=== PATIENT | male | born 1955 | race Caucasian/White ===

== ENCOUNTER → 2020-04-08 09:20 | Outpatient (BNVA) | payer OTHER, SELFPAY | PROVIDERS: PCP Family Medicine; Visit Provider Internal Medicine Cardiovascular Disease | DX: I48.0 Paroxysmal atrial fibrillation (principal); R06.02 Shortness of breath; I44.7 Left bundle-branch block, unspecified | CPT/HCPCS: 93005 ==

== ENCOUNTER → 2020-04-29 13:26 | Outpatient (REF) | payer OTHER, SELFPAY ==
--- NOTE | 2020-04-29 13:28 | HM_ITS ---
TEST PERFORMED: Cardiac event monitoring. REQUESTING PHYSICIAN: Dr. Fragoso. INDICATION: Paroxysmal atrial fibrillation. ENROLLMENT PERIOD: 04/29/2020 to 05/29/2020. FINDINGS: In the above monitoring period, the underlying rhythm was sinus. Overall, there is no evidence of any supraventricular or ventricular arrhythmias or ectopy. There was no evidence of any atrial fibrillation. Heart rates state ranged from 68 to 86/min. CONCLUSION: Study shows sinus rhythm only without any evidence of atrial fibrillation or other arrhythmias. Kanu Holman MD HS/FERNY / [id number] MTDD
--- NOTE | 2020-04-29 13:28 | CA_ITS ---
Transthoracic Echocardiogram Patient (Last, First, Middle): Kevin Vaughn J Gender: Male Date of : 1955 Age: 64 Procedure Date: 04/29/2020 Procedure Type: Transthoracic Echocardiogram Location: OP Height: 180.34 cm Weight: 97.52 kg BSA: 2.17 m2 Heart Rate: bpm BP: 140 / 75 mmHg Spike Maker: NARDA Referring MD: Tyson Fragoso MD Symptoms: R06.02 - Shortness of breath Study Quality: Fair ECG Rhythm: Sinus Conclusions: - The left ventricular systolic function is normal. The visually estimated ejection fraction is between 55-60%. - There is mild calcification of the aortic valve. - No obvious valvular pathology seen on this study. Findings Left Ventricle Normal left ventricular cavity size. There is mildly increased left ventricular wall thickness. The left ventricular systolic function is normal. The visually estimated ejection fraction is between 55-60%. There is no evidence of regional wall motion abnormalities. Diastolic function is normal for age. Right Ventricle Normal right ventricular cavity size and systolic function. Atria The left atrium is normal in size. The right atrium is normal in size. Aortic Valve There is a normal trileaflet aortic valve. There is mild calcification of the aortic valve. There is no aortic valve stenosis. There is no aortic valve regurgitation. Mitral Valve The mitral valve appears normal. There is no mitral valve regurgitation. There is no mitral valve stenosis. Pulmonic Valve The pulmonic valve was not well visualized. Tricuspid Valve Normal tricuspid valve structure. There is trace tricuspid valve regurgitation. The pulmonary artery systolic pressure is normal. Great Vessels Top normal ascending aortic size at 3.6 cm. Venous The inferior vena cava was not well visualized. The inferior vena cava is normal in size and collapses greater than 50% with inspiration. Pericardium/Pleural There is no evidence of pericardial effusion. Recommendations, Care & Conclusions No obvious valvular pathology seen on this study. Measurements 2D Linear Measurements IVSd: 1.50 0.6-0.9/0.6-1.0 cm LVIDd: 3.95 3.9-5.3/4.2-5.9 cm LVIDd Index: 1.82 2.4-3.2/2.2-3.1 cm/m2 LVIDs: 2.74 2.0-3.6 cm LVPWd: 1.34 0.7-1.1 cm Ao Root: 3.80 2.1-3.5 cm LA Diam: 2.90 2.7-3.8/3.0-4.0 cm LAIDs Index: 1.34 1.5-2.3 cm/m2 LV Mass: 261.47 67-162/88-224 g LV Mass Index: 120.49 43-95/49-115 g/m2 LVOT Diam: 2.40 3.0+(-)1.3 cm 2D Systolic Function EF 4C: 64.60 >55% Mitral Valve MV Pk E: 0.64 MV PK A: 0.93 MV Decel Time: 187.00 E/A: 0.70 E'Lateral: 6.00 E'Medial: 7.06 E/E' Med: 9.10 E/E' Lat: 10.70 PHT: 55.00 MVA PHT: 4.00 Decel [place]: 3.43 Aortic Valve AoV Pk Anibal: 1.10 AoV Pk Grad: 5.00 LVOT LVOT Pk Anibal: 0.89 LVOT Mn Anibal: 0.60 LVOT VTI: 0.18 LVOT Pk Grad: 3.00 LVOT Mn Grad: 2.00 LVOT Diam: 2.40 LVOT Area: 4.52 Diastolic Function MV Pk E: 0.64 MV Pk A: 0.93 E/A: 0.70 E'Medial: 7.06 E/E' Med: 9.10 E' Laterial: 6.00 E/E' Lat: 10.70 Tricuspid Valve TR Pk Anibal: 2.32 TR Pk Grad: 22.00 Great Vessels Aorta Ao Root-2D: 3.80 2.0-3.7 cm Ao Asc: 3.60 2.1-3.4 cm Updated in Other Vendor System with Status of Final Kanu Holman MD electronically signed on 04/29/2020 5:15:02 PM with status of Final
== END ==
LOC: HO.CARD 13:26
PROVIDERS: PCP Family Medicine; Visit Provider Internal Medicine Cardiovascular Disease
DX: I48.0 Paroxysmal atrial fibrillation (principal); I44.7 Left bundle-branch block, unspecified; I10 Essential (primary) hypertension; R06.02 Shortness of breath
CPT/HCPCS: 93270; 93306

== ENCOUNTER → 2020-06-05 08:28 | Outpatient (BNVA) | payer OTHER, SELFPAY | PROVIDERS: PCP Family Medicine; Visit Provider Internal Medicine Cardiovascular Disease | DX: R06.02 Shortness of breath (principal); I48.0 Paroxysmal atrial fibrillation; I44.7 Left bundle-branch block, unspecified; I10 Essential (primary) hypertension | CPT/HCPCS: 93005 ==

== ENCOUNTER 2020-06-10 15:45 | Outpatient (REF) | payer OTHER, SELFPAY ==
--- NOTE | ~2020-06-10 | XR_ITS ---
EXAMINATION: XR CHEST CLINICAL INFORMATION: Shortness of breath. COMPARISON: Chest 09/13/2019 TECHNIQUE: 2 views of the chest were obtained. FINDINGS: The lungs are well-expanded and clear of acute process. The heart size and pulmonary vascularity is normal. There is mild spondylosis dorsal spine. No lytic process seen. XR/XR chest 2V IMPRESSION: Unremarkable chest exam
== END 2020-06-10 15:46 | disposition home or self-care (01) ==
LOC: HO.XRAY 15:45
PROVIDERS: PCP Family Medicine; Visit Provider Internal Medicine
DX: R06.02 Shortness of breath (principal); J30.9 Allergic rhinitis, unspecified; J98.01 Acute bronchospasm
CPT/HCPCS: 71046

== ENCOUNTER 2020-07-04 15:45 | Outpatient (REF) | payer OTHER, SELFPAY ==
--- NOTE | 2020-07-04 17:22 | PFT_ITS ---
FLOWS: FEV1 of 82% of predicted at 2.89 L. FVC 74% of predicted at 3.53 L. FEV1 to FVC ratio of 0.82. No bronchodilator response. LUNG VOLUMES: Total lung capacity 87% of predicted at 6.30 L. Residual volume 109% of predicted at 2.67 L. Slow vital capacity 75% of predicted at 3.63 L. Expiratory reserve volume 24% of predicted at 0.34 L. Diffusion capacity is mildly decreased, diffusion capacity suggests normal after correction for alveolar ventilation. IMPRESSION: No obstructive or restrictive ventilatory defect. No bronchodilator response. Decreased expiratory reserve volume suggests extrathoracic restriction likely secondary to abdominal obesity. Daquan Limon MD AP/MODL / [id number]
== END 2020-07-04 15:46 | disposition home or self-care (01) ==
LOC: HO.RESP 15:45
PROVIDERS: PCP Family Medicine; Visit Provider Internal Medicine
DX: J98.01 Acute bronchospasm (principal); R06.02 Shortness of breath
CPT/HCPCS: 94060; 94727; 94729

== ENCOUNTER → 2020-07-10 15:16 | Outpatient (BNVA) | payer OTHER, SELFPAY | PROVIDERS: PCP Family Medicine; Visit Provider Internal Medicine ==

== ENCOUNTER 2020-11-26 13:50 | Outpatient (REF) | payer OTHER, SELFPAY | END 2020-11-26 13:51 | disposition home or self-care (01) | LOC: HO.HMGCLDS 13:50 | PROVIDERS: PCP Family Medicine; Visit Provider Internal Medicine | DX: Z20.822 Contact with and (suspected) exposure to COVID-19 (principal) | CPT/HCPCS: C9803; U0003; U0005 ==

== ENCOUNTER 2021-03-24 06:13 | Outpatient (REF) | payer OTHER, SELFPAY | END 2021-03-24 06:14 | disposition home or self-care (01) | LOC: HO.HMGCLDS 06:13 | PROVIDERS: PCP Family Medicine; Visit Provider Internal Medicine | DX: Z20.822 Contact with and (suspected) exposure to COVID-19 (principal) | CPT/HCPCS: C9803; U0003; U0005 ==

== ENCOUNTER → 2021-04-14 15:17 | Outpatient (BNVA) | payer OTHER, SELFPAY | PROVIDERS: PCP Family Medicine; Visit Provider Internal Medicine ==

== ENCOUNTER 2021-06-11 08:41 | Outpatient (REF) | payer OTHER, SELFPAY ==
--- NOTE | ~2021-06-11 | XR_ITS ---
EXAMINATION: XR ANKLE, RIGHT CLINICAL INFORMATION: Right ankle pain COMPARISON: None TECHNIQUE: AP, lateral, and mortise views of the right ankle. FINDINGS: No fracture or dislocation. The ankle mortise is congruent. Circumferential soft tissue swelling. No ankle joint effusion. Vascular calcifications. Heel spurs. XR/XR ankle RT min 3V IMPRESSION: Soft tissue swelling diffusely. No acute osseous abnormality. Heel spurs.
== END 2021-06-11 08:42 | disposition home or self-care (01) ==
LOC: HO.HMGCX 08:41
PROVIDERS: Visit Provider Nurse Practitioner Family
DX: M25.571 Pain in right ankle and joints of right foot (principal); M77.31 Calcaneal spur, right foot
CPT/HCPCS: 73610

== ENCOUNTER 2021-08-26 08:37 | Outpatient (REF) | payer OTHER, SELFPAY ==
[2021-08-26 11:04] LABS: Hematocrit 47.3 % (42.0-52.0); Hemoglobin 15.6 g/dl (14.0-18.0); Mean Corpuscular Hemoglobin 27.8 pg (27.0-33.0); Mean Corpuscular Volume 84.3 fL (80.0-98.0); Mean Platelet Volume 9.6 fL (9.4-12.4); Platelet Count 186 X10*3/uL (160-400); Red Blood Count 5.61 X10*6/uL (4.60-5.80); Red Cell Distribution Width 14.4 % (11.0-16.0); White Blood Count 6.6 X10*3/uL (4.8-10.8)
[2021-08-26 11:52] LABS: Anion Gap 11 (12-20); Blood Urea Nitrogen 19 mg/dL (9-16); Calcium 10.1 mg/dL (8.4-10.2); Carbon Dioxide 29 mmol/L (22-29); Chloride 102 mmol/L (96-108); Estimated Glomerular Filt Rate 45; Glucose Random 129 mg/dL (60-115); Sodium 137 mmol/L (135-145)
== END 2021-08-26 08:38 | disposition home or self-care (01) ==
LOC: HO.LAB 08:37
PROVIDERS: PCP Family Medicine; Referring Provider Family Medicine; Visit Provider Internal Medicine Cardiovascular Disease
DX: I48.0 Paroxysmal atrial fibrillation (principal); I44.7 Left bundle-branch block, unspecified; I10 Essential (primary) hypertension
CPT/HCPCS: 36415; 80048; 85027; 93005

== ENCOUNTER 2022-02-26 12:40 | Emergency (ER) | payer BC, SELFPAY ==
--- NOTE | ~2022-02-26 | CT_ITS ---
EXAMINATION: CT ANGIOGRAM OF THE CHEST WITH AND WITHOUT CONTRAST (CT PULMONARY ANGIOGRAM FOR PE) CLINICAL INFORMATION: Reason for Exam COVID positive, pleuritic chest pain, dyspnea, rul COMPARISON: Chest radiographs 02/26/2022, remote CTA chest 11/29/2013. TECHNIQUE: Prior to contrast administration, noncontrast localization images were obtained. Subsequently, multidetector volumetric imaging was performed from the thoracic inlet to below the diaphragms following the administration of 65 mL Omnipaque 350 intravenous contrast. No contrast reaction reported Sagittal, coronal, and MIP oblique sagittal reformatted images were obtained on the CT workstation, uploaded to PACS, and reviewed. This CT examination was performed using dose optimization techniques as appropriate, variously including the following: *Automated exposure control *Adjustment of mA and/or kV according to patient size (this includes techniques or standardized protocols for targeted exams where dose is matched to indication/reason for exam; i.e. extremities or head) *Use of iterative reconstruction technique Total exam dose-length product 318 mGy-cm FINDINGS: QUALITY OF STUDY/CONTRAST BOLUS: Satisfactory. PULMONARY ARTERIES: No central or segmental pulmonary emboli. THORACIC AORTA: No aneurysm or dissection. 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 LUNG: No focal consolidation, nodules or masses. There is no bronchiectasis. Mild thickening of the bronchiolar markings is seen bilateral lower zones. PLEURA: No pleural effusion or pneumothorax. MEDIASTINUM: Normal heart size. No pericardial effusion. No hilar or mediastinal lymphadenopathy. No evidence of septal bowing or right heart strain. CORONARY ARTERY CALCIFICATION: Present. CHEST WALL/AXILLA: No axillary or internal mammary lymphadenopathy. OSSEOUS STRUCTURES: No acute or suspicious osseous abnormality. UPPER ABDOMEN: Unremarkable. No reflux of contrast into the hepatic veins to suggest elevated right heart pressures. CT/CT angio chest PE protocol IMPRESSION: 1. No pulmonary embolism. 2. Mild thickening of bronchiolar markings bilateral lower zones. No focal consolidation, effusion, or adenopathy. 3. Congenital aberrant right subclavian artery similar to prior exam. VTE: negative
--- NOTE | ~2022-02-26 | XR_ITS ---
EXAMINATION: XR CHEST CLINICAL INFORMATION: Shortness of breath. Cough. COMPARISON: None TECHNIQUE: 2 views of the chest were obtained. FINDINGS: The lungs are hyperinflated but clear of acute process. The heart size and pulmonary vascularity is normal. There is mild spondylosis of dorsal spine without lytic or sclerotic process. XR/XR chest 2V IMPRESSION: Unremarkable chest exam.
[2022-02-26 13:45] VITALS: BP 137/82; PULSE 87; RESP 22; TEMP 36.6; O2SAT 96; BMI 30.7
--- NOTE | 2022-02-26 13:45 | ED.URI ---
HPI - URI/Sore Throat General Chief Complaint: Dyspnea <Cheryl Rosado CNP - Last Filed: 02/26/22 13:52> Stated Complaint: chest congestion, cough <Cheryl Rosado CNP - Last Filed: 02/26/22 13:52> Time Seen by Provider: 02/26/22 14:06 <Cheryl Rosado CNP - Last Filed: 02/26/22 13:52> Source: patient <Carlos Alberto Mustafa MD - Last Filed: 02/26/22 17:37> Mode of arrival: ambulatory <Carlos Alberto Mustafa MD - Last Filed: 02/26/22 17:37> Limitations: no limitations <Carlos Alberto Mustafa MD - Last Filed: 02/26/22 17:37> History of Present Illness HPI Narrative: 58-year-old male who presents emergency department for evaluation of cough, chest pain, shortness of breath and dyspnea on exertion. The patient states that he became ill on 02/19/2022 (2 weeks prior to evaluation). He states that he had fever, chills, cough, chest pain and shortness of breath. The patient then tested positive for COVID-19 on Tuesday02/17/2022 (9 days prior to evaluation). The patient states that he did received 2 Pfizer vaccinations and a booster vaccination. The patient states that he could not take Paxlovid but he was treated with remdesivir IV daily x3 does. He states that he did feel slightly better however he continues to have a persistent, nonproductive cough which is causing him to have pleuritic chest pain diffusely throughout his anterior chest. He states that the pain with coughing is 8/10. He chest pain with respiration. Patient states he has been taking Tylenol, antihistamines and cough suppressants with no relief of his cough in his chest pain. He states that he has not been able to sleep the last 24 hours secondary to the cough and pain. Patient states he does have a history of atrial fibrillation and he does take Xarelto (rivaroxaban). He has not noticed any pain or swelling in his lower extremities. <Carlos Alberto Mustafa MD - Last Filed: 02/26/22 17:37> Related Data Home Medications: Home Medications Medication Instructions Recorded Confirmed allopurinol 300 mg tablet 300 mg PO DAILY 04/08/20 08/26/21 clonazepam 0.5 mg tablet 0.5 mg PO BID PRN 04/08/20 08/26/21 fluticasone propionate 50 1 spray intranasal DAILY 07/10/20 08/26/21 mcg/actuation nasal spray,suspension (Flonase Allergy Relief) propranolol 80 mg tablet 40 mg PO BID 10/09/21 guaifenesin 600 mg tablet, 600 mg PO BID PRN 11/17/21 extended release 12 hr (Mucinex) losartan 50 mg tablet 50 mg PO DAILY 11/17/21 Previous Rx's Medication Instructions Recorded rivaroxaban 20 mg tablet (Xarelto) 20 mg PO QPM #90 tabs 10/09/21 montelukast 10 mg tablet 10 mg PO BEDTIME for asthma #90 12/25/21 tabs albuterol sulfate 90 mcg/actuation 2 puff inhalation Q4-6H PRN 02/26/22 aerosol inhaler (ProAir HFA) shortness of breath or wheezing #8.5 grams oxycodone 5 mg tablet 5 mg PO Q4H PRN pain #14 tabs 02/26/22 <Cheryl Rosado CNP - Last Filed: 02/26/22 13:52> Allergies/Adverse Reactions: Allergies Allergy/AdvReac Type Severity Reaction Status Date / Time No Known Drug Allergies Allergy Unknown NONE Verified 11/17/21 16:37 <Cheryl Rosado CNP - Last Filed: 02/26/22 13:52> Review of Systems Review of Systems: Yes all other systems are reviewed and are negative <Carlos Alberto Mustafa MD - Last Filed: 02/26/22 17:37> [facility] Past Medical History [facility] Narrative: Social history: He denies tobacco use. States that he drinks alcohol on the weekends. Denies drug use. <Carlos Alberto Mustafa MD - Last Filed: 02/26/22 17:37> Medical History: Medical History Allergic rhinitis Cough Cough due to bronchospasm HTN (hypertension) LBBB (left bundle branch block) Paroxysmal atrial fibrillation <Cheryl Rosado CNP - Last Filed: 02/26/22 13:52> Surgical History: Surgical History History of hip surgery History of knee surgery <Cheryl Rosado CNP - Last Filed: 02/26/22 13:52> Family History Family History: Family History Father Myocardial infarction Mother Diabetes <Cheryl Rosado CNP - Last Filed: 02/26/22 13:52> Social History Social History: Social History Alcohol intake: current Alcohol intake frequency: holidays/special occasions only Patient Tobacco Use Status: Never used Tobacco Smoked in Last 30 Days: No Use of substances other than those prescribed or required for medical reasons: No Advance Directives: No <Cheryl Rosado CNP - Last Filed: 02/26/22 13:52> Physical Exam Vital Signs: Vital Signs: Last Vital Signs Temp 97.9 F 02/26/22 13:45 Pulse 87 02/26/22 13:45 Resp 22 H 02/26/22 13:45 BP 137/82 02/26/22 13:45 Pulse Ox 96 02/26/22 13:45 O2 Del Method 02/26/22 13:45 BMI result Body Mass Index 30.7 <Cheryl Rosado CNP - Last Filed: 02/26/22 13:52> Vital Signs: Last Vital Signs Temp 97.9 F 02/26/22 13:45 Pulse 87 02/26/22 13:45 Resp 22 H 02/26/22 13:45 BP 137/82 02/26/22 13:45 Pulse Ox 96 02/26/22 13:45 O2 Del Method 02/26/22 13:45 BMI result Body Mass Index 30.7 <Carlos Alberto Mustafa MD - Last Filed: 02/26/22 17:37> Const: Other: Awake, alert, male patient, answers all questions appropriately, as paroxysm of coughing which caused some have significant chest pain, cough sounds nonproductive <Carlos Alberto Mustafa MD - Last Filed: 02/26/22 17:37> HEENT: Head: Yes normal to inspection, Yes normocephalic and Yes atraumatic <MD Nicky Gallagher Last Filed: 02/26/22 17:37> Ears: external ears normal <MD Nicky Gallagher Last Filed: 02/26/22 17:37> General nose exam: Normal external nose present <MD Nicky Gallagher Last Filed: 02/26/22 17:37> Face and sinus: Yes normal facial exam <MD Nicky Gallagher Last Filed: 02/26/22 17:37> Mouth: Normal oral and palatal mucosa present <MD Nicky Gallagher Last Filed: 02/26/22 17:37> Throat: Yes posterior oropharynx normal <MD Nicky Gallagher Last Filed: 02/26/22 17:37> Eyes: General: appearance normal, both eyes and all related structures <MD Nicky Gallagher Last Filed: 02/26/22 17:37> Pupils: Equal, round and reactive pupils present <MD Nicky Gallagher Last Filed: 02/26/22 17:37> Neck: Neck: Yes normal visual inspection, Yes no lymphadenopathy, Yes trachea midline and Yes supple <MD Nicky Gallagher Last Filed: 02/26/22 17:37> Chest: Chest palpation & inspection: normal inspection of the chest and normal palpation of entire chest wall <MD Nicky Gallagher Last Filed: 02/26/22 17:37> Resp: Effort & Inspection: normal respiratory effort and able to speak in complete sentences <MD Nicky Gallagher Last Filed: 02/26/22 17:37> Auscultation: rhonchi (Diffuse rhonchi), no wheezes and other (Breath sounds diminished at the bases but symmetric) <MD Nicky Gallagher Last Filed: 02/26/22 17:37> Cardio: Rate: regular rate <MD Nicky Gallagher Last Filed: 02/26/22 17:37> Rhythm: regular rhythm <Carlos Alberto Mustafa MD - Last Filed: 02/26/22 17:37> Heart sounds: S1 normal heart sound present, S2 normal heart sound present and no murmurs <Carlos Alberto Mustafa MD - Last Filed: 02/26/22 17:37> GI: Inspection: Yes normal to inspection <Carlos Alberto Mustafa MD - Last Filed: 02/26/22 17:37> Palpation (GI): Soft to palpation, nontender and no guarding <Carlos Alberto Mustafa MD - Last Filed: 02/26/22 17:37> Auscultation: normal bowel sounds <Carlos Alberto Mustafa MD - Last Filed: 02/26/22 17:37> : General: Yes no CVA tenderness <Carlos Alberto Mustafa MD - Last Filed: 02/26/22 17:37> Back/Spine/Pelvis: Back: no CVA tenderness <Carlos Alberto Mustafa MD - Last Filed: 02/26/22 17:37> Skin: General skin exam: no rashes or lesions noted <Carlos Alberto Mustafa MD - Last Filed: 02/26/22 17:37> Neuro: Cranial nerves: Yes CN's II-XII intact bilaterally and Yes Equal, round and reactive pupils present <Carlos Alberto Mustafa MD - Last Filed: 02/26/22 17:37> Cognition (Neuro): normal cognition <Carlos Alberto Mustafa MD - Last Filed: 02/26/22 17:37> Motor exam (neuro): 5/5 motor strength present throughout <Carlos Alberto Mustafa MD - Last Filed: 02/26/22 17:37> Extrem: General: Yes normal to inspection <Carlos Alberto Mustafa MD - Last Filed: 02/26/22 17:37> Psych: Appearance: grossly normal <Carlos Alberto Mustafa MD - Last Filed: 02/26/22 17:37> Speech and movement: Normal speech and movement present <Carlos Alberto Mustafa MD - Last Filed: 02/26/22 17:37> Affect: normal affect <Carlos Alberto Mustafa MD - Last Filed: 02/26/22 17:37> Attitude: cooperative <Carlos Alberto Mustafa MD - Last Filed: 02/26/22 17:37> Thought process: Normal thought process present <Carlos Alberto Mustafa MD - Last Filed: 02/26/22 17:37> Thought content: Normal thought content present <Carlos Alberto Mustafa MD - Last Filed: 02/26/22 17:37> Course Course Course Narrative: RME: Patient is a 66-year-old male with past medical history of Atrial fibrillation, HTN, mild asthma who presents emergency department for evaluation of cough, chest congestion. COVID-19 positive 9 days ago, due to anticoagulant was unable to take Paxlovid, took monoclonal antibody infusion. Initially was feeling better intil symptoms worsened 5 days ago, feeling feverish, worse cough, and facial pain/pressure. PE: Appears fatigued, no apparent respiratory distress, rhonchi upper lobes, diminished at the bilateral bases. Plan: Chest x-ray <Cheryl Rosado CNP - Last Filed: 02/26/22 13:52> RME: Patient is a 66-year-old male with past medical history of Atrial fibrillation, HTN, mild asthma who presents emergency department for evaluation of cough, chest congestion. COVID-19 positive 9 days ago, due to anticoagulant was unable to take Paxlovid, took monoclonal antibody infusion. Initially was feeling better intil symptoms worsened 5 days ago, feeling feverish, worse cough, and facial pain/pressure. PE: Appears fatigued, no apparent respiratory distress, rhonchi upper lobes, diminished at the bilateral bases. Plan: Chest x-ray Course: RME was reviewed: 58-year-old male with COVID symptoms times 14 days, tested positive 9 days prior who presents emergency department for evaluation of persistent cough, chest pain, shortness of breath, dyspnea on exertion. Patient has paroxysms of coughing which caused significant anterior chest pain. Vital signs revealed an elevated respiratory rate of 22 with an O2 saturation of 96% on room air. Lung exam revealed diffuse rhonchi with diminished breath sounds at the bases but the breath sounds are symmetric. Chest x-ray ordered by provider in triage revealed no acute disease. I ordered a laboratory evaluation includes CBC, CMP, D-dimer, PT/INR, PTT, LDH, ferritin, CRP and ESR. I will obtain a CT scan of the chest with IV contrast PE protocol to rule out pulmonary embolism as the cause of his symptoms. Patient was ordered to get Toradol 15 mg IV for his pleuritic chest pain and oxycodone 5 mg orally for his cough. 17 14: Laboratory evaluation: Elevated ESR 40, elevated CRP 4.83, elevated iron 304. Elevated BUN and creatinine 19 and 1.45-chronic. Radiology evaluation: Chest x-ray was unremarkable. CT pulmonary angiogram PE protocol interpreted as follows: IMPRESSION: 1. No pulmonary embolism. 2. Mild thickening of bronchiolar markings bilateral lower zones. No focal consolidation, effusion, or adenopathy. 3. Congenital aberrant right subclavian artery similar to prior exam. VTE: negative Dictated By:Santosh Mcdonough MD The patient's workup was reassuring suggesting that the patient's symptoms are secondary to his COVID-19 infection with no evidence of pneumonia or pulmonary embolism. The patient did get some improvement with the above treatment he was given a 2nd dose of oxycodone 5 mg orally and albuterol inhaler 2 puffs with spacer. Patient will be discharged home with a prescription for oxycodone albuterol. <Carlos Alberto Mustafa MD - Last Filed: 02/26/22 17:37> Medications Administered Discontinued Medications Generic Name Dose Route Start Last Admin Trade Name Freq PRN Reason Stop Dose Admin Sodium Chloride 1,000 mls @ 999 mls/hr 02/26/22 14:40 02/26/22 16:54 Ns IV 02/26/22 15:40 Infused .Q1H1M STA Infusion Iohexol 100 ml 02/26/22 16:26 02/26/22 16:27 Iohexol 350 Mg/Ml 100 Ml Infus..Btl IV 02/26/22 16:27 65 ml ONCE ONE Administration Ketorolac Tromethamine 15 mg 02/26/22 14:40 02/26/22 15:32 Ketorolac Tromethamine 15 Mg/Ml Vial IVPUSH 02/26/22 14:41 15 mg ONCE STA Administration Oxycodone HCl 5 mg 02/26/22 14:40 02/26/22 15:31 Oxycodone Hcl Immed Release 5 Mg Tablet PO 02/26/22 14:41 5 mg ONCE STA Administration <Cheryl Stephanie Barcome, WELFARE AIDE - Last Filed: 02/26/22 13:52> Medications Administered Discontinued Medications Generic Name Dose Route Start Last Admin Trade Name Hernesto PRN Reason Stop Dose Admin Sodium Chloride 1,000 mls @ 999 mls/hr 02/26/22 14:40 02/26/22 16:54 Ns IV 02/26/22 15:40 Infused .Q1H1M STA Infusion Iohexol 100 ml 02/26/22 16:26 02/26/22 16:27 Iohexol 350 Mg/Ml 100 Ml Infus..Btl IV 02/26/22 16:27 65 ml ONCE ONE Administration Ketorolac Tromethamine 15 mg 02/26/22 14:40 02/26/22 15:32 Ketorolac Tromethamine 15 Mg/Ml Vial IVPUSH 02/26/22 14:41 15 mg ONCE STA Administration Oxycodone HCl 5 mg 02/26/22 14:40 02/26/22 15:31 Oxycodone Hcl Immed Release 5 Mg Tablet PO 02/26/22 14:41 5 mg ONCE STA Administration <Carlos Alberto Mustafa MD - Last Filed: 02/26/22 17:37> MDM - URI/Sore Throat Medical Records Attestation: I reviewed the patient's medical records. <Carlos Alberto Mustafa MD - Last Filed: 02/26/22 17:37> Lab Data Attestation: I reviewed the patient's lab results. <Carlos Alberto Mustafa MD - Last Filed: 02/26/22 17:37> Result diagrams: : 02/26/22 15:22 02/26/22 15:22 <Cheryl Rosado CNP - Last Filed: 02/26/22 13:52> Labs: Lab Results 02/26/22 02/26/22 02/26/22 Range/Units 15:22 15:22 15:22 WBC 7.8 (4.8-10.8) X10*3/uL RBC 5.33 (4.60-5.80) X10*6/uL Hgb 15.0 (14.0-18.0) g/dl Hct 45.0 (42.0-52.0) % MCV 84.4 (80.0-98.0) fL MCH 28.1 (27.0-33.0) pg MCHC 33.3 (31.0-36.0) g/dl RDW 12.9 (11.0-16.0) % Plt Count 217 (160-400) X10*3/uL MPV 9.2 L (9.4-12.4) fL Immature Gran % (Auto) 0.6 H (0.0-0.4) % Neut % (Auto) 64.7 (45-73) % Lymph % (Auto) 17.2 L (20-40) % Bollinger % (Auto) 11.9 H (2-11) % Eos % (Auto) 5.2 H (0-4) % Baso % (Auto) 0.4 (0-2) % Lymph # (Auto) 1.4 (1.2-4.9) X10*3/uL Bollinger # (Auto) 0.9 (0.1-1.2) X10*3/uL Eos # (Auto) 0.4 (0.0-0.4) X10*3/uL Baso # (Auto) 0.0 (0.0-0.2) X10*3/uL Abs Immat Gran (auto) 0.05 H (0.00-0.03) X10*3/uL Absolute Neuts (auto) 5.1 (2.0-8.3) x10*3/uL Absolute Nucleated RBC 0.000 (0.0-0.012) X10*3/uL Nucleated RBC % (auto) 0.0 (0.0-0.2) /100WBC ESR 40 H (0-15) MM/HR PT 16.0 H (10.0-13.1) SEC INR 1.4 H (0.9-1.1) APTT 33.1 (26.0-36.4) SEC D-Dimer High Sensitivty < 150 NG/ML Sodium (135-145) mmol/L Potassium (3.3-5.1) mmol/L Chloride (96-108) mmol/L Carbon Dioxide (22-29) mmol/L Anion Gap (12-20) BUN (9-16) mg/dL Creatinine (0.5-1.4) mg/dL Estim Creat Clear Calc Estimated GFR Random Glucose (60-115) mg/dL Lactic Acid (0.5-2.0) mmol/L Calcium (8.4-10.2) mg/dL Ferritin (20-250) ng/mL Total Bilirubin (0.0-1.0) mg/dL AST (5-37) U/L ALT (0-40) U/L Alkaline Phosphatase (39-117) U/L Lactate Dehydrogenase (118-273) U/L Total Creatine Kinase (38-174) U/L Troponin I High Sens (<3.5-35.0) ng/L C-Reactive Protein (< or = 0.50) mg/dL Total Protein (6.5-8.0) g/dL Albumin (3.5-5.0) g/dL 02/26/22 02/26/22 02/26/22 Range/Units 15:22 15:22 15:22 WBC (4.8-10.8) X10*3/uL RBC (4.60-5.80) X10*6/uL Hgb (14.0-18.0) g/dl Hct (42.0-52.0) % MCV (80.0-98.0) fL MCH (27.0-33.0) pg MCHC (31.0-36.0) g/dl RDW (11.0-16.0) % Plt Count (160-400) X10*3/uL MPV (9.4-12.4) fL Immature Gran % (Auto) (0.0-0.4) % Neut % (Auto) (45-73) % Lymph % (Auto) (20-40) % Bollinger % (Auto) (2-11) % Eos % (Auto) (0-4) % Baso % (Auto) (0-2) % Lymph # (Auto) (1.2-4.9) X10*3/uL Bollinger # (Auto) (0.1-1.2) X10*3/uL Eos # (Auto) (0.0-0.4) X10*3/uL Baso # (Auto) (0.0-0.2) X10*3/uL Abs Immat Gran (auto) (0.00-0.03) X10*3/uL Absolute Neuts (auto) (2.0-8.3) x10*3/uL Absolute Nucleated RBC (0.0-0.012) X10*3/uL Nucleated RBC % (auto) (0.0-0.2) /100WBC ESR (0-15) MM/HR PT (10.0-13.1) SEC INR (0.9-1.1) APTT (26.0-36.4) SEC D-Dimer High Sensitivty NG/ML Sodium 138 (135-145) mmol/L Potassium 5.2 H (3.3-5.1) mmol/L Chloride 103 (96-108) mmol/L Carbon Dioxide 26 (22-29) mmol/L Anion Gap 14 (12-20) BUN 19 H (9-16) mg/dL Creatinine 1.45 H (0.5-1.4) mg/dL Estim Creat Clear Calc 58.6 Estimated GFR 48 Random Glucose 99 (60-115) mg/dL Lactic Acid 0.7 (0.5-2.0) mmol/L Calcium 9.6 (8.4-10.2) mg/dL Ferritin (20-250) ng/mL Total Bilirubin 0.5 (0.0-1.0) mg/dL AST 21 (5-37) U/L ALT 27 (0-40) U/L Alkaline Phosphatase 54 (39-117) U/L Lactate Dehydrogenase (118-273) U/L Total Creatine Kinase 155 (38-174) U/L Troponin I High Sens 9.2 (<3.5-35.0) ng/L C-Reactive Protein 4.83 H (< or = 0.50) mg/dL Total Protein 6.9 (6.5-8.0) g/dL Albumin 4.0 (3.5-5.0) g/dL 02/26/ Range/Units 15:22 WBC (4.8-10.8) X10*3/uL RBC (4.60-5.80) X10*6/uL Hgb (14.0-18.0) g/dl Hct (42.0-52.0) % MCV (80.0-98.0) fL MCH (27.0-33.0) pg MCHC (31.0-36.0) g/dl RDW (11.0-16.0) % Plt Count (160-400) X10*3/uL MPV (9.4-12.4) fL Immature Gran % (Auto) (0.0-0.4) % Neut % (Auto) (45-73) % Lymph % (Auto) (20-40) % Bollinger % (Auto) (2-11) % Eos % (Auto) (0-4) % Baso % (Auto) (0-2) % Lymph # (Auto) (1.2-4.9) X10*3/uL Bollinger # (Auto) (0.1-1.2) X10*3/uL Eos # (Auto) (0.0-0.4) X10*3/uL Baso # (Auto) (0.0-0.2) X10*3/uL Abs Immat Gran (auto) (0.00-0.03) X10*3/uL Absolute Neuts (auto) (2.0-8.3) x10*3/uL Absolute Nucleated RBC (0.0-0.012) X10*3/uL Nucleated RBC % (auto) (0.0-0.2) /100WBC ESR (0-15) MM/HR PT (10.0-13.1) SEC INR (0.9-1.1) APTT (26.0-36.4) SEC D-Dimer High Sensitivty NG/ML Sodium (135-145) mmol/L Potassium (3.3-5.1) mmol/L Chloride (96-108) mmol/L Carbon Dioxide (22-29) mmol/L Anion Gap (12-20) BUN (9-16) mg/dL Creatinine (0.5-1.4) mg/dL Estim Creat Clear Calc Estimated GFR Random Glucose (60-115) mg/dL Lactic Acid (0.5-2.0) mmol/L Calcium (8.4-10.2) mg/dL Ferritin 304 H (20-250) ng/mL Total Bilirubin (0.0-1.0) mg/dL AST (5-37) U/L ALT (0-40) U/L Alkaline Phosphatase (39-117) U/L Lactate Dehydrogenase 198 (118-273) U/L Total Creatine Kinase (38-174) U/L Troponin I High Sens (<3.5-35.0) ng/L C-Reactive Protein (< or = 0.50) mg/dL Total Protein (6.5-8.0) g/dL Albumin (3.5-5.0) g/dL <Cheryl Rosado, WELFARE AIDE - Last Filed: 02/26/22 13:52> Lab Results 02/26/22 02/26/22 02/26/22 Range/Units 15:22 15:22 15:22 WBC 7.8 (4.8-10.8) X10*3/uL RBC 5.33 (4.60-5.80) X10*6/uL Hgb 15.0 (14.0-18.0) g/dl Hct 45.0 (42.0-52.0) % MCV 84.4 (80.0-98.0) fL MCH 28.1 (27.0-33.0) pg MCHC 33.3 (31.0-36.0) g/dl RDW 12.9 (11.0-16.0) % Plt Count 217 (160-400) X10*3/uL MPV 9.2 L (9.4-12.4) fL Immature Gran % (Auto) 0.6 H (0.0-0.4) % Neut % (Auto) 64.7 (45-73) % Lymph % (Auto) 17.2 L (20-40) % Bollinger % (Auto) 11.9 H (2-11) % Eos % (Auto) 5.2 H (0-4) % Baso % (Auto) 0.4 (0-2) % Lymph # (Auto) 1.4 (1.2-4.9) X10*3/uL Bollinger # (Auto) 0.9 (0.1-1.2) X10*3/uL Eos # (Auto) 0.4 (0.0-0.4) X10*3/uL Baso # (Auto) 0.0 (0.0-0.2) X10*3/uL Abs Immat Gran (auto) 0.05 H (0.00-0.03) X10*3/uL Absolute Neuts (auto) 5.1 (2.0-8.3) x10*3/uL Absolute Nucleated RBC 0.000 (0.0-0.012) X10*3/uL Nucleated RBC % (auto) 0.0 (0.0-0.2) /100WBC ESR 40 H (0-15) MM/HR PT 16.0 H (10.0-13.1) SEC INR 1.4 H (0.9-1.1) APTT 33.1 (26.0-36.4) SEC D-Dimer High Sensitivty < 150 NG/ML Sodium (135-145) mmol/L Potassium (3.3-5.1) mmol/L Chloride (96-108) mmol/L Carbon Dioxide (22-29) mmol/L Anion Gap (12-20) BUN (9-16) mg/dL Creatinine (0.5-1.4) mg/dL Estim Creat Clear Calc Estimated GFR Random Glucose (60-115) mg/dL Lactic Acid (0.5-2.0) mmol/L Calcium (8.4-10.2) mg/dL Ferritin (20-250) ng/mL Total Bilirubin (0.0-1.0) mg/dL AST (5-37) U/L ALT (0-40) U/L Alkaline Phosphatase (39-117) U/L Lactate Dehydrogenase (118-273) U/L Total Creatine Kinase (38-174) U/L Troponin I High Sens (<3.5-35.0) ng/L C-Reactive Protein (< or = 0.50) mg/dL Total Protein (6.5-8.0) g/dL Albumin (3.5-5.0) g/dL 02/26/22 02/26/22 02/26/22 Range/Units 15:22 15:22 15:22 WBC (4.8-10.8) X10*3/uL RBC (4.60-5.80) X10*6/uL Hgb (14.0-18.0) g/dl Hct (42.0-52.0) % MCV (80.0-98.0) fL MCH (27.0-33.0) pg MCHC (31.0-36.0) g/dl RDW (11.0-16.0) % Plt Count (160-400) X10*3/uL MPV (9.4-12.4) fL Immature Gran % (Auto) (0.0-0.4) % Neut % (Auto) (45-73) % Lymph % (Auto) (20-40) % Bollinger % (Auto) (2-11) % Eos % (Auto) (0-4) % Baso % (Auto) (0-2) % Lymph # (Auto) (1.2-4.9) X10*3/uL Bollinger # (Auto) (0.1-1.2) X10*3/uL Eos # (Auto) (0.0-0.4) X10*3/uL Baso # (Auto) (0.0-0.2) X10*3/uL Abs Immat Gran (auto) (0.00-0.03) X10*3/uL Absolute Neuts (auto) (2.0-8.3) x10*3/uL Absolute Nucleated RBC (0.0-0.012) X10*3/uL Nucleated RBC % (auto) (0.0-0.2) /100WBC ESR (0-15) MM/HR PT (10.0-13.1) SEC INR (0.9-1.1) APTT (26.0-36.4) SEC D-Dimer High Sensitivty NG/ML Sodium 138 (135-145) mmol/L Potassium 5.2 H (3.3-5.1) mmol/L Chloride 103 (96-108) mmol/L Carbon Dioxide 26 (22-29) mmol/L Anion Gap 14 (12-20) BUN 19 H (9-16) mg/dL Creatinine 1.45 H (0.5-1.4) mg/dL Estim Creat Clear Calc 58.6 Estimated GFR 48 Random Glucose 99 (60-115) mg/dL Lactic Acid 0.7 (0.5-2.0) mmol/L Calcium 9.6 (8.4-10.2) mg/dL Ferritin (20-250) ng/mL Total Bilirubin 0.5 (0.0-1.0) mg/dL AST 21 (5-37) U/L ALT 27 (0-40) U/L Alkaline Phosphatase 54 (39-117) U/L Lactate Dehydrogenase (118-273) U/L Total Creatine Kinase 155 (38-174) U/L Troponin I High Sens 9.2 (<3.5-35.0) ng/L C-Reactive Protein 4.83 H (< or = 0.50) mg/dL Total Protein 6.9 (6.5-8.0) g/dL Albumin 4.0 (3.5-5.0) g/dL 02/26/ Range/Units 15:22 WBC (4.8-10.8) X10*3/uL RBC (4.60-5.80) X10*6/uL Hgb (14.0-18.0) g/dl Hct (42.0-52.0) % MCV (80.0-98.0) fL MCH (27.0-33.0) pg MCHC (31.0-36.0) g/dl RDW (11.0-16.0) % Plt Count (160-400) X10*3/uL MPV (9.4-12.4) fL Immature Gran % (Auto) (0.0-0.4) % Neut % (Auto) (45-73) % Lymph % (Auto) (20-40) % Bollinger % (Auto) (2-11) % Eos % (Auto) (0-4) % Baso % (Auto) (0-2) % Lymph # (Auto) (1.2-4.9) X10*3/uL Bollinger # (Auto) (0.1-1.2) X10*3/uL Eos # (Auto) (0.0-0.4) X10*3/uL Baso # (Auto) (0.0-0.2) X10*3/uL Abs Immat Gran (auto) (0.00-0.03) X10*3/uL Absolute Neuts (auto) (2.0-8.3) x10*3/uL Absolute Nucleated RBC (0.0-0.012) X10*3/uL Nucleated RBC % (auto) (0.0-0.2) /100WBC ESR (0-15) MM/HR PT (10.0-13.1) SEC INR (0.9-1.1) APTT (26.0-36.4) SEC D-Dimer High Sensitivty NG/ML Sodium (135-145) mmol/L Potassium (3.3-5.1) mmol/L Chloride (96-108) mmol/L Carbon Dioxide (22-29) mmol/L Anion Gap (12-20) BUN (9-16) mg/dL Creatinine (0.5-1.4) mg/dL Estim Creat Clear Calc Estimated GFR Random Glucose (60-115) mg/dL Lactic Acid (0.5-2.0) mmol/L Calcium (8.4-10.2) mg/dL Ferritin 304 H (20-250) ng/mL Total Bilirubin (0.0-1.0) mg/dL AST (5-37) U/L ALT (0-40) U/L Alkaline Phosphatase (39-117) U/L Lactate Dehydrogenase 198 (118-273) U/L Total Creatine Kinase (38-174) U/L Troponin I High Sens (<3.5-35.0) ng/L C-Reactive Protein (< or = 0.50) mg/dL Total Protein (6.5-8.0) g/dL Albumin (3.5-5.0) g/dL <Carlos Alberto Mustafa MD - Last Filed: 02/26/22 17:37> ECG Data Attestation: I personally reviewed and interpreted this ECG as follows: <Carlos Alberto Mustafa MD - Last Filed: 02/26/22 17:37> Interpretation: 1450: Sinus rhythm with a rate of 80, first-degree AV block with OH interval of 228 milliseconds, prolonged QRS duration of 130 milliseconds, prolonged QTC of 475 milliseconds, left bundle-branch block, no ST segment elevation or depression, no significant T-wave abnormalities. Compared to EKG dated 09/05/2014 there is no significant change. <Carlos Alberto Mustafa MD - Last Filed: 02/26/22 17:37> Discharge Plan Discharge Clinical Impression: Chest pain, pleuritic, COVID-19 virus infection <Cheryl Rosado CNP - Last Filed: 02/26/22 13:52> Patient Disposition: Home, Self-Care <Cheryl Rosado CNP - Last Filed: 02/26/22 13:52> Additional Instructions: Your blood work was unremarkable except for elevation of your inflammatory markers (ESR, CRP, ferritin) which is consistent with your COVID-19 infection Your chest x-ray did not reveal any pneumonia. The CT pulmonary angiogram did not reveal any blood clots in your lungs which is reassuring you do have some inflammation in your breathing tubes (bronchials) which is consistent with your COVID-19 infection. There was no evidence of pneumonia on the CT scan. Take Tylenol (acetaminophen) 500 mg pills, 2 pills every 4-6 hours as needed for pain. For pain not relieved Tylenol take oxycodone 5 mg pills, 1 pill every 4 hours as needed for pain. Do not drive or work while taking this medication since they can cause sleepiness. Oxycodone is a narcotic medication that can be addicting. If you are concerned about addiction you can ask the pharmacist for less pills or do not get this prescription filled. Use the albuterol inhaler with the spacer, 2 puffs every 4-6 hours as needed for shortness of breath and wheezing. Use the albuterol inhaler with spacer. Stop your other [id number] cough medications. Follow-up with your doctor in 2 days. Please return to the emergency department if your symptoms get worse or if you develop any symptoms that are concerning to you. <Cheryl Rosado CNP - Last Filed: 02/26/22 13:52> Prescriptions: New albuterol sulfate [ProAir HFA] 90 mcg/actuation HFA aerosol inhaler 2 puff inhalation Q4-6H PRN (Reason: shortness of breath or wheezing) Qty: 8.5 0RF oxycodone 5 mg tablet 5 mg PO Q4H PRN (Reason: pain) Qty: 14 0RF Rx Instructions: Patient may request partial fill; Partial Fill upon patient request. No Action propranolol 80 mg tablet 40 mg PO BID Xarelto 20 mg tablet 20 mg PO QPM Qty: 90 3RF Rx Instructions: must administer with evening meal montelukast 10 mg tablet 10 mg PO BEDTIME Qty: 90 0RF fluticasone propionate [Flonase Allergy Relief] 50 mcg/actuation spray,suspension 1 spray intranasal DAILY Rx Instructions: administer into each nostril allopurinol 300 mg tablet 300 mg PO DAILY clonazepam 0.5 mg tablet 0.5 mg PO BID PRN losartan 50 mg tablet 50 mg PO DAILY guaifenesin [Mucinex] 600 mg tablet extended release 12hr 600 mg PO BID PRN <Cheryl Rosado, WELFARE AIDE - Last Filed: 02/26/22 13:52>
--- NOTE | 2022-02-26 14:40 | ECG_ITS ---
Test Reason : CHEST PAIN Blood Pressure : / mmHG Vent. Rate : 080 BPM Atrial Rate : 080 BPM P-R Int : 228 ms QRS Dur : 138 ms QT Int : 412 ms P-R-T Axes : 006 -48 090 degrees QTc Int : 475 ms Sinus rhythm with 1st degree A-V block Left axis deviation Left bundle branch block Abnormal ECG When compared with ECG of 05-SEP-2014 20:50, Heart rate has increased Referred By: Carlos Alberto Mustafa Electronically Signed By:MARIN MONTES MD
[2022-02-26 15:30] LABS: MANUAL DIFF FLAG NO
[2022-02-26] MEDS: oxyCODONE HCl Immed Release 5 MG TABLET PO ×2 (15:31→17:34)
[2022-02-26] MEDS: Ketorolac Tromethamine 15 MG/ML VIAL IVPUSH (15:32)
[2022-02-26] MEDS: 0.9 % Sodium Chloride 1,000 ML 999 ML IV (15:32)
[2022-02-26 15:34] LABS: Basophils Percent Auto 0.4 % (0-2); Eosinophils Absolute Auto 0.4 X10*3/uL (0.0-0.4); Eosinophils Percent Auto 5.2 % (0-4); Imm Gran Abs Auto 0.05 X10*3/uL (0.00-0.03); Imm Gran Pct Auto 0.6 % (0.0-0.4); Lymphocytes Absolute Auto 1.4 X10*3/uL (1.2-4.9); Lymphocytes Percent Auto 17.2 % (20-40); Mean Corpuscular HGB Conc 33.3 g/dl (31.0-36.0); Mean Corpuscular Hemoglobin 28.1 pg (27.0-33.0); Mean Corpuscular Volume 84.4 fL (80.0-98.0); Mean Platelet Volume 9.2 fL (9.4-12.4); Monocytes Absolute Auto 0.9 X10*3/uL (0.1-1.2); Monocytes Percent Auto 11.9 % (2-11); Neutrophils Absolute Auto 5.1 x10*3/uL (2.0-8.3); Neutrophils Percent Auto 64.7 % (45-73); Platelet Count 217 X10*3/uL (160-400); Red Blood Count 5.33 X10*6/uL (4.60-5.80); Red Cell Distribution Width 12.9 % (11.0-16.0); White Blood Count 7.8 X10*3/uL (4.8-10.8)
[2022-02-26 15:43] LABS: INTERNATIONAL NORM RATIO 1.4 (0.9-1.1)
[2022-02-26 15:46] LABS: D Dimer High Sensitivity < 150 NG/ML; Partial Thromboplastin Time 33.1 SEC (26.0-36.4)
[2022-02-26 15:57] LABS: Lactic Acid 0.7 mmol/L (0.5-2.0)
[2022-02-26 16:02] LABS: Alanine Aminotransferase 27 U/L (0-40); Alkaline Phosphatase 54 U/L (39-117); Anion Gap 14 (12-20); Aspartate Amino Transferase 21 U/L (5-37); Bilirubin Total 0.5 mg/dL (0.0-1.0); Blood Urea Nitrogen 19 mg/dL (9-16); C Reactive Protein 4.83 mg/dL (< or = 0.50); Calcium 9.6 mg/dL (8.4-10.2); Carbon Dioxide 26 mmol/L (22-29); Chloride 103 mmol/L (96-108); Creatinine Clr Calc Pharmacy 58.6; Estimated Glomerular Filt Rate 48; Glucose Random 99 mg/dL (60-115); Potassium 5.2 mmol/L (3.3-5.1); Sodium 138 mmol/L (135-145); Total Protein 6.9 g/dL (6.5-8.0)
[2022-02-26 16:11] LABS: Troponin-I High Sensitivity 9.2 ng/L (<3.5-35.0)
[2022-02-26 16:26] LABS: Erythrocyte Sedimentation Rate 40 MM/HR (0-15)
[2022-02-26] MEDS: iohexoL 350 MG/ML 100 ML INFUS..BTL IV (16:27)
[2022-02-26 16:31] LABS: Ferritin 304 ng/mL (20-250); Lactate Dehydrogenase 198 U/L (118-273)
[2022-02-26] MEDS: Albuterol Sulfate 90 MCG 8 GM INHALER 4 PUFF INHALE (17:44)
[2022-02-26 17:49] VITALS: PULSE 81; RESP 18; O2SAT 98
== END 2022-02-26 17:55 | disposition home or self-care (01) ==
PROVIDERS: Emergency Provider Emergency Medicine Emergency Medical Services; PCP Family Medicine
DX: U07.1 COVID-19 (principal); R07.89 Other chest pain; I10 Essential (primary) hypertension; I48.91 Unspecified atrial fibrillation; Z79.01 Long term (current) use of anticoagulants; Z79.899 Other long term (current) drug therapy
CPT/HCPCS: 36415; 71046; 71275; 80053; 82550; 82728; 83605; 83615; 84484; 85025; 85379; 85610; 85652; 85730; 86140; 93005; 94640; 96361; 96374; 99284; 99285; J1885; Q9967

== ENCOUNTER → 2022-04-29 12:48 | Outpatient (BNVA) | payer BC, SELFPAY | PROVIDERS: PCP Family Medicine; Visit Provider Internal Medicine Cardiovascular Disease | DX: Z13.89 Encounter for screening for other disorder (principal) ==

== ENCOUNTER → 2022-09-07 09:48 | Outpatient (REF) | payer MEDICARE, SELFPAY ==
--- NOTE | 2022-09-07 09:53 | CA_ITS ---
Transthoracic Echocardiogram Patient (Last, First, Middle): Kevin Vaughn J Gender: Male Date of : 1955 Age: 66 Procedure Date: 09/07/2022 Procedure Type: Transthoracic Echocardiogram Location: OP Height: 180.34 cm Weight: 92.99 kg BSA: 2.13 m2 Heart Rate: 66 bpm BP: 128 / 70 mmHg Childcare [facility] Director: SB Referring MD: Tyson Fragoso MD Symptoms: I44.7 - Left bundle-branch block, unspecified Study Quality: Adequate w contrast ECG Rhythm: Sinus Conclusions: - The left ventricular systolic function is normal. The calculated ejection fraction is 64% by biplane method. - There is moderate septal asymmetric hypertrophy. - There is mild calcification of the aortic valve. - There is mild mitral annular calcification. Findings Procedure Information Contrast agent, definity, is being given per protocol without apparent complications. Left Ventricle Normal left ventricular cavity size. The left ventricular systolic function is normal. The calculated ejection fraction is 64% by biplane method. There is no evidence of regional wall motion abnormalities. There is paradoxical septal motion consistent with a left bundle branch block. E/E prime ratio is between 8 and 15 consistent with indeterminate filling pressures. Evidence suggests grade I (mild) diastolic dysfunction. There is moderate septal asymmetric hypertrophy. Right Ventricle Normal right ventricular cavity size and systolic function. Atria Both atria are normal in size. Aortic Valve There is a normal trileaflet aortic valve. There is mild calcification of the aortic valve. There is no aortic valve stenosis. There is no aortic valve regurgitation. Mitral Valve There is mild mitral annular calcification. There is trace mitral valve regurgitation. There is no mitral valve stenosis. Pulmonic Valve The pulmonic valve is likely normal. Tricuspid Valve There is mild tricuspid valve regurgitation. There is no evidence of pulmonary hypertension. Great Vessels The asc aorta is normal in size. Venous The inferior vena cava is normal in size and collapses less than 50% with inspiration. Pericardium/Pleural There is no evidence of pericardial effusion. Prior Study Comparison No significant change compared to prior study dated: 04/29/2020. Measurements 2D Linear Measurements IVSd: 1.30 0.6-0.9/0.6-1.0 cm LVIDd: 4.51 3.9-5.3/4.2-5.9 cm LVIDd Index: 2.12 2.4-3.2/2.2-3.1 cm/m2 LVIDs: 3.11 2.0-3.6 cm LVPWd: 0.75 0.7-1.1 cm LA Diam: 4.30 2.7-3.8/3.0-4.0 cm LAIDs Index: 2.02 1.5-2.3 cm/m2 LV Mass: 198.73 67-162/88-224 g LV Mass Index: 93.30 43-95/49-115 g/m2 LVOT Diam: 2.40 3.0+(-)1.3 cm 2D Systolic Function EF 4C: 62.60 >55% EF 2C: 62.00 >55% EF BiP: 63.70 >55% Mitral Valve MV Pk E: 0.85 MV PK A: 0.89 MV Decel Time: 212.00 E/A: 1.00 E'Lateral: 6.64 E'Medial: 5.00 E/E' Med: 16.90 E/E' Lat: 12.70 PHT: 62.00 MVA PHT: 3.55 Decel [place]: 3.99 Aortic Valve AoV Pk Anibal: 1.06 AoV Pk Grad: 4.00 CHIARA: 3.57 LVOT LVOT Pk Anibal: 0.80 LVOT Mn Anibal: 0.57 LVOT VTI: 0.17 LVOT Pk Grad: 3.00 LVOT Mn Grad: 1.00 LVOT Diam: 2.40 LVOT Area: 4.52 Diastolic Function MV Pk E: 0.85 MV Pk A: 0.89 E/A: 1.00 E'Medial: 5.00 E/E' Med: 16.90 E' Laterial: 6.64 E/E' Lat: 12.70 Right Ventricle TAPSE (mm): 20.90 TVS' Anibal: 10.80 Tricuspid Valve TR Pk Anibal: 2.13 TR Pk Grad: 18.00 RA Press: 8.00 RVSP: 26.00 Great Vessels Aorta Sinus of Valsalva: 3.90 2.0-3.5 cm Ao Asc: 3.70 2.1-3.4 cm Pulmonary Valve PV Pk Anibal: 0.99 Peak PV Grad: 4.00 Updated in Other Vendor System with Status of Final Kanu Holman MD electronically signed on 09/08/2022 12:31:29 PM with status of Final
== END ==
LOC: HO.CARD 09:48
PROVIDERS: Visit Provider Internal Medicine Cardiovascular Disease
DX: I44.7 Left bundle-branch block, unspecified (principal)
CPT/HCPCS: 93306; Q9957

== ENCOUNTER 2022-09-09 09:39 | Outpatient (REF) | payer MEDICARE, SELFPAY ==
--- NOTE | ~2022-09-09 | XR_ITS ---
EXAMINATION: XR CHEST CLINICAL INFORMATION: Cough COMPARISON: Previous chest x-ray February 2022 TECHNIQUE: 2 views of the chest were obtained. FINDINGS: The cardiac and mediastinal contours are stable. The lungs are clear. No pleural effusion or pneumothorax. Degenerative changes of the spine. XR/XR chest 2V IMPRESSION: Unremarkable examination.
== END 2022-09-09 09:40 | disposition home or self-care (01) ==
LOC: HO.XRAY 09:39
PROVIDERS: PCP Family Medicine; Visit Provider Internal Medicine
DX: J40 Bronchitis, not specified as acute or chronic (principal); R05.9 Cough, unspecified; J98.01 Acute bronchospasm; J30.9 Allergic rhinitis, unspecified
CPT/HCPCS: 71046; 99212

== ENCOUNTER 2023-01-15 23:51 | Inpatient (IN) | payer MEDICARE, SELFPAY ==
--- NOTE | ~2023-01-15 | CT_ITS ---
EXAMINATION: CT ABDOMEN AND PELVIS WITHOUT AND WITH CONTRAST [CT UROGRAM] CLINICAL INFORMATION: Gross hematuria. Evaluate for kidney stone versus malignancy. COMPARISON: None. TECHNIQUE: Multidetector volumetric imaging was performed from the superior aspect of the liver through the pubic symphysis before and after the administration of 85 mL Omnipaque 350 intravenous contrast. Postcontrast images were acquired utilizing split bolus technique during the nephrographic and urographic phases. Sagittal and coronal reformatted images were obtained on the technologist workstation. This CT examination was performed using dose optimization techniques as appropriate, variously including the following: *Automated exposure control *Adjustment of mA and/or kV according to patient size (this includes techniques or standardized protocols for targeted exams where dose is matched to indication/reason for exam; i.e. extremities or head) *Use of iterative reconstruction technique DLP: 1178 mGy-cm FINDINGS: IMAGED THORAX: The visualized lung bases are unremarkable. GENITOURINARY: The kidneys are normal in size, axis, morphology and parenchymal attenuation with symmetric uptake and excretion of contrast bilaterally. No hydronephrosis, hydroureter or perinephric abnormality. No filling defects within the renal pelves, ureters or bladder. No urinary calculi. There are a few bilateral subcentimeter renal cysts which are benign. No follow-up imaging recommended. No suspicious renal cyst or mass. Ureters are normal in course and caliber. Bladder is decompressed by Van catheter. On the unenhanced images, there is layering hyperdensity compatible with blood/blood clot. Expected small gas within the bladder in the setting of catheterization. Prostate is mildly enlarged measuring up to 5.5 cm transversely. Seminal vesicles unremarkable. LIVER, GALLBLADDER, AND BILIARY TREE: The liver is normal in size, shape, and attenuation. No focal hepatic lesion or biliary ductal dilatation is present. The gallbladder is unremarkable with no evidence of radiopaque gallstones, gallbladder wall thickening, or obvious pericholecystic inflammatory changes. PANCREAS: Unremarkable. SPLEEN: Unremarkable. ADRENAL GLANDS: Unremarkable. GASTROINTESTINAL TRACT: The small and large bowel are unremarkable. The appendix is unremarkable. ABDOMINAL WALL: Small fat-containing umbilical hernia. Small bilateral fat-containing direct inguinal hernias. LYMPH NODES: Normal. VASCULAR: Aorta is atherosclerotic but normal caliber. Patent vascular structures. OSSEOUS STRUCTURES: No acute or suspicious osseous abnormalities. Intact left total hip arthroplasty. CT/CT abdomen pelvis wo/w IV con IMPRESSION: * No etiology for the patient's hematuria is identified within the kidneys, ureters or bladder. No urinary calculi. * Hematocrit level within the bladder in keeping with the provided history of gross hematuria, the source of which is unclear from an anatomic imaging standpoint. * Mild prostatomegaly.
[2023-01-16] VITALS (10 sets, daily range): BP systolic 132–177; BP diastolic 72–105; PULSE 57–79; RESP 16–18; TEMP 36.1–36.9; O2SAT 95–98; BMI 30.3
--- NOTE | 2023-01-16 02:24 | ED.MALEGU ---
HPI - Male Genitourinary General Chief complaint: Urogenital-Male Stated complaint: Urinated blood, now not urinating Time Seen by Provider: 01/16/23 02:15 Source: patient and other (Girlfriend) Mode of arrival: ambulatory Limitations: no limitations History of Present Illness HPI Narrative: 67-year-old male who presents emergency department for evaluation of hematuria and bladder distension. Patient states that approximately 1.5 days prior to coming to the emergency department he developed hematuria. He states that it then resolved but today the hematuria returned. He states that over the last several hours he has had no urine output knee feels like his bladder is distended. Patient states that he has had hematuria in the past. Patient has also had BPH and states that he had a laser procedure for this condition. Patient was weed whacking today he states that he did fall off a rock wall but landed on his hands to, he did not hit his head or his abdomen when he fell. He states Related Data Home Medications Medication Instructions Recorded Confirmed allopurinol 300 mg tablet 300 mg PO DAILY 04/08/20 04/29/22 clonazepam 0.5 mg tablet 0.5 mg PO BID PRN 04/08/20 04/29/22 propranolol 80 mg tablet 40 mg PO ONCE 04/29/22 04/29/22 losartan 50 mg tablet 100 mg PO DAILY 09/09/22 Previous Rx's Medication Instructions Recorded montelukast 10 mg tablet 10 mg PO BEDTIME for asthma #90 03/25/22 tabs azithromycin 250 mg tablet See Rx Instructions PO .COMPLEX #6 09/10/22 tabs prednisone 20 mg tablet 40 mg (2 x 20 mg) PO DAILY 5 days 09/10/22 #10 tabs apixaban 5 mg tablet (Eliquis) 5 mg PO BID 90 days #180 tabs 09/16/22 cefuroxime axetil 250 mg tablet 250 mg PO Q12H 7 days #14 tabs 01/16/23 Allergies Allergy/AdvReac Type Severity Reaction Status Date / Time No Known Drug Allergies Allergy Unknown NONE Verified 01/16/23 02:18 Review of Systems Review of Systems: Yes all other systems are reviewed and are negative [facility] Past Medical History [facility] Narrative: Social history: He denies tobacco use. He drinks alcohol 2 times a week. He denies drug use. Medical History Bronchitis Cough Cough due to bronchospasm Allergic rhinitis Paroxysmal atrial fibrillation LBBB (left bundle branch block) HTN (hypertension) Surgical History History of knee surgery History of hip surgery Family History Family History Father Myocardial infarction Mother Diabetes Social History Social History Alcohol intake: current Alcohol intake frequency: holidays/special occasions only Alcohol type: beer Patient Tobacco Use Status: Never used Tobacco Smoked in Last 30 Days: No Use of substances other than those prescribed or required for medical reasons: No Advance Directives: No Advance Directives Information Provided: Yes Physical Exam Vital Signs: Vital Signs: Last Vital Signs Temp 98.5 F 01/16/23 02:26 Pulse 76 01/16/23 02:26 Resp 16 01/16/23 02:26 BP 154/79 H 01/16/23 02:35 Pulse Ox 97 01/16/23 02:26 O2 Del Method Room Air 01/16/23 02:26 BMI result Body Mass Index 30.3 Medications Administered Discontinued Medications Generic Name Dose Route Start Last Admin Trade Name Freq PRN Reason Stop Dose Admin Iohexol 85 ml 01/16/23 04:00 01/16/23 04:01 Iohexol 350 Mg/Ml 100 Ml Infus..Btl IV 01/16/23 04:01 85 ml ONCE ONE Administration Lidocaine HCl 10 ml 01/16/23 02:25 01/16/23 02:31 Lidocaine Hcl 2 % Urojet 10 Ml Jel.Pf.Rafal TOPICAL 01/16/23 02:26 10 ml ONCE ONE Administration Morphine Sulfate 4 mg 01/16/23 03:04 01/16/23 03:58 Morphine Sulfate 4 Mg/Ml Cartridge IVPUSH 01/16/23 03:05 4 mg ONCE STA Administration Protocol Ondansetron HCl 4 mg 01/16/23 03:04 01/16/23 03:58 Ondansetron Hcl 4 Mg/2 Ml Vial IVPUSH 01/16/23 03:05 4 mg ONCE ONE Administration Medical Decision Making Medical Decision Making MDM Narrative: 67-year-old male who presents emergency department for evaluation hematuria times her in several days and inability urinate times several hours. Patient is on Eliquis for his atrial fibrillation. The patient did have a fall today however he did not hit his head or abdomen and the hematuria proceeded to fall. The patient's vital signs revealed an elevated blood pressure of 170/96 otherwise unremarkable. Examination did reveal a distended bladder with tenderness with palpation of the bladder. Bladder scan revealed over 300 cc of urine in the bladder. I ordered a CBC, CMP, urinalysis, PT INR, PTT, Urojet, 3 way Van catheterization with bladder irrigation, CT scan abdomen pelvis with and without IV contrast to look for source of bleeding,. 17:39 Patient's laboratory evaluation revealed a normal H&H, slight elevation in BUN with normal creatinine. Patient may have a urinary tract infection but I am not certain if this is the cause of his gross hematuria. Patient will be treated with cefuroxime 250 mg q.[address] kidney ureter bladder with IV contrast did not reveal a clear cause for the patient's bleeding. Patient had continual bladder irrigation with 3 to L bags of fluid and his urine still has some blood in it however significantly less. Therefore the patient will be discharged home with the Van catheter in place. Differential Diagnosis Differential Diagnoses: The differential diagnosis associated with the presentation includes Differential diagnosis includes was not limited to kidney stone, pyelonephritis, renal malignancy, bladder malignancy, bleeding secondary to Eliquis Admission/Observation Consideration of admission/observation: Escalation of care including admission/observation considered Lab Data [facility] Lab Attestation statement: I reviewed the patient's lab results. My interpretation patient's laboratory evaluation is as follows H&H was normal at 13 and 40.7. BUN was elevated 27 with normal creatinine of 1.27. And urinalysis positive for blood, leukocyte esterase and nitrates. Microscopic revealed greater than 20 RBCs, 20 WBCs trace bacteria. PT/INR normal. PTT normal. 01/16/23 02:30 01/16/23 02:31 Labs: Lab Results 01/16/23 01/16/23 01/16/23 Range/Units 02:21 02:30 02:31 WBC 7.2 (4.8-10.8) X10*3/uL RBC 4.82 (4.60-5.80) X10*6/uL Hgb 13.7 L (14.0-18.0) g/dl Hct 40.7 L (42.0-52.0) % MCV 84.4 (80.0-98.0) fL MCH 28.4 (27.0-33.0) pg MCHC 33.7 (31.0-36.0) g/dl RDW 13.8 (11.0-16.0) % Plt Count 173 (160-400) X10*3/uL MPV 8.8 L (9.4-12.4) fL Immature Gran % (Auto) 0.4 (0.0-0.4) % Neut % (Auto) 62.9 (45-73) % Lymph % (Auto) 20.3 (20-40) % [place] % (Auto) 12.3 H (2-11) % Eos % (Auto) 3.5 (0-4) % Baso % (Auto) 0.6 (0-2) % Lymph # (Auto) 1.5 (1.2-4.9) X10*3/uL [place] # (Auto) 0.9 (0.1-1.2) X10*3/uL Eos # (Auto) 0.3 (0.0-0.4) X10*3/uL Baso # (Auto) 0.0 (0.0-0.2) X10*3/uL Abs Immat Gran (auto) 0.03 (0.00-0.03) X10*3/uL Absolute Neuts (auto) 4.6 (2.0-8.3) x10*3/uL Absolute Nucleated RBC 0.000 (0.0-0.012) X10*3/uL Nucleated RBC % (auto) 0.0 (0.0-0.2) /100WBC PT 12.7 (11.1-13.3) SEC INR 1.0 (0.9-1.1) APTT 32.5 (26.0-36.4) SEC Sodium 140 (135-145) mmol/L Potassium 4.4 (3.3-5.1) mmol/L Chloride 108 (96-108) mmol/L Carbon Dioxide 17 L (22-29) mmol/L Anion Gap 19 (12-20) BUN 27 H (9-16) mg/dL Creatinine 1.25 (0.5-1.4) mg/dL Estim Creat Clear Calc 66.7 Estimated GFR 57 Random Glucose 110 (60-115) mg/dL Calcium 10.1 (8.4-10.2) mg/dL Total Bilirubin 0.3 (0.0-1.0) mg/dL AST 28 (5-37) U/L ALT 27 (0-40) U/L Alkaline Phosphatase 50 (39-117) U/L Total Protein 7.5 (6.5-8.0) g/dL Albumin 4.3 (3.5-5.0) g/dL Urine Color RED Urine Appearance Cloudy Urine pH 7.0 (5.0-9.0) Ur Specific [place] 1.020 (1.005-1.025) Urine Protein 300 (3+) H (Neg-Trace) mg/dL Urine Glucose (UA) Negative (Negative) mg/dL Urine Ketones 15 (Negative) mg/dL Urine Blood Large (3+) H (Negative) Urine Nitrite Positive H (Negative) Ur Leukocyte Esterase Small (1+) H (Negative) Urine RBC >20 H (0-2) /HPF Urine WBC 11-20 (0-5) /HPF Ur Squamous Epith Cells 3-5 (0-2) /HPF Urine Bacteria Trace (None Seen) Hyaline Casts 0-2 (0-2) /LPF Radiology Impression Discussion of test interpretation with radiology: I have reviewed the radiologist's reading. Radiologist Impression: CT abdomen pelvis wo/w IV con IMPRESSION: * No etiology for the patient's hematuria is identified within the kidneys, ureters or bladder. No urinary calculi. * Hematocrit level within the bladder in keeping with the provided history of gross hematuria, the source of which is unclear from an anatomic imaging standpoint. * Mild prostatomegaly. Dictated By: Calos Berger MD Independent Historian Clinical information obtained from an independent historian. History obtained from or confirmed by: Other (Significant other) Chronic Conditions Patient?s care impacted by: Hypertension Discharge Plan Discharge Clinical Impression: Gross hematuria, Anticoagulation therapy continued upon discharge Urinary tract infection Qualifiers: Urinary tract infection type: acute cystitis Patient Disposition: Home, Self-Care Instructions: Urinary Tract Infection in Men (ED), Van Catheter Placement and Care (ED), Hematuria (ED) Additional Instructions: Your blood work was unremarkable. Your urine did reveal red blood cells, white blood cells and trace bacteria-I am going to treat you for urinary tract infection with cefuroxime 250 mg, 1 pill every 12 hours for [address] scan of your abdomen pelvis looking at your kidneys, ureter and bladder did not reveal a clear cause for your bleeding. I am sending you home with a 3 way Van catheter in place. If you feel like the catheter is not draining or if your bladder is getting distended then you should return to the emergency department for re-evaluation. Call our urologist office on Tuesday morning for follow-up within 2-3 days for re-evaluation. Prescriptions: New cefuroxime axetil 250 mg tablet 250 mg PO Q12H 7 Days Qty: 14 0RF No Action montelukast 10 mg tablet 10 mg PO BEDTIME Qty: 90 0RF propranolol 80 mg tablet 40 mg PO ONCE prednisone 20 mg tablet 40 mg PO DAILY 5 Days Qty: 10 0RF azithromycin 250 mg tablet See Rx Instructions PO .COMPLEX Qty: 6 0RF Rx Instructions: For 250 mg dose pack: take 500 mg today (day 1), then 250 mg for 4 days (days 2-5) PO Eliquis 5 mg tablet 5 mg PO BID 90 Days Qty: 180 3RF allopurinol 300 mg tablet 300 mg PO DAILY clonazepam 0.5 mg tablet 0.5 mg PO BID PRN losartan 50 mg tablet 100 mg PO DAILY Referrals: Catina Bradshaw MD [Physician] - 5 days (Gross hematuria, bladder irrigation in the ER, discharged with 3 way Van, possible UTI-cefuroxime, CT kidney urinary bladder IV contrast no clear cause for bleeding, patient is on Eliquis)
[2023-01-16] MEDS: Lidocaine HCl 2 % Urojet 10 ML JEL.PF.APP TOPICAL (02:31)
[2023-01-16 02:35] LABS: MANUAL DIFF FLAG NO
[2023-01-16 02:36] LABS: Appearance Urine Cloudy; Color Urine RED; Glucose Urine UA Negative (Negative); Leukocyte Esterase Urine Small (1+) (Negative); Nitrite Urine Positive (Negative); UMIC TRIGGER UACC YES; Urine Blood Large (3+) (Negative); Urine Ketones 15 mg/dL (Negative); Urine Protein 300 (3+) mg/dL (Neg-Trace)
[2023-01-16 02:37] LABS: Basophils Percent Auto 0.6 % (0-2); Eosinophils Absolute Auto 0.3 X10*3/uL (0.0-0.4); Eosinophils Percent Auto 3.5 % (0-4); Hematocrit 40.7 % (42.0-52.0); Hemoglobin 13.7 g/dl (14.0-18.0); Imm Gran Abs Auto 0.03 X10*3/uL (0.00-0.03); Imm Gran Pct Auto 0.4 % (0.0-0.4); Lymphocytes Absolute Auto 1.5 X10*3/uL (1.2-4.9); Lymphocytes Percent Auto 20.3 % (20-40); Mean Corpuscular HGB Conc 33.7 g/dl (31.0-36.0); Mean Corpuscular Hemoglobin 28.4 pg (27.0-33.0); Mean Corpuscular Volume 84.4 fL (80.0-98.0); Mean Platelet Volume 8.8 fL (9.4-12.4); Monocytes Absolute Auto 0.9 X10*3/uL (0.1-1.2); Monocytes Percent Auto 12.3 % (2-11); Neutrophils Absolute Auto 4.6 x10*3/uL (2.0-8.3); Neutrophils Percent Auto 62.9 % (45-73); Platelet Count 173 X10*3/uL (160-400); Red Blood Count 4.82 X10*6/uL (4.60-5.80); Red Cell Distribution Width 13.8 % (11.0-16.0); White Blood Count 7.2 X10*3/uL (4.8-10.8)
[2023-01-16 02:46] LABS: Prothrombin Time 12.7 SEC (11.1-13.3)
[2023-01-16 02:49] LABS: Partial Thromboplastin Time 32.5 SEC (26.0-36.4)
[2023-01-16 02:50] LABS: Bacteria Urine Trace (None Seen); Hyaline Casts Urine 0-2 /LPF (0-2); RBC Urine >20 /HPF (0-2); UACC Culture Trigger YES
[2023-01-16 02:51] LABS: Alanine Aminotransferase 27 U/L (0-40); Albumin Level 4.3 g/dL (3.5-5.0); Alkaline Phosphatase 50 U/L (39-117); Anion Gap 19 (12-20); Aspartate Amino Transferase 28 U/L (5-37); Bilirubin Total 0.3 mg/dL (0.0-1.0); Blood Urea Nitrogen 27 mg/dL (9-16); Calcium 10.1 mg/dL (8.4-10.2); Carbon Dioxide 17 mmol/L (22-29); Chloride 108 mmol/L (96-108); Creatinine Clr Calc Pharmacy 66.7; Estimated Glomerular Filt Rate 57; Glucose Random 110 mg/dL (60-115); Potassium 4.4 mmol/L (3.3-5.1); Sodium 140 mmol/L (135-145); Total Protein 7.5 g/dL (6.5-8.0)
--- NOTE | 2023-01-16 02:55 | PC.NURSE ---
Addendum entered by Carlota Jason 01/16/23 03:26: 22G mccauley, no clots noted. Original Note: Pt ambulated to room with a steady gait, Pt found getting into bed and had an incontinent episode, with bloody urine on the floor, pt is reporting 8/10 pain with blood in his urine, and difficulty urinating, with gradually having increased blood in urine x 2wks. Pt reports being on eliquis for A-fib. Bladder scan >304, IV line placed labs drawn and sent to lab, Medicated per JUN, Continuos bladder irrigation initiated, pt tolerated well, 200ml of dark bloody urine on initial drainage. Pt resting quietly, and aware of plan
--- NOTE | 2023-01-16 03:24 | PC.NURSE ---
CBI continuos to drain light red fluid. Pt brought over to CT scan.
[2023-01-16] MEDS: Morphine Sulfate 4 MG/ML CARTRIDGE IVPUSH ×4 (03:58→20:32)
[2023-01-16] MEDS: ondansetron HCL 4 MG/2 ML VIAL IVPUSH (03:58)
[2023-01-16] MEDS: iohexoL 350 MG/ML 100 ML INFUS..BTL 85 ML IV (04:01)
--- NOTE | 2023-01-16 06:08 | PC.NURSE ---
Amount instilled 9000 mL, output [id number]. Draining light pink, Pt tolerating well.
--- NOTE | 2023-01-16 06:36 | PC.NURSE ---
Pt reporting pressure and uncomfortable, catheter draining bright red urine, provider made aware. CBI restarted.
[2023-01-16] MEDS: cefTRIAXone sodium 1 GM in 0.9 % Sodium Chloride 50 ML IV (06:46)
--- NOTE | 2023-01-16 09:13 | P.HPHOSP_ITS ---
History of Present Illness Date of Service: 01/16/23 Chief Complaint: hematuria 67M PMH mild intermittent asthma, paroxysmal afib on eliquis, htn, gout, bph, presented with hematuria. patient complaining of 1-2 days hematuria, bladder distension and pain, urinary retention. history of bph s/p laser. had mccauley placed with 300cc residual. ua positive for pyuria, nitrites, trace bacteria, rbcs. started on cbi, given rocephin. Review of Systems 2 Review of Systems: Yes all other systems are reviewed and are negative [facility] Medical History Bronchitis Cough Cough due to bronchospasm Allergic rhinitis Paroxysmal atrial fibrillation LBBB (left bundle branch block) HTN (hypertension) Family History Father Myocardial infarction Mother Diabetes Surgical History History of knee surgery History of hip surgery Social History Alcohol intake: current Alcohol intake frequency: holidays/special occasions only Alcohol type: beer Patient Tobacco Use Status: Never used Tobacco Smoked in Last 30 Days: No Use of substances other than those prescribed or required for medical reasons: No Advance Directives: No Advance Directives Information Provided: Yes Meds Allergies Allergy/AdvReac Type Severity Reaction Status Date / Time No Known Drug Allergies Allergy Unknown NONE Verified 01/16/23 02:18 Active Medications: Current Medications Ceftriaxone Sodium 1 gm/ (Sodium Chloride) 50 mls @ 100 mls/hr IV Q24H [facility] Sodium Chloride (0.9 % Sodium Chloride Flush 3 Ml Syringe) 3 ml [facility] Home Medications Medication Instructions Recorded Confirmed Last Taken Type allopurinol 300 mg tablet 300 mg PO DAILY 04/08/20 04/29/22 Unknown History clonazepam 0.5 mg tablet 0.5 mg PO BID PRN 04/08/20 04/29/22 Unknown History propranolol 80 mg tablet 40 mg PO ONCE 04/29/22 04/29/22 Unknown History losartan 50 mg tablet 100 mg PO DAILY 09/09/22 Unknown History Physical Exam 2 Vital Signs and Narrative: Vital Signs: Last Vital Signs Temp 98.5 F 01/16/23 02:26 Pulse 57 01/16/23 08:05 Resp 18 01/16/23 08:05 BP 172/97 H 01/16/23 08:05 Pulse Ox 98 01/16/23 08:05 O2 Del Method Room Air 01/16/23 08:05 BMI result Body Mass Index 30.3 General: AO X 3, no acute distress Resp: CTA bilateral, no accessory muscles used CVS: S1,S2,RRR GI: soft, non tender, non distended Neuro: motor grossly intact, alert Psych: appropriate affect, appropriate insight Results Labs 01/16/23 02:30 01/16/23 02:31 Labs: Laboratory Results - last 24 hr 01/16/23 01/16/23 01/16/23 02:21 02:30 02:31 MCV 84.4 MCH 28.4 MCHC 33.7 RDW 13.8 Plt Count 173 MPV 8.8 L Immature Gran % (Auto) 0.4 Neut % (Auto) 62.9 Lymph % (Auto) 20.3 [place] % (Auto) 12.3 H Eos % (Auto) 3.5 Baso % (Auto) 0.6 Lymph # (Auto) 1.5 [place] # (Auto) 0.9 Eos # (Auto) 0.3 Baso # (Auto) 0.0 Abs Immat Gran (auto) 0.03 Absolute Neuts (auto) 4.6 Absolute Nucleated RBC 0.000 Nucleated RBC % (auto) 0.0 PT 12.7 INR 1.0 APTT 32.5 Anion Gap 19 Estim Creat Clear Calc 66.7 Estimated GFR 57 Random Glucose 110 Calcium 10.1 Total Bilirubin 0.3 AST 28 ALT 27 Alkaline Phosphatase 50 Total Protein 7.5 Albumin 4.3 Urine Color RED Urine Appearance Cloudy Urine pH 7.0 Ur Specific [place] 1.020 Urine Protein 300 (3+) H Urine Glucose (UA) Negative Urine Ketones 15 Urine Blood Large (3+) H Urine Nitrite Positive H Ur Leukocyte Esterase Small (1+) H Urine RBC >20 H Urine WBC 11-20 Ur Squamous Epith Cells 3-5 Urine Bacteria Trace Hyaline Casts 0-2 Imaging Radiologist's Impressions: Impressions Abdomen/Pelvis CT 01/16/23 03:45 IMPRESSION: * No etiology for the patient's hematuria is identified within the kidneys, ureters or bladder. No urinary calculi. * Hematocrit level within the bladder in keeping with the provided history of gross hematuria, the source of which is unclear from an anatomic imaging standpoint. * Mild prostatomegaly. Assessment and Plan (1) Acute urinary retention: Status: Acute Plan 67M PMH mild intermittent asthma, paroxysmal afib on eliquis, htn, gout, bph, presented with hematuria and urinary retention acute uti complicated by hematuria and urinary retention cbi, rocephin, gu eval, hold eliquis, follow up cultures Paroxysmal atrial fibrillation Continue propanolol, hold Eliquis Mild intermittent asthma Stable Gout Allopurinol Hypertension Losartan DVT prophylaxis-mechanical due to hematuria Full code Patient with significant hematuria requiring CBI, likely to require at least 2 midnights inpatient due to recent use of anticoagulants. Time Spent With Patient Time: Total time managing care of this patient today ____ minutes. Quality Stroke Does the patient have a stroke diagnosis?: No VTE Prior VTE?: No VTE Risk Level:: Medical - moderate - high VTE Device Contraindication: N/A - Device Ordered VTE Drug Contraindication: Treatment Not Tolerated
--- NOTE | 2023-01-16 10:47 | PC.NURSE ---
approx 9,000 cc not documented on output for CBI, bladder scanned pt to assure pt is not retaining fluid. bladder scan showed 152 cc in bladder.
--- NOTE | 2023-01-16 11:40 | PHA.MEDREC ---
Pharmacy Consult ? Medication Reconciliation Pharmacy has completed the medication reconciliation. spoke with patient to confirm medications. He reports rarely using the clonazepam and reserves it for travel, other than that he uses it every few months. He reports finishing a course of amoxicillin about 2 days ago for dental reasons. He also reports taking combination anti-inflammatory supplements but he cannot remember the ingredients.
--- NOTE | 2023-01-16 13:47 | P.CNUR_ITS ---
History of Present Illness Consult details Consult date: 01/16/23 Narrative: Kevin is a 67 male history of bph s/p laser; PMH mild intermittent asthma, paroxysmal afib on eliquis, htn, gout, bph, presented with hematuria. patient complaining of hematuria started a few days ago, yesterday he had difficulty urinating, bladder distension and pain, urinary retention. Mccauley placed in ED with 300cc residual. CBI started. UA positive for pyuria, nitrites, trace bacteria, rbcs. Received 1 dose IV rocephin. [facility] Past Medical History Medical History Bronchitis Cough Cough due to bronchospasm Allergic rhinitis Paroxysmal atrial fibrillation LBBB (left bundle branch block) HTN (hypertension) Family History Family History Father Myocardial infarction Mother Diabetes Surgical History Surgical History History of knee surgery History of hip surgery Social History Social History Alcohol intake: current Alcohol intake frequency: holidays/special occasions only Alcohol type: beer Patient Tobacco Use Status: Never used Tobacco Smoked in Last 30 Days: No Use of substances other than those prescribed or required for medical reasons: No Advance Directives: No Advance Directives Information Provided: Yes Nutrition Risks: No Nutritional Risk Meds Allergies Allergy/AdvReac Type Severity Reaction Status Date / Time No Known Drug Allergies Allergy Unknown NONE Verified 01/16/23 02:18 Active Medications: Current Medications Ceftriaxone Sodium 1 gm/ (Sodium Chloride) 50 mls @ 100 mls/hr IV Q24H ON LICENSE OF [facility] Sodium Chloride (0.9 % Sodium Chloride Flush 3 Ml Syringe) 3 ml IVFLUSH QSHIFT ON LICENSE OF [facility] Home Medications Medication Instructions Recorded Confirmed Last Taken Type allopurinol 300 mg tablet 300 mg PO DAILY 04/08/20 01/16/23 Unknown History clonazepam 0.5 mg tablet 0.5 mg PO DAILY PRN Anxiety 04/08/20 01/16/23 Unknown History propranolol 80 mg tablet 80 mg PO BID 04/29/22 01/16/23 Unknown History losartan 50 mg tablet 100 mg PO DAILY 09/09/22 01/16/23 Unknown History acetaminophen 500 mg tablet 1,000 mg PO Q6H PRN Pain 01/16/23 01/16/23 Unknown History ascorbic acid (vitamin C) 500 mg 1,000 mg PO DAILY 01/16/23 01/16/23 Unknown History chewable tablet (Vitamin C) melatonin 5 mg tablet 5 mg PO BEDTIME 01/16/23 01/16/23 Unknown History Physical Exam 2 Vital Signs: Vital Signs: Last Vital Signs Temp 98.5 F 01/16/23 02:26 Pulse 59 01/16/23 12:10 Resp 16 01/16/23 12:10 BP 177/105 H 01/16/23 12:10 Pulse Ox 97 01/16/23 12:10 O2 Del Method Room Air 01/16/23 12:10 BMI result Body Mass Index 30.3 Const: General: healthy appearing, no acute distress and well developed O rientation/consciousness: patient oriented x3 HEENT: Head: Yes normocephalic and Yes atraumatic Eyes: Conjunctivae: conjunctivae normal Neck: Neck: Yes normal visual inspection Chest: Chest palpation & inspection: normal inspection of the chest Resp: Effort & Inspection: normal respiratory effort Cardio: Rate: regular rate GI: Inspection: Yes normal to inspection Palpation (GI): Soft to palpation : Other: mccauley in place Penis: normal penis Scrotum: scrotum normal Skin: General skin exam: no rashes or lesions noted Neuro: General: patient oriented x3 Extrem: General: No pedal edema Psych: Appearance: grossly normal Affect: normal affect Results Labs 01/16/23 02:30 01/16/23 02:31 Labs: Abnormal lab results 01/16/23 01/16/23 01/16/23 Range/Units 02:21 02:30 02:31 Hgb 13.7 L (14.0-18.0) g/dl Hct 40.7 L (42.0-52.0) % MPV 8.8 L (9.4-12.4) fL [place] % (Auto) 12.3 H (2-11) % Carbon Dioxide 17 L (22-29) mmol/L BUN 27 H (9-16) mg/dL Urine Protein 300 (3+) H (Neg-Trace) mg/dL Urine Blood Large (3+) H (Negative) Urine Nitrite Positive H (Negative) Ur Leukocyte Esterase Small (1+) H (Negative) Urine RBC >20 H (0-2) /HPF Short CBC 01/16/23 Range/Units 02:30 WBC 7.2 (4.8-10.8) X10*3/uL Hgb 13.7 L (14.0-18.0) g/dl Hct 40.7 L (42.0-52.0) % Plt Count 173 (160-400) X10*3/uL BMP 01/16/23 02:31 Sodium 140 Potassium 4.4 Chloride 108 Carbon Dioxide 17 L BUN 27 H Creatinine 1.25 Calcium 10.1 Liver Function 01/16/23 Range/Units 02:31 Total Bilirubin 0.3 (0.0-1.0) mg/dL AST 28 (5-37) U/L ALT 27 (0-40) U/L Alkaline Phosphatase 50 (39-117) U/L Albumin 4.3 (3.5-5.0) g/dL Urine 01/16/23 Range/Units 02:21 Urine Color RED Urine Appearance Cloudy Urine pH 7.0 (5.0-9.0) Ur Specific [place] 1.020 (1.005-1.025) Urine Protein 300 (3+) H (Neg-Trace) mg/dL Urine Glucose (UA) Negative (Negative) mg/dL Imaging Abdomen CT scan report/results: report reviewed and image reviewed CT scan - pelvis: report reviewed and image reviewed Additional studies: Date of Service: 01/16/23 EXAMINATION: CT ABDOMEN AND PELVIS WITHOUT AND WITH CONTRAST [CT UROGRAM] CLINICAL INFORMATION: Gross hematuria. Evaluate for kidney stone versus malignancy. COMPARISON: None. TECHNIQUE: Multidetector volumetric imaging was performed from the superior aspect of the liver through the pubic symphysis before and after the administration of 85 mL Omnipaque 350 intravenous contrast. Postcontrast images were acquired utilizing split bolus technique during the nephrographic and urographic phases. Sagittal and coronal reformatted images were obtained on the technologist workstation. This CT examination was performed using dose optimization techniques as appropriate, variously including the following: *Automated exposure control *Adjustment of mA and/or kV according to patient size (this includes techniques or standardized protocols for targeted exams where dose is matched to indication/reason for exam; i.e. extremities or head) *Use of iterative reconstruction technique DLP: 1178 mGy-cm FINDINGS: IMAGED THORAX: The visualized lung bases are unremarkable. GENITOURINARY: The kidneys are normal in size, axis, morphology and parenchymal attenuation with symmetric uptake and excretion of contrast bilaterally. No hydronephrosis, hydroureter or perinephric abnormality. No filling defects within the renal pelves, ureters or bladder. No urinary calculi. There are a few bilateral subcentimeter renal cysts which are benign. No follow-up imaging recommended. No suspicious renal cyst or mass. Ureters are normal in course and caliber. Bladder is decompressed by Mccauley catheter. On the unenhanced images, there is layering hyperdensity compatible with blood/blood clot. Expected small gas within the bladder in the setting of catheterization. Prostate is mildly enlarged measuring up to 5.5 cm transversely. Seminal vesicles unremarkable. LIVER, GALLBLADDER, AND BILIARY TREE: The liver is normal in size, shape, and attenuation. No focal hepatic lesion or biliary ductal dilatation is present. The gallbladder is unremarkable with no evidence of radiopaque gallstones, gallbladder wall thickening, or obvious pericholecystic inflammatory changes. PANCREAS: Unremarkable. SPLEEN: Unremarkable. ADRENAL GLANDS: Unremarkable. GASTROINTESTINAL TRACT: The small and large bowel are unremarkable. The appendix is unremarkable. ABDOMINAL WALL: Small fat-containing umbilical hernia. Small bilateral fat-containing direct inguinal hernias. LYMPH NODES: Normal. VASCULAR: Aorta is atherosclerotic but normal caliber. Patent vascular structures. OSSEOUS STRUCTURES: No acute or suspicious osseous abnormalities. Intact left total hip arthroplasty. IMPRESSION: * No etiology for the patient's hematuria is identified within the kidneys, ureters or bladder. No urinary calculi. * Hematocrit level within the bladder in keeping with the provided history of gross hematuria, the source of which is unclear from an anatomic imaging standpoint. * Mild prostatomegaly. Assessment and Plan (1) BPH loc w urin obs/LUTS: Status: Acute (2) Acute urinary retention: Status: Acute (3) Gross hematuria: Status: Acute (4) Acute UTI: Status: Acute (5) Anticoagulant long-term use: Status: Acute Plan Cont CBI Antibiotics Eliquis on hold start tamsulosin 0.4 mg daily out patient follow up with me Time Spent With Patient Time: Total time managing care of this patient today ____ minutes. Procedures Date of Service Date of Service: 01/16/23
[2023-01-16] MEDS: 0.9 % Sodium Chloride Flush 3 ML SYRINGE IVFLUSH ×2 (15:16→20:34)
--- NOTE | 2023-01-16 17:21 | PC.NURSE ---
Patient is alert and oriented, answering questions appropriately and joking around with this nurse. Patient states that the IV morphine helped with the bladder spasm pain that he was having and he is report no pain at this time. [place] urine noted in catheter bag.
[2023-01-16] MEDS: Montelukast Sodium 10 MG TABLET PO (20:32)
[2023-01-16] MEDS: Propranolol HCL 40 MG TABLET 80 MG PO (20:32)
[2023-01-16] MEDS: Melatonin 3 MG TABLET 6 MG PO (20:33)
[2023-01-17] VITALS (7 sets, daily range): BP systolic 126–152; BP diastolic 74–80; PULSE 61–80; RESP 18–20; TEMP 36.1–36.5; O2SAT 94–99
[2023-01-17] MEDS: Morphine Sulfate 4 MG/ML CARTRIDGE IVPUSH ×5 (04:24→21:37)
--- NOTE | 2023-01-17 05:03 | PC.NURSE ---
Pt seen on CBI at shift changed with cranberry red urine output, CBI is titrated accordingly. Pt c/o spastic pressure pain on the genital area until the tip of meatus, manual irrigation of catheter done and obtained larged clots, pt stands up for a few mins, pt felt relief after, CBI cont.
[2023-01-17 06:59] LABS: Hematocrit 43.3 % (42.0-52.0); Hemoglobin 14.5 g/dl (14.0-18.0); Mean Corpuscular HGB Conc 33.5 g/dl (31.0-36.0); Mean Corpuscular Hemoglobin 28.8 pg (27.0-33.0); Mean Corpuscular Volume 86.1 fL (80.0-98.0); Mean Platelet Volume 9.3 fL (9.4-12.4); Platelet Count 187 X10*3/uL (160-400); Red Blood Count 5.03 X10*6/uL (4.60-5.80); White Blood Count 7.4 X10*3/uL (4.8-10.8)
[2023-01-17 07:17] LABS: Anion Gap 15 (12-20); Blood Urea Nitrogen 22 mg/dL (9-16); Calcium 9.8 mg/dL (8.4-10.2); Carbon Dioxide 22 mmol/L (22-29); Chloride 104 mmol/L (96-108); Creatinine Clr Calc Pharmacy 66.7; Estimated Glomerular Filt Rate 57; Glucose Fasting 129 mg/dL (60-99); Potassium 4.1 mmol/L (3.3-5.1); Sodium 137 mmol/L (135-145)
[2023-01-17] MEDS: cefTRIAXone sodium 1 GM in 0.9 % Sodium Chloride 50 ML IV (08:49)
[2023-01-17] MEDS: Tamsulosin HCL 0.4 MG CAPSULE PO (08:58)
[2023-01-17] MEDS: allopurinoL 300 MG TABLET PO (08:59)
[2023-01-17] MEDS: Losartan Potassium 50 MG TABLET 100 MG PO (08:59)
[2023-01-17] MEDS: Ascorbic Acid 500 MG TABLET 1000 MG PO (09:00)
[2023-01-17] MEDS: 0.9 % Sodium Chloride Flush 3 ML SYRINGE IVFLUSH ×2 (09:00→20:21)
[2023-01-17] MEDS: Propranolol HCL 40 MG TABLET 80 MG PO ×2 (09:00→20:21)
[2023-01-17] MEDS: clonazePAM 0.5 MG TABLET PO (09:08)
--- NOTE | 2023-01-17 09:17 | HO.PM.IMPN ---
Subjective Subjective Date of Service: 01/17/23 Interval History: hematuria resolved Physical Exam Vital Signs: Vital Signs: Last Vital Signs Temp 97.4 F 01/17/23 07:15 Pulse 70 01/17/23 07:15 Resp 19 01/17/23 09:08 BP 126/74 01/17/23 07:15 Pulse Ox 96 01/17/23 07:15 O2 Del Method Room Air 01/17/23 07:15 BMI result Body Mass Index 30.3 Const: General: healthy appearing, no acute distress and well developed Orientation/consciousness: patient oriented x3 HEENT: Head: Yes normocephalic and Yes atraumatic Eyes: Conjunctivae: conjunctivae normal Neck: Neck: Yes normal visual inspection Chest: Chest palpation & inspection: normal inspection of the chest Resp: Effort & Inspection: normal respiratory effort Cardio: Rate: regular rate GI: Inspection: Yes normal to inspection Palpation (GI): Soft to palpation : Other: mccauley in place Penis: normal penis Scrotum: scrotum normal Skin: General skin exam: no rashes or lesions noted Neuro: General: patient oriented x3 Extrem: General: No pedal edema Psych: Appearance: grossly normal Affect: normal affect Objective Data Active Medications Allopurinol (Allopurinol 300 Mg Tablet) 300 mg PO DAILY [facility] Last Admin: 01/17/23 08:59 Dose: 300 mg Documented By: COTEMA Ascorbic Acid (Ascorbic Acid 500 Mg Tablet) 1,000 mg PO DAILY [facility] Last Admin: 01/17/23 09:00 Dose: 1,000 mg Documented By: RENE Clonazepam (Clonazepam 0.5 Mg Tablet) 0.5 mg PO DAILY PRN PRN Reason: Anxiety Last Admin: 01/17/23 09:08 Dose: 0.5 mg Documented By: COTEMA Ceftriaxone Sodium 1 gm/ (Sodium Chloride) 50 mls @ 100 mls/hr IV Q24H [facility] Last Admin: 01/17/23 08:49 Dose: 100 mls/hr Documented By: CHARLOTTEEMA Losartan Potassium (Losartan Potassium 50 Mg Tablet) 100 mg PO DAILY [facility]; Protocol Last Admin: 01/17/23 08:59 Dose: 100 mg Documented By: CHARLOTTEEMA Melatonin (Melatonin 3 Mg Tablet) 6 mg PO BEDTIME [facility] Last Admin: 01/16/23 20:33 Dose: 6 mg Documented By: MARSHAMarc Montelukast Sodium (Montelukast Sodium 10 Mg Tablet) 10 mg PO BEDTIME [facility] Last Admin: 01/16/23 20:32 Dose: 10 mg Documented By: CASTILMarc Morphine Sulfate (Morphine Sulfate 4 Mg/Ml Cartridge) 4 mg IVPUSH Q3H PRN; Protocol PRN Reason: moderate pain Last Admin: 01/17/23 09:08 Dose: 4 mg Documented By: CHARLOTTEEMA Propranolol HCl (Propranolol Hcl 40 Mg Tablet) 80 mg PO BID [facility]; Protocol Last Admin: 01/17/23 09:00 Dose: 80 mg Documented By: CHARLOTTEEMA Sodium Chloride (0.9 % Sodium Chloride Flush 3 Ml Syringe) 3 ml IVFLUSH QSHIFT [facility] Last Admin: 01/17/23 09:00 Dose: 3 ml Documented By: RENE Tamsulosin HCl (Tamsulosin Hcl 0.4 Mg Capsule) 0.4 mg PO DAILY [facility] Last Admin: 01/17/23 08:58 Dose: 0.4 mg Documented By: RENE Labs 01/17/23 05:31 01/17/23 05:31 Labs: Laboratory Results - last 24 hr 01/17/23 05:31 MCV 86.1 MCH 28.8 MCHC 33.5 RDW 14.0 Plt Count 187 MPV 9.3 L Absolute Nucleated RBC 0.000 Nucleated RBC % (auto) 0.0 Anion Gap 15 Estim Creat Clear Calc 66.7 Estimated GFR 57 Fasting Glucose 129 H Calcium 9.8 Assessment and Plan (1) BPH loc w urin obs/LUTS: Status: Acute Plan 67M PMH mild intermittent asthma, paroxysmal afib on eliquis, htn, gout, bph, presented with hematuria and urinary retention acute uti complicated by hematuria and urinary retention improving, continue rocephin, gu appreciated, holding eliquis, follow up cultures started flomax Paroxysmal atrial fibrillation Continue propanolol, hold Eliquis Mild intermittent asthma Stable Gout Allopurinol Hypertension Losartan DVT prophylaxis-mechanical due to hematuria Full code reason for continued hospitalization:awaiting culture Time Spent With Patient Time: Total time managing care of this patient today ____ minutes. Quality Stroke Does the patient have a stroke diagnosis?: No VTE Prior VTE?: No VTE Risk Level:: Medical - moderate - high VTE Device Contraindication: N/A - Device Ordered VTE Drug Contraindication: Treatment Not Tolerated
[2023-01-17] MEDS: polyethylene glycoL 3350 17 GM POWD.PACK PO (12:30)
[2023-01-17] MEDS: oxyBUTYnin chloride ER 5 MG TAB.ER.24 PO (13:06)
--- NOTE | 2023-01-17 14:07 | MHC.CM.PN ---
IMM 01/17/23, Pt lives in [facility], independent, no prior home health services. Transportation home will be via family. He does not have a preference for VNA services if needed. He has a HCP, it is not on file. His PCP retired and he is not assigned to a new one yet, he sees the interim provider at [facility]. CM to follow and assist with DC plan.
[2023-01-17] MEDS: LORazepam 2 MG/ML VIAL 1 MG IVPUSH (16:11)
--- NOTE | 2023-01-17 16:30 | P.PNUR_ITS ---
Subjective Subjective Date of Service: 01/17/23 Interval history: Hematuria improving, still intermittent clots Significant bladder spasms Physical Exam 2 Vital Signs: Vital Signs: Last Vital Signs Temp 97.3 F 01/17/23 15:14 Pulse 68 01/17/23 15:14 Resp 20 01/17/23 15:14 BP 152/80 H 01/17/23 15:14 Pulse Ox 99 01/17/23 15:14 O2 Del Method Room Air 01/17/23 15:14 BMI result Body Mass Index 30.3 Urology Results Labs 01/17/23 05:31 01/17/23 05:31 Labs: Laboratory Results - last 24 hr 01/17/23 05:31 WBC 7.4 RBC 5.03 Hgb 14.5 Hct 43.3 MCV 86.1 MCH 28.8 MCHC 33.5 RDW 14.0 Plt Count 187 MPV 9.3 L Absolute Nucleated RBC 0.000 Nucleated RBC % (auto) 0.0 Sodium 137 Potassium 4.1 Chloride 104 Carbon Dioxide 22 Anion Gap 15 BUN 22 H Creatinine 1.25 Estim Creat Clear Calc 66.7 Estimated GFR 57 Fasting Glucose 129 H Calcium 9.8 Progress Note: A&P Assessment and plan (1) Anticoagulant long-term use: Status: Acute (2) Acute UTI: Status: Acute (3) Acute urinary retention: Status: Acute (4) Gross hematuria: Status: Acute (5) Painful bladder spasm: Status: Acute Plan Levsin SL 0.125 mg tid pyridium 200 mg tid Cysto tomorrow, NPO past MN Time Spent With Patient Time: Total time managing care of this patient today ____ minutes. Progress Note: Quality Stroke Does the patient have a stroke diagnosis?: No
[2023-01-17] MEDS: Phenazopyridine HCL 200 MG TABLET PO (18:08)
[2023-01-17] MEDS: Mirabegron 50 MG TAB.ER.24H PO (18:08)
[2023-01-17] MEDS: Montelukast Sodium 10 MG TABLET PO (20:21)
[2023-01-17] MEDS: Melatonin 3 MG TABLET 6 MG PO (20:21)
[2023-01-17] MEDS: LORazepam 1 MG TABLET PO (23:34)
[2023-01-18] VITALS (14 sets, daily range): BP systolic 110–144; BP diastolic 60–88; PULSE 64–90; RESP 16–18; TEMP 35.9–36.7; O2SAT 94–98
[2023-01-18] MEDS: Morphine Sulfate 4 MG/ML CARTRIDGE IVPUSH ×3 (02:54→19:53)
[2023-01-18 05:31] LABS: Hematocrit 41.6 % (42.0-52.0); Hemoglobin 13.6 g/dl (14.0-18.0); Mean Corpuscular HGB Conc 32.7 g/dl (31.0-36.0); Mean Corpuscular Hemoglobin 28.3 pg (27.0-33.0); Mean Corpuscular Volume 86.5 fL (80.0-98.0); Mean Platelet Volume 9.1 fL (9.4-12.4); Platelet Count 177 X10*3/uL (160-400); Red Blood Count 4.81 X10*6/uL (4.60-5.80); Red Cell Distribution Width 13.7 % (11.0-16.0); White Blood Count 8.9 X10*3/uL (4.8-10.8)
[2023-01-18 05:45] LABS: Anion Gap 14 (12-20); Blood Urea Nitrogen 28 mg/dL (9-16); Calcium 9.6 mg/dL (8.4-10.2); Carbon Dioxide 21 mmol/L (22-29); Chloride 103 mmol/L (96-108); Creatinine Clr Calc Pharmacy 51.4; Estimated Glomerular Filt Rate 42; Glucose Fasting 126 mg/dL (60-99); Potassium 4.4 mmol/L (3.3-5.1); Sodium 134 mmol/L (135-145)
[2023-01-18] MEDS: cefTRIAXone sodium 1 GM in 0.9 % Sodium Chloride 50 ML IV (08:08)
[2023-01-18] MEDS: Propranolol HCL 40 MG TABLET 80 MG PO ×2 (08:09→21:17)
[2023-01-18] MEDS: Ascorbic Acid 500 MG TABLET 1000 MG PO (08:09)
[2023-01-18] MEDS: Losartan Potassium 50 MG TABLET 100 MG PO (08:09)
[2023-01-18] MEDS: Phenazopyridine HCL 200 MG TABLET PO ×3 (08:09→17:09)
[2023-01-18] MEDS: Mirabegron 50 MG TAB.ER.24H PO (08:09)
[2023-01-18] MEDS: allopurinoL 300 MG TABLET PO (08:09)
[2023-01-18] MEDS: clonazePAM 0.5 MG TABLET PO (08:10)
[2023-01-18] MEDS: 0.9 % Sodium Chloride Flush 3 ML SYRINGE IVFLUSH ×2 (08:10→23:38)
[2023-01-18] MEDS: Tamsulosin HCL 0.4 MG CAPSULE PO (08:53)
--- NOTE | 2023-01-18 09:58 | HO.PM.IMPN ---
Subjective Subjective Date of Service: 01/18/23 Interval History: still with spasms Physical Exam Vital Signs: Vital Signs: Last Vital Signs Temp 96.9 F 01/18/23 07:36 Pulse 78 01/18/23 07:36 Resp 18 01/18/23 07:36 BP 122/71 01/18/23 07:36 Pulse Ox 95 01/18/23 07:36 O2 Del Method Room Air 01/18/23 07:36 BMI result Body Mass Index 30.3 Const: General: healthy appearing, no acute distress and well developed Orientation/consciousness: patient oriented x3 HEENT: Head: Yes normocephalic and Yes atraumatic Eyes: Conjunctivae: conjunctivae normal Neck: Neck: Yes normal visual inspection Chest: Chest palpation & inspection: normal inspection of the chest Resp: Effort & Inspection: normal respiratory effort Cardio: Rate: regular rate GI: Inspection: Yes normal to inspection Palpation (GI): Soft to palpation : Other: mccauley in place Penis: normal penis Scrotum: scrotum normal Skin: General skin exam: no rashes or lesions noted Neuro: General: patient oriented x3 Extrem: General: No pedal edema Psych: Appearance: grossly normal Affect: normal affect Objective Data Active Medications Allopurinol (Allopurinol 300 Mg Tablet) 300 mg PO DAILY [facility] Last Admin: 01/18/23 08:09 Dose: 300 mg Documented By: VANESSA Ascorbic Acid (Ascorbic Acid 500 Mg Tablet) 1,000 mg PO DAILY [facility] Last Admin: 01/18/23 08:09 Dose: 1,000 mg Documented By: VANESSA Clonazepam (Clonazepam 0.5 Mg Tablet) 0.5 mg PO DAILY PRN PRN Reason: Anxiety Last Admin: 01/18/23 08:10 Dose: 0.5 mg Documented By: VANESSA Ceftriaxone Sodium 1 gm/ (Sodium Chloride) 50 mls @ 100 mls/hr IV Q24H [facility] Last Infusion: 01/18/23 08:54 Dose: Infused Documented By: VANESSA Cefazolin Sodium/Dextrose (Ancef) 2 gm in 50 mls @ 100 mls/hr IV PREOP ONE Stop: 01/18/23 10:10 Lorazepam (Lorazepam 1 Mg Tablet) 1 mg PO BEDTIME PRN PRN Reason: anxiety/restlessness Last Admin: 01/17/23 23:34 Dose: 1 mg Documented By: LEONEL Losartan Potassium (Losartan Potassium 50 Mg Tablet) 100 mg PO DAILY [facility]; Protocol Last Admin: 01/18/23 08:09 Dose: 100 mg Documented By: VANESSA Melatonin (Melatonin 3 Mg Tablet) 6 mg PO BEDTIME [facility] Last Admin: 01/17/23 20:21 Dose: 6 mg Documented By: LEONEL Mirabegron (Mirabegron 50 Mg Tab.Er.24h) 50 mg PO DAILY [facility] Last Admin: 01/18/23 08:09 Dose: 50 mg Documented By: VANESSA Montelukast Sodium (Montelukast Sodium 10 Mg Tablet) 10 mg PO BEDTIME [facility] Last Admin: 01/17/23 20:21 Dose: 10 mg Documented By: LEONEL Morphine Sulfate (Morphine Sulfate 4 Mg/Ml Cartridge) 4 mg IVPUSH Q3H PRN; Protocol PRN Reason: moderate pain Last Admin: 01/18/23 08:10 Dose: 4 mg Documented By: VANESSA Phenazopyridine HCl (Phenazopyridine Hcl 200 Mg Tablet) 200 mg PO TIDWM [facility] Stop: 01/19/23 12:01 Last Admin: 01/18/23 08:09 Dose: 200 mg Documented By: VANESSA Propranolol HCl (Propranolol Hcl 40 Mg Tablet) 80 mg PO BID [facility]; Protocol Last Admin: 01/18/23 08:09 Dose: 80 mg Documented By: VANESSA Sodium Chloride (0.9 % Sodium Chloride Flush 3 Ml Syringe) 3 ml IVFLUSH QSHIFT [facility] Last Admin: 01/18/23 08:10 Dose: 3 ml Documented By: VANESSA Tamsulosin HCl (Tamsulosin Hcl 0.4 Mg Capsule) 0.4 mg PO DAILY [facility] Last Admin: 01/18/23 08:53 Dose: 0.4 mg Documented By: VANESSA Labs 01/18/23 05:08 01/18/23 05:08 Labs: Laboratory Results - last 24 hr 01/18/23 05:08 MCV 86.5 MCH 28.3 MCHC 32.7 RDW 13.7 Plt Count 177 MPV 9.1 L Absolute Nucleated RBC 0.000 Nucleated RBC % (auto) 0.0 Anion Gap 14 Estim Creat Clear Calc 51.4 Estimated GFR 42 Fasting Glucose 126 H Calcium 9.6 Microbiology Microbiology Results: Microbiology 01/16/23 Unknown Urine Culture - Final Urine clean catch - Urine palomino top No growth. Assessment and Plan (1) BPH loc w urin obs/LUTS: Status: Acute Plan 67M PMH mild intermittent asthma, paroxysmal afib on eliquis, htn, gout, bph, presented with hematuria and urinary retention acute uti complicated by hematuria and urinary retention continue rocpehin, intermittent irrigation, currently clear, but having some clots yesterday urine culture negative pain control for spasma started flomax plan for cysto today Paroxysmal atrial fibrillation Continue propanolol, hold Eliquis Mild intermittent asthma Stable Gout Allopurinol Hypertension Losartan DVT prophylaxis-mechanical due to hematuria Full code reason for continued hospitalization:awaiting culture Time Spent With Patient Time: Total time managing care of this patient today ____ minutes. Quality Stroke Does the patient have a stroke diagnosis?: No VTE Prior VTE?: No VTE Risk Level:: Medical - moderate - high VTE Device Contraindication: N/A - Device Ordered VTE Drug Contraindication: Treatment Not Tolerated
--- NOTE | 2023-01-18 11:42 | P.CONAN_ITS ---
[facility] Active Problems Active Problems: All Active Problems (Updated 01/17/23 @ 16:31 by Catina Bradshaw MD) Painful bladder spasm (Acute) Bladder spasms (Acute) Anticoagulant long-term use (Acute) Acute UTI (Acute) BPH loc w urin obs/LUTS (Acute) Acute urinary retention (Acute) Anticoagulation therapy continued upon discharge (Acute) Urinary tract infection (Acute) Gross hematuria (Acute) Bronchitis (Acute) COVID-19 virus infection (Acute) Cough (Acute) Cough due to bronchospasm (Acute) Allergic rhinitis (Acute) SOB (shortness of breath) on exertion (Acute) Paroxysmal atrial fibrillation (Acute) LBBB (left bundle branch block) (Acute) HTN (hypertension) (Acute) Past Medical History Medical History Bronchitis Cough Cough due to bronchospasm Allergic rhinitis Paroxysmal atrial fibrillation LBBB (left bundle branch block) HTN (hypertension) Functional capacity: independent ambulation Family History Family History Father Myocardial infarction Mother Diabetes Family history of problems with anesthesia: No Surgical History Surgical History History of knee surgery History of hip surgery History of Problems with Anesthesia: No Social History Social History Household Members: None [facility] Do you presently have visiting nurse or other home services: No Alcohol intake: current Alcohol intake frequency: a few times a week Alcohol type: beer Patient Tobacco Use Status: Never used Tobacco Second Hand Smoke Exposure: No service: No Meds Allergies Allergy/AdvReac Type Severity Reaction Status Date / Time No Known Drug Allergies Allergy Unknown NONE Verified 01/16/23 02:18 Active Medications: Current Medications Allopurinol (Allopurinol 300 Mg Tablet) 300 mg PO DAILY [facility] Last Admin: 01/18/23 08:09 Dose: 300 mg Ascorbic Acid (Ascorbic Acid 500 Mg Tablet) 1,000 mg PO DAILY [facility] Last Admin: 01/18/23 08:09 Dose: 1,000 mg Clonazepam (Clonazepam 0.5 Mg Tablet) 0.5 mg PO DAILY PRN PRN Reason: Anxiety Last Admin: 01/18/23 08:10 Dose: 0.5 mg Ceftriaxone Sodium 1 gm/ (Sodium Chloride) 50 mls @ 100 mls/hr IV Q24H [facility] Last Infusion: 01/18/23 08:54 Dose: Infused Lorazepam (Lorazepam 1 Mg Tablet) 1 mg PO BEDTIME PRN PRN Reason: anxiety/restlessness Last Admin: 01/17/23 23:34 Dose: 1 mg Losartan Potassium (Losartan Potassium 50 Mg Tablet) 100 mg PO DAILY [facility]; Protocol Last Admin: 01/18/23 08:09 Dose: 100 mg Melatonin (Melatonin 3 Mg Tablet) 6 mg PO BEDTIME [facility] Last Admin: 01/17/23 20:21 Dose: 6 mg Mirabegron (Mirabegron 50 Mg Tab.Er.24h) 50 mg PO DAILY [facility] Last Admin: 01/18/23 08:09 Dose: 50 mg Montelukast Sodium (Montelukast Sodium 10 Mg Tablet) 10 mg PO BEDTIME [facility] Last Admin: 01/17/23 20:21 Dose: 10 mg Morphine Sulfate (Morphine Sulfate 4 Mg/Ml Cartridge) 4 mg IVPUSH Q3H PRN; Protocol PRN Reason: moderate pain Last Admin: 01/18/23 08:10 Dose: 4 mg Phenazopyridine HCl (Phenazopyridine Hcl 200 Mg Tablet) 200 mg PO TIDWM [facility] Stop: 01/19/23 12:01 Last Admin: 01/18/23 08:09 Dose: 200 mg Propranolol HCl (Propranolol Hcl 40 Mg Tablet) 80 mg PO BID [facility]; Protocol Last Admin: 01/18/23 08:09 Dose: 80 mg Sodium Chloride (0.9 % Sodium Chloride Flush 3 Ml Syringe) [facility] Last Admin: 01/18/23 08:10 Dose: 3 ml Tamsulosin HCl (Tamsulosin Hcl 0.4 Mg Capsule) 0.4 mg PO DAILY [facility] Last Admin: 01/18/23 08:53 Dose: 0.4 mg Home Medications Medication Instructions Recorded Confirmed Last Taken Type allopurinol 300 mg tablet 300 mg PO DAILY 04/08/20 01/16/23 Unknown History clonazepam 0.5 mg tablet 0.5 mg PO DAILY PRN Anxiety 04/08/20 01/16/23 Unknown History propranolol 80 mg tablet 80 mg PO BID 04/29/22 01/16/23 Unknown History losartan 50 mg tablet 100 mg PO DAILY 09/09/22 01/16/23 Unknown History acetaminophen 500 mg tablet 1,000 mg PO Q6H PRN Pain 01/16/23 01/16/23 Unknown History ascorbic acid (vitamin C) 500 mg 1,000 mg PO DAILY 01/16/23 01/16/23 Unknown History chewable tablet (Vitamin C) melatonin 5 mg tablet 5 mg PO BEDTIME 01/16/23 01/16/23 Unknown History Exam Exam Date and Time: January 18, 2023 1142 Height,Weight and Vital Signs: Height 5 ft 11 in Weight 98.5 kg Last Vital Signs Temp 97.0 F 01/18/23 10:45 Pulse 74 01/18/23 10:45 Resp 18 01/18/23 10:45 BP 110/60 01/18/23 10:45 Pulse Ox 96 01/18/23 10:45 O2 Del Method Room Air 01/18/23 10:45 Pertinent Lab Results Pertinent Lab Results: Laboratory Tests 01/16/23 01/16/23 01/16/23 02:21 02:30 02:31 WBC 7.2 RBC 4.82 Hgb 13.7 L Hct 40.7 L MCV 84.4 MCH 28.4 MCHC 33.7 RDW 13.8 Plt Count 173 MPV 8.8 L Immature Gran % (Auto) 0.4 Neut % (Auto) 62.9 Lymph % (Auto) 20.3 [place] % (Auto) 12.3 H Eos % (Auto) 3.5 Baso % (Auto) 0.6 Lymph # (Auto) 1.5 [place] # (Auto) 0.9 Eos # (Auto) 0.3 Baso # (Auto) 0.0 Abs Immat Gran (auto) 0.03 Absolute Neuts (auto) 4.6 Absolute Nucleated RBC 0.000 Nucleated RBC % (auto) 0.0 PT 12.7 INR 1.0 APTT 32.5 Sodium 140 Potassium 4.4 Chloride 108 Carbon Dioxide 17 L Anion Gap 19 BUN 27 H Creatinine 1.25 Estim Creat Clear Calc 66.7 Estimated GFR 57 Random Glucose 110 Fasting Glucose Calcium 10.1 Total Bilirubin 0.3 AST 28 ALT 27 Alkaline Phosphatase 50 Total Protein 7.5 Albumin 4.3 Urine Color RED Urine Appearance Cloudy Urine pH 7.0 Ur Specific [place] 1.020 Urine Protein 300 (3+) H Urine Glucose (UA) Negative Urine Ketones 15 Urine Blood Large (3+) H Urine Nitrite Positive H Ur Leukocyte Esterase Small (1+) H Urine RBC >20 H Urine WBC 11-20 Ur Squamous Epith Cells 3-5 Urine Bacteria Trace Hyaline Casts 0-2 01/17/23 01/18/23 05:31 05:08 WBC 7.4 8.9 RBC 5.03 4.81 Hgb 14.5 13.6 L Hct 43.3 41.6 L MCV 86.1 86.5 MCH 28.8 28.3 MCHC 33.5 32.7 RDW 14.0 13.7 Plt Count 187 177 MPV 9.3 L 9.1 L Immature Gran % (Auto) Neut % (Auto) Lymph % (Auto) [place] % (Auto) Eos % (Auto) Baso % (Auto) Lymph # (Auto) [place] # (Auto) Eos # (Auto) Baso # (Auto) Abs Immat Gran (auto) Absolute Neuts (auto) Absolute Nucleated RBC 0.000 0.000 Nucleated RBC % (auto) 0.0 0.0 PT INR APTT Sodium 137 134 L Potassium 4.1 4.4 Chloride 104 103 Carbon Dioxide 22 21 L Anion Gap 15 14 BUN 22 H 28 H Creatinine 1.25 1.62 H Estim Creat Clear Calc 66.7 51.4 Estimated GFR 57 42 Random Glucose Fasting Glucose 129 H 126 H Calcium 9.8 9.6 Total Bilirubin AST ALT Alkaline Phosphatase Total Protein Albumin Urine Color Urine Appearance Urine pH Ur Specific [place] Urine Protein Urine Glucose (UA) Urine Ketones Urine Blood Urine Nitrite Ur Leukocyte Esterase Urine RBC Urine WBC Ur Squamous Epith Cells Urine Bacteria Hyaline Casts Assessment and Plan Assessment Anesthesia Assessment: Anesthesia Plan Discussed Final Anesthetic Review Family History of Problems with Anesthesia: No History of Problems with Anesthesia: No NPO: Yes ASA Class: III and Emergency Final Preanesthetic Review: Meds/Allgs Chart Reviewed, Consent Obtained/Reviewed and Anes Risks/Benef Reviewed Patient Risk: Intermediate Procedure Risk: Low Anesthetic Plan Anesthetic Plan: GA Disposition: Standard PACU
--- NOTE | 2023-01-18 11:54 | MHC.SHP ---
Pre-Procedural Eval Section A Date of Service: 01/18/23 The patient is an INPATIENT: Yes The History & Physical has been completed within 30 days and I have reviewed it.: Yes Section B Chief Complaint: UTI Hematuria Allergies: Allergies Allergy/AdvReac Type Severity Reaction Status Date / Time No Known Drug Allergies Allergy Unknown NONE Verified 01/16/23 02:18 Plan Diagnosis/Plan: Unchanged I have reviewed the history and physical and performed a pertinent physical examination on my patient. No changes have occurred unless specified. Cysto clot evacuation, possible bladder biopsy Time Spent With Patient Time: Total time managing care of this patient today ____ minutes.
--- NOTE | 2023-01-18 12:52 | W.PM.OPN ---
Operative Note Operative Note Date of Service: 01/18/23 Narrative: PREOP DIAGNOSIS: GROSS HEMATURIA POSTOP DIAGNOSIS: GROSS HEMATURIA, ENLARGED PROSTATE PROCEDURE: CYSTOSCOPY EVACUATION BLADDER CLOTS, FULGURATION, BLADDER BIOPSY, IRREGULAR LESION </=1 CM SURGEON: Catina Bradshaw MD ANESTHESIA: General Details of procedure: The patient was brought into the operating room placed on the OR table in supine position. Antibiotics - Ancef 2 gm IV. General anesthesia was administered. The patient was repositioned into lithotomy position, prepped and draped in the usual sterile fashion. Time-out was done per protocol. The 24 fr resectoscope was passed under direct visualization. The bulbous urethra was within normal limits. The prostatic urethra was obstructive. There was minimal clots noted, that was irrigated out through the scope, there was bleeding at the bladder neck and prostatic urethra which was fulgurated. Visualization of the bladder mild to moderate trabeculations, irregular erythematous changes posterior wall, which may have been due to catheter, biopsy from this area with resectoscope loop. Once good hemostasis was acheived, the resectoscope was removed. A mccauley was not replaced. The patient was brought out of anesthesia and taken to recovery in stable condition. Complications: None Drains: none
[2023-01-18] MEDS: Lactated Ringers 1,000 ML 80 ML IVCONT (14:18)
[2023-01-18] MEDS: Montelukast Sodium 10 MG TABLET PO (21:17)
[2023-01-18] MEDS: Melatonin 3 MG TABLET 6 MG PO (21:18)
[2023-01-18] MEDS: LORazepam 1 MG TABLET PO (23:37)
[2023-01-19] MEDS: Lactated Ringers 1,000 ML 80 ML IVCONT (02:06)
[2023-01-19 04:00] VITALS: BP 128/69; PULSE 83; RESP 16; TEMP 36.5; O2SAT 95
[2023-01-19 06:02] LABS: Hematocrit 37.8 % (42.0-52.0); Hemoglobin 12.7 g/dl (14.0-18.0); Mean Corpuscular HGB Conc 33.6 g/dl (31.0-36.0); Mean Corpuscular Hemoglobin 28.9 pg (27.0-33.0); Mean Corpuscular Volume 86.1 fL (80.0-98.0); Mean Platelet Volume 9.7 fL (9.4-12.4); Platelet Count 158 X10*3/uL (160-400); Red Blood Count 4.39 X10*6/uL (4.60-5.80); Red Cell Distribution Width 13.6 % (11.0-16.0); White Blood Count 11.4 X10*3/uL (4.8-10.8)
[2023-01-19 06:24] LABS: Anion Gap 15 (12-20); Blood Urea Nitrogen 31 mg/dL (9-16); Calcium 9.4 mg/dL (8.4-10.2); Carbon Dioxide 21 mmol/L (22-29); Chloride 104 mmol/L (96-108); Creatinine Clr Calc Pharmacy 59.1; Estimated Glomerular Filt Rate 50; Glucose Fasting 170 mg/dL (60-99); Potassium 4.4 mmol/L (3.3-5.1); Sodium 136 mmol/L (135-145)
[2023-01-19 08:00] VITALS: BP 136/71; PULSE 75; RESP 18; TEMP 36.5; O2SAT 95
[2023-01-19] MEDS: Phenazopyridine HCL 200 MG TABLET PO (08:03)
[2023-01-19] MEDS: Tamsulosin HCL 0.4 MG CAPSULE PO (08:03)
[2023-01-19] MEDS: allopurinoL 300 MG TABLET PO (08:03)
[2023-01-19] MEDS: Ascorbic Acid 500 MG TABLET 1000 MG PO (08:03)
[2023-01-19] MEDS: Propranolol HCL 40 MG TABLET 80 MG PO (08:03)
[2023-01-19] MEDS: Losartan Potassium 50 MG TABLET 100 MG PO (08:03)
[2023-01-19] MEDS: cefTRIAXone sodium 1 GM in 0.9 % Sodium Chloride 50 ML IV (08:04)
--- NOTE | 2023-01-19 09:23 | HO.POSTANES ---
Post Anesthesia Evaluation Post Anesthesia Evaluation Date of Service: 01/19/23 Vital Signs: Vital Signs Temp Pulse Resp BP Pulse Ox O2 Del Method 01/19/23 08:00 97.7 F 75 18 136/71 95 Room Air 01/19/23 04:00 97.7 F 83 16 128/69 95 Room Air Anesthesia: General Mental Status: Awake Pain Control: Satisfactory Nausea/Vomiting: None Hydration: Adequate Anesthesia-Related Issues: No Anes. Related Issues
--- NOTE | 2023-01-19 10:18 | PM.DS ---
DS: Providers Provider Date of Service: 01/19/23 Date of admission: 01/16/23 09:11 Primary care physician: Trav Whaley MD Consults: 01/16/23 09:11 Consult to Urology Routine Consulting Provider: Catina Bradshaw Reason for consultation: hematuria DS: Diagnosis Discharge Diagnosis (1) BPH loc w urin obs/LUTS: Status: Acute DS: Summary Hospital Course Hospital Course: from initial hpi: 67M PMH mild intermittent asthma, paroxysmal afib on eliquis, htn, gout, bph, presented with hematuria. patient complaining of 1-2 days hematuria, bladder distension and pain, urinary retention. history of bph s/p laser. had mccauley placed with 300cc residual. ua positive for pyuria, nitrites, trace bacteria, rbcs. started on cbi, given rocephin. hospital course: Patient was admitted for acute UTI complicated by hematuria and urinary retention. He was treated with ceftriaxone, intermittent irrigation. Urine culture was negative. Course was complicated by severe spasms. He was seen by Urology and started on Flomax, underwent cystoscopy which revealed obstructive prostatic urethra with minimal clots, bleeding at the bladder neck and prostatic urethra, [id number] trabeculations of the bladder, irregular erythematous changes to the posterior wall, biopsies were taken. Mccauley was removed and patient had successful urination, hematuria resolved. He will be discharged on 5 more days of cefuroxime. Will continue to hold his Eliquis for about 1 week. He will follow up with Urology. For paroxysmal atrial fibrillation he was continued on propanolol, Eliquis was held as mentioned. For mild intermittent asthma remained stable. For gout is continue allopurinol. For hypertension was continue losartan. Course was complicated by mild acute kidney injury with a creatinine of 1.62. This improved to 1.41 at discharge with IV fluids. Should continue to monitor as outpatient. Patient is feeling better and will be discharged home. Time Spent with Patient Time attestation: Total time managing care of this patient today ____ minutes. Discharge coordination time: Greater than 30 minutes Quality: Safe Use of Opioids Does Pt have an Active Cancer Diagnosis on the Problem List?: No Quality: Stroke Does the patient have a stroke diagnosis?: No Physical Exam Vital Signs: Vital Signs: Last Vital Signs Temp 97.7 F 01/19/23 08:00 Pulse 75 10/18/23 08:00 Resp 18 01/19/23 08:00 BP 136/71 01/19/23 08:00 Pulse Ox 95 01/19/23 08:00 O2 Del Method Room Air 01/19/23 08:00 O2 Flow Rate 2 01/18/23 20:00 BMI result Body Mass Index 30.3 General: AO X 3, no acute distress Resp: CTA bilateral, no accessory muscles used CVS: S1,S2,RRR GI: soft, non tender, non distended Neuro: motor grossly intact, alert Psych: appropriate affect, appropriate insight DS: Data Data Completed and Pending Pending studies at discharge: Pending at discharge 01/18/23 12:43 Surgical [PTH] Routine Labs on day of discharge: Laboratory Results - last 24 hr 01/19/23 05:30 WBC 11.4 H RBC 4.39 L Hgb 12.7 L Hct 37.8 L MCV 86.1 MCH 28.9 MCHC 33.6 RDW 13.6 Plt Count 158 L MPV 9.7 Absolute Nucleated RBC 0.000 Nucleated RBC % (auto) 0.0 Sodium 136 Potassium 4.4 Chloride 104 Carbon Dioxide 21 L Anion Gap 15 BUN 31 H Creatinine 1.41 H Estim Creat Clear Calc 59.1 Estimated GFR 50 Fasting Glucose 170 H Calcium 9.4 Discharge Plan Discharge Anticipated Discharge Date/Time: 01/19/23 10:14 Patient Disposition: Home, Self-Care Discharge Diagnosis: uti, hematuria Referrals: Catina Bradshaw MD [Physician] - 5 days (Gross hematuria, bladder irrigation in the ER, discharged with 3 way Mccauley, possible UTI-cefuroxime, CT kidney urinary bladder IV contrast no clear cause for bleeding, patient is on Eliquis) Trav Whaley MD [Primary Care Provider] - 1 Week Discharge Medications: New phenazopyridine 200 mg Tablet 200 mg PO TIDWM Qty: 18 0RF tamsulosin 0.4 mg Capsule 0.4 mg PO DAILY Qty: 30 0RF cefuroxime axetil 500 mg tablet 500 mg PO BID Qty: 10 0RF Continued montelukast 10 mg tablet 10 mg PO BEDTIME Qty: 90 0RF propranolol 80 mg tablet 80 mg PO BID acetaminophen 500 mg Tablet 1,000 mg PO Q6H PRN (Reason: Pain) ascorbic acid (vitamin C) [Vitamin C] 500 mg Tablet,Chewable 1,000 mg PO DAILY melatonin 5 mg Tablet 5 mg PO BEDTIME allopurinol 300 mg tablet 300 mg PO DAILY clonazepam 0.5 mg tablet 0.5 mg PO DAILY PRN (Reason: Anxiety) losartan 50 mg tablet 100 mg PO DAILY Held Eliquis 5 mg tablet 5 mg PO BID 90 Days Qty: 180 3RF Hold Instructions: Resume on 01/24/23. Discharge Orders: Discharge Order (Routine); Ordered 01/19/23 Ordered By: Salomón Cline Diet: Advance to usual diet Activity on Discharge: As tolerated Stand Alone Forms: Patient Portal Discharge page Care Plan Goals: recovery, avoid hematuria Health Concerns: hematuria, uti Plan of Treatment: 5 more days ceftin, hold eliquis about a week, follow up with urology Assessment: see above Patient Instructions: Urinary Tract Infection in Men (ED), Mccauley Catheter Placement and Care (ED), Hematuria (ED)
--- NOTE | 2023-01-19 10:36 | MHC.CM.PN ---
Pt has been medically cleared for DC, he is going home via family and is independent, no services needed.
== END 2023-01-19 10:44 | disposition home or self-care (01) | DRG 713 ==
LOC: HO.ED 01-16 08:24 → HO.EDOVER 01-16 09:54 → HO.S3 01-16 16:17
PROVIDERS: Urology; Admitting Provider Internal Medicine; Emergency Provider Emergency Medicine Emergency Medical Services; PCP Family Medicine; Visit Provider Internal Medicine
PROC: 0V508ZZ Destruction of Prostate, Via Natural or Artificial Opening Endoscopic (ICD-10-PCS; CPT 52214; principal; 2023-01-18 11:10)
DX: N40.1 Benign prostatic hyperplasia with lower urinary tract symptoms (principal); N13.8 Other obstructive and reflux uropathy; N39.0 Urinary tract infection, site not specified; R31.0 Gross hematuria; N32.89 Other specified disorders of bladder; R33.8 Other retention of urine; M10.9 Gout, unspecified; I10 Essential (primary) hypertension; I48.0 Paroxysmal atrial fibrillation; J45.20 Mild intermittent asthma, uncomplicated; Z79.01 Long term (current) use of anticoagulants; Z79.899 Other long term (current) drug therapy
CPT/HCPCS: 52214; 52204; 36415; 74178; 80048; 80053; 81001; 85025; 85027; 85610; 85730; 87086; 88305; 99221; 99285; C1758; J0690; J0696; J1100; J2060; J2250; J2270; J2405; J3010; Q9967

== ENCOUNTER → 2023-01-16 02:18 | Outpatient (BNV) | payer MEDICARE, SELFPAY | PROVIDERS: Emergency Provider Emergency Medicine Emergency Medical Services; PCP Family Medicine; Visit Provider Internal Medicine | DX: N40.1 Benign prostatic hyperplasia with lower urinary tract symptoms (principal) | CPT/HCPCS: 99223; 99232; 99233; 99239 ==

== ENCOUNTER → 2023-01-16 09:11 | Outpatient (BNV) | payer MEDICARE, SELFPAY | PROVIDERS: Admitting Provider Internal Medicine; Emergency Provider Emergency Medicine Emergency Medical Services; PCP Family Medicine; Visit Provider Urology | DX: N32.89 Other specified disorders of bladder (principal) | CPT/HCPCS: 52204; 99222; 99232 ==

== ENCOUNTER 2023-02-16 12:57 | Outpatient (REF) | payer MEDICARE, SELFPAY | END 2023-02-16 12:58 | disposition home or self-care (01) | LOC: HO.LAB 12:57 | PROVIDERS: PCP Family Medicine; Visit Provider Urology | DX: N39.0 Urinary tract infection, site not specified (principal); N40.0 Benign prostatic hyperplasia without lower urinary tract symptoms; R31.0 Gross hematuria; Z79.01 Long term (current) use of anticoagulants; Z79.899 Other long term (current) drug therapy | CPT/HCPCS: 81003; 87086; 99212 ==

== ENCOUNTER 2023-02-16 12:57 | Outpatient (AMB) | payer MEDICARE, SELFPAY ==
--- NOTE | 2023-02-16 13:01 | A.OFFVIS_ITS ---
Intake Intake Visit Reasons: 6 week/ cysto follow up Intake Note: Patient presents today for a follow-up on Post Op: Meds- Tamsulosin Allergies to Antibiotic- No Known Allergies Blood Thinner- Eliquis Bookkeeping Machine Operator Required: No Accompanied by: Self / Same As Patient Allergies No Known Drug Allergies Allergy (Unknown, Verified 01/16/23 02:18) NONE Medication List - Last Reconciled 02/16/23 by Catina Bradshaw MD acetaminophen 1,000 mg PO Q6H PRN allopurinol 300 mg PO DAILY apixaban (Eliquis) 5 mg PO BID 90 days ascorbic acid (vitamin C) (Vitamin C) 1,000 mg PO DAILY cefuroxime axetil 500 mg PO BID clonazepam 0.5 mg PO DAILY PRN losartan 100 mg PO DAILY melatonin 5 mg PO BEDTIME montelukast 10 mg PO BEDTIME phenazopyridine 200 mg PO TIDWM propranolol 80 mg PO BID tamsulosin 0.4 mg PO DAILY vibegron (Gemtesa) 75 mg PO DAILY HPI HPI Comments History of Present Illness Details Kevin is a 67-year-old male who presents today for a follow-up. 02/16/2023-- Kevin is a 67-year-old male who was evaluated in the hospital for gross hematuria and urinary retention. He is a status post Cystoscopy evacuation of bladder clots and bladder biopsy done on 01/18/2023. He was started on Flomax in the hospital He has been taking Flomax at this time. He has had episodes of pink tinged urine, denies dysuria. He is on eliquis I also discussed the pathology report of bladder biopsy noted congestion and inflammation--01/18/2023. In addition the patient states that he had seen an urology in the past for urinary symptoms of urgency and frequency. He had a procedure done on his prostate. He states that he had been treated with multiple medications for the bladder s ymptoms which did not work. He states that the last thing discussed was botox bladder injection; however, the patient is concerned about the side effects of urinary retention. He has raised some concerns regarding erectile dysfunction. I want him to check with his cardio there are no contraindications in using Viagra. Today I have discussed the trial of gemtesa as well as consideration of sacral neuro modulation intertsim therapy. Evaluation today--UA--Blood: 2 +; leukocytes: negative. Plan: I will send urine for culture. Ordered Gemtesa 75 mg daily Continue Flomax and follow-up in 2 months. [facility] Medical History Bronchitis Cough Cough due to bronchospasm Allergic rhinitis Paroxysmal atrial fibrillation LBBB (left bundle branch block) HTN (hypertension) Surgical History History of knee surgery History of hip surgery Family History Father Myocardial infarction Mother Diabetes Social History Household Members: None Housing: Condominium Do you presently have visiting nurse or other home services: No Alcohol intake: current Alcohol intake frequency: a few times a week Alcohol type: beer Patient Tobacco Use Status: Never used Tobacco Second Hand Smoke Exposure: No service: No Review of Systems Const All systems reviewed & are unremarkable except as noted in HPI and below Reports no additional complaints Eyes Reports no additional complaints ENT Reports no additional complaints Card Denies dyspnea Resp Denies cough and Denies dyspnea GI Reports no additional complaints Musc Reports no additional complaints Skin/Breast Denies rash and Denies unusual bruising Neuro Reports no additional complaints Psych Reports no additional complaints Endo Reports no additional complaints Hammad/Lymph Reports no additional complaints Aller/Immun Reports no additional complaints Results AMB Urinalysis, Automated UA Leukoctes 0 Armando/uL Last Edit by JOHAN Alas on 02/16/23 13:18 UA Nitrite Negative Last Edit by JOHAN Alas on 02/16/23 13:18 UA Urobilinogen 0.2 mg/dL Last Edit by JOHAN Alas on 02/16/23 13:1 8 UA Protein 0 mg/dL Last Edit by Devonte Arroyo, A on 02/16/23 13:18 UA pH 6.0 Last Edit by Devonte Arroyo, A on 02/16/23 13:18 UA Blood 80 Gabe/uL Last Edit by Americabam Cruz, A on 02/16/23 13:18 2+ Devonte Arroyo 02/16/23 13:18 UA Specific Drake 1.025 Last Edit by Devonte Arroyo, A on 02/16/23 13: 18 UA Ketone Negative Last Edit by Devonte Arroyo, A on 02/16/23 13:18 UA Bilirubin 0 mg/dL Last Edit by Devonte Arroyo, A on 02/16/23 13:18 UA Glucose 0 mg/dL Last Edit by Devonte Arroyo A on 02/16/23 13:18 Results Reviewed Results Reviewed: Laboratory Last Values Urine pH (Auto) 6.0 02/16/23 13:14 Specific Drake (Auto) 1.025 02/16/23 13:14 Urine Protein (Auto) 0 mg/dL 02/16/23 13:14 Glucose (UA)(Auto) 0 mg/dL 02/16/23 13:14 Urine Ketones (Auto) Negative 02/16/23 13:14 Urine Blood (Auto) 80 Gabe/uL 02/16/23 13:14 Urine Nitrite (Auto) Negative 02/16/23 13:14 Urine Bilirubin (Auto) 0 mg/dL 02/16/23 13:14 Urine Urobilinogen (Auto) 0.2 mg/dL 02/16/23 13:14 Leukocyte Esterase (Auto) 0 Armando/uL 02/16/23 13:14 Diagnosis Bladder, irregular change, biopsy: Completely denuded urothelial stroma with inflammation, hemorrhage, and edema. Comment: There is no epithelium present for evaluation. Consider re-biopsy if clinical suspicion warrants. Clinical History UTI hematuria Microscopic Description Multiple microscopic sections reviewed. Material Received Bladder bx's irregular change Gross Description Received in formalin labeled ?bladder bx's, irregular change? are 2 congested and hemorrhagic versus pigmented oakley-brown irregular tissue fragments each measuring 0.5 cm in greatest dimension which are submitted in toto in a single cassette labeled A. Date of Service: 01/16/23 EXAMINATION: CT ABDOMEN AND PELVIS WITHOUT AND WITH CONTRAST [CT UROGRAM] CLINICAL INFORMATION: Gross hematuria. Evaluate for kidney stone versus malignancy. COMPARISON: None. FINDINGS: IMAGED THORAX: The visualized lung bases are unremarkable. GENITOURINARY: The kidneys are normal in size, axis, morphology and parenchymal attenuation with symmetric uptake and excretion of contrast bilaterally. No hydronephrosis, hydroureter or perinephric abnormality. No filling defects within the renal pelves, ureters or bladder. No urinary calculi. There are a few bilateral subcentimeter renal cysts which are benign. No follow-up imaging recommended. No suspicious renal cyst or mass. Ureters are normal in course and caliber. Bladder is decompressed by Van catheter. On the unenhanced images, there is layering hyperdensity compatible with blood/blood clot. Expected small gas within the bladder in the setting of catheterization. Prostate is mildly enlarged measuring up to 5.5 cm transversely. Seminal vesicles unremarkable. LIVER, GALLBLADDER, AND BILIARY TREE: The liver is normal in size, shape, and attenuation. No focal hepatic lesion or biliary ductal dilatation is present. The gallbladder is unremarkable with no evidence of radiopaque gallstones, gallbladder wall thickening, or obvious pericholecystic inflammatory changes. PANCREAS: Unremarkable. SPLEEN: Unremarkable. ADRENAL GLANDS: Unremarkable. GASTROINTESTINAL TRACT: The small and large bowel are unremarkable. The appendix is unremarkable. ABDOMINAL WALL: Small fat-containing umbilical hernia. Small bilateral fat-containing direct inguinal hernias. LYMPH NODES: Normal. VASCULAR: Aorta is atherosclerotic but normal caliber. Patent vascular structures. OSSEOUS STRUCTURES: No acute or suspicious osseous abnormalities. Intact left total hip arthroplasty. IMPRESSION: * No etiology for the patient's hematuria is identified within the kidneys, ureters or bladder. No urinary calculi. * Hematocrit level within the bladder in keeping with the provided history of gross hematuria, the source of which is unclear from an anatomic imaging standpoint. * Mild prostatomegaly. 11/17/22 as well as KIB 02/09/23. Assessment & Plan Assessment & Plan (1) Gross hematuria: Code(s): R31.0 - Gross hematuria (2) BPH (benign prostatic hyperplasia): Code(s): N40.0 - Benign prostatic hyperplasia without lower urinary tract symptoms (3) Urinary frequency: Code(s): R35.0 - Frequency of micturition (4) Urinary urgency: Code(s): R39.15 - Urgency of urination Plan I will send urine for culture. Ordered Gemtesa 75 mg daily. Continue Flomax and follow-up in 2 months. Orders: Orders AMB Urinalysis Automated 02/16/23 Z13.9 - Encounter for screening, unspecified Urine Culture 02/16/23 N39.0 - Urinary tract infection, site not specified Medications: New vibegron (Gemtesa) 75 mg PO DAILY 90 tabs 3RF Refilled tamsulosin 0.4 mg PO DAILY 90 caps 2RF Patient Instructions: The patient had an opportunity to ask questions regarding treatment plan. All questions were answered. Imaging, Laboratory studies and physical exam results were discussed and reviewed in detail. No major barriers to understanding were identified. The patient expressed understanding and agreement with the above mynor atment plan. The patient is aware they should contact our office by phone for worsening of their current condition or the appearance of new symptoms. Compliance is encouraged with any medications and followup testing that is ordered. It is a privilege to be allowed the opportunity to participate in the urologic care of your patient. If you have any questions or concerns regarding treatment for the above conditions please do not hesitate to contact me. The office telephone contact is [phone]. This note is constructed in part using voice recognition software. While every effort has been made to ensure accuracy microsoft dynamics developer errors may have been included. Yours sincerely, Catina Bradshaw MD Coding Level of Care Code Est Pt Level 4 (60492) Diagnoses Gross hematuria R31.0 BPH (benign prostatic hyperplasia) N40.0 Urinary frequency R35.0 Urinary urgency R39.15
== END 2023-02-16 13:51 | disposition home or self-care (01) ==
PROVIDERS: PCP Family Medicine; Visit Provider Urology
DX: R31.0 Gross hematuria (principal); N40.0 Benign prostatic hyperplasia without lower urinary tract symptoms; R35.0 Frequency of micturition; R39.15 Urgency of urination
CPT/HCPCS: 99214

== ENCOUNTER 2023-04-07 08:30 | Outpatient (AMB) | payer MEDICARE, SELFPAY ==
--- NOTE | 2023-04-07 08:30 | MHC.OFFVIS ---
Intake Intake Visit Reasons: 2m follow up Intake Note: Patient presents today via phone for a 2mo follow-up: Meds- Gemtesa, tamsulosin Allergies to Antibiotic- No Known Allergies Blood Thinner- Eliquis Academic Vice President Required: No Accompanied by: Self / Same As Patient Allergies No Known Drug Allergies Allergy (Unknown, Verified 01/16/23 02:18) NONE Medication List - Last Reconciled 04/07/23 by Catina Bradshaw MD acetaminophen 1,000 mg PO Q6H PRN allopurinol 300 mg PO DAILY apixaban (Eliquis) 5 mg PO BID 90 days ascorbic acid (vitamin C) (Vitamin C) 1,000 mg PO DAILY cefuroxime axetil 500 mg PO BID clonazepam 0.5 mg PO DAILY PRN losartan 100 mg PO DAILY melatonin 5 mg PO BEDTIME montelukast 10 mg PO BEDTIME phenazopyridine 200 mg PO TIDWM propranolol 80 mg PO BID sildenafil 50 mg PO DAILY PRN tamsulosin 0.4 mg PO DAILY vibegron (Gemtesa) 75 mg PO DAILY HPI HPI Comments History of Present Illness Details Kevin is a 67-year-old male who presents today for a telehealth follow-up. 04/07/23--Kevin is a 67-year-old male who was evaluated in the hospital for gross hematuria and urinary retention. He is a status post Cystoscopy evacuation of bladder clots and bladder biopsy done on 01/18/2023. He was started on Flomax in the hospital. He was last seen in the office on 02/16/2023 and started on Gemtesa. The patient states he feels the flomax is helping but is not sure the gemtesa is helping although he reports decrease in daytime bathroom visits and in nocturia from 3-4 times to 2-3 times. I discussed to watch caffeine intake, the patient states he has to have surgery on his left knee and his shoulder is also bothering him He wants to continue tamsulosin but stop the gemtesa to see if the med was actually helping. Review of chart: 01/18/2023---pathology report of bladder biopsy noted congestion and inflammation-- OV--02/16/23-- He states that he had been treated with multiple medications for the bladder symptoms which did not work. He states that the last thing discussed was botox bladder injection; however, the patient is concerned about the side effects of urinary retention. He has raised some concerns regarding erectile dysfunction. I want him to check with his cardio there are no contraindications in using Viagra. 04/07/23-- Plan: Hold Gemtesa 75 mg daily. He will call if he wants to restart med. Continue Flomax and follow-up in 6 Discussion today also included alternative treatment with sacral neuromodulation. [facility] Medical History Bronchitis Cough Cough due to bronchospasm Allergic rhinitis Paroxysmal atrial fibrillation LBBB (left bundle branch block) HTN (hypertension) Surgical History History of knee surgery History of hip surgery Family History Father Myocardial infarction Mother Diabetes Social History Household Members: None Housing: Condominium Do you presently have visiting nurse or other home services: No Alcohol intake: current Alcohol intake frequency: a few times a week Alcohol type: beer Patient Tobacco Use Status: Never used Tobacco Second Hand Smoke Exposure: No service: No Review of Systems Const All systems reviewed & are unremarkable except as noted in HPI and below Reports no additional complaints Eyes Reports no additional complaints ENT Reports no additional complaints Card Denies dyspnea Resp Denies cough and Denies dyspnea GI Reports no additional complaints Musc Reports no additional complaints Skin/Breast Denies rash and Denies unusual bruising Neuro Reports no additional complaints Psych Reports no additional complaints Endo Reports no additional complaints Hammad/Lymph Reports no additional complaints Aller/Immun Reports no additional complaints Assessment & Plan Assessment & Plan (1) BPH (benign prostatic hyperplasia): Code(s): N40.0 - Benign prostatic hyperplasia without lower urinary tract symptoms (2) Urinary frequency: Code(s): R35.0 - Frequency of micturition (3) Urinary urgency: Code(s): R39.15 - Urgency of urination Plan Plan: Hold Gemtesa 75 mg daily. He will call if he wants to restart med. Continue Flomax and follow-up in 6 Discussion today also included alternative treatment with sacral neuromodulation. Medications: Refilled tamsulosin 0.4 mg PO DAILY 90 caps 2RF Patient Instructions: The patient had an opportunity to ask questions regarding treatment plan. All questions were answered. No major barriers to understanding were identified. The patient expressed understanding and agreement with the above treatment plan. The patient is aware they should contact our office by phone for worsening of their current condition or the appearance of new symptoms. Compliance is encouraged with any medications and followup testing that is ordered. It is a privilege to be allowed the opportunity to participate in the urologic care of your patient. If you have any questions or concerns regarding treatment for the above conditions please do not hesitate to contact me. The office telephone contact is [phone]. This note is constructed in part using voice recognition software. While every effort has been made to ensure accuracy slot floor supervisor errors may have been included. Yours sincerely, Catina Bradshaw MD Telehealth Telehealth Location of provider rendering services: practice address Location of patient: address on file Patient Identification confirmed using: Name, : Yes Telehealth method: voice only Patient verbally consented to treatment: Yes Patient verbally consented to billing insurance company: Yes Patient informed of any privacy concerns related to visit: Yes Minutes spent on Phone/Video with Pt.: 16 Coding Level of Care Code Tele Est Pt Level 3 (65702) Diagnoses BPH (benign prostatic hyperplasia) N40.0 Urinary frequency R35.0 Urinary urgency R39.15
== END 2023-04-07 09:16 | disposition home or self-care (01) ==
LOC: HO.HUSH 08:30
PROVIDERS: PCP Family Medicine; Visit Provider Urology
DX: N40.0 Benign prostatic hyperplasia without lower urinary tract symptoms (principal); R35.0 Frequency of micturition; R39.15 Urgency of urination
CPT/HCPCS: 99442

== ENCOUNTER → 2023-04-07 08:30 | Outpatient (BNVA) | payer MEDICARE, SELFPAY | PROVIDERS: PCP Family Medicine; Visit Provider Urology ==

== ENCOUNTER 2023-06-28 14:52 | Outpatient (AMB) | payer MEDICARE, SELFPAY ==
[2023-06-28 14:57] VITALS: BP 120/80; PULSE 66; BMI 29.5
--- NOTE | 2023-06-28 14:57 | MHC.OFFVIS ---
Intake Vital Signs 06/28/23 14:57 Height 5 ft 11 in Weight 211 lb 10.3 oz BMI 29.5 BP 120/80 Blood Pressure Location Lt brachial Position Sitting Pulse 66 Intake Visit Reasons: overdue fu Intake Note: Follow-up with ekg feeling good Power Generating Plant Operator Required: No Allergies No Known Drug Allergies Allergy (Unknown, Verified 01/16/23 02:18) NONE Medication List - Last Reconciled 06/28/23 by Tyson Fragoso MD acetaminophen 1,000 mg PO Q6H PRN allopurinol 300 mg PO DAILY apixaban (Eliquis) 5 mg PO BID 90 days ascorbic acid (vitamin C) (Vitamin C) 1,000 mg PO DAILY cefuroxime axetil 500 mg PO BID clonazepam 0.5 mg PO DAILY PRN losartan 100 mg PO DAILY melatonin 5 mg PO BEDTIME montelukast 10 mg PO BEDTIME propranolol 80 mg PO BID sildenafil 50 mg PO DAILY PRN tamsulosin 0.4 mg PO DAILY vibegron (Gemtesa) 75 mg PO DAILY HPI HPI Comments History of Present Illness Details Mariano comes for follow-up after a long gap. He said since I last saw him he has had increased issues with arthritis and is scheduled to undergo knee replacement electively in November. He said with activity does get short of breath but he thinks this is related to lack of exercise and some weight gain. He denied any episodes of atrial fibrillation. Denies any prolonged palpitations. No orthopnea, PND, leg edema. No lightheadedness, syncope. Patient comes for regular follow-up of his atrial fibrillation as well as left bundle-branch block and high blood pressure. He has been taking all his medications regularly. No bleeding issues or neurologic events. [facility] Medical History Bronchitis Cough Cough due to bronchospasm Allergic rhinitis Paroxysmal atrial fibrillation LBBB (left bundle branch block) HTN (hypertension) Surgical History History of knee surgery History of hip surgery Family History Father Myocardial infarction Mother Diabetes Social History Household Members: None Housing: Condominium Do you presently have visiting nurse or other home services: No Alcohol intake: current Alcohol intake frequency: a few times a week Alcohol type: beer Patient Tobacco Use Status: Never used Tobacco Second Hand Smoke Exposure: No service: No Review of Systems Const Denies chills, Denies fatigue, Denies fever(s), Denies frequent falls, Denies weakness, Denies weight gain and Denies weight loss ENT Denies dizziness Card Denies chest pain, Denies leg edema, Denies lightheadedness, Denies palpitations, Denies dyspnea, Denies dyspnea on exertion, Denies orthopnea and Denies other (loss of consciousness) Resp Denies cough, Denies dyspnea and Denies dyspnea on exertion GI Denies hematochezia and Denies change in stool character Musc Denies abnormal gait, Denies muscle weakness, Denies numbness, Denies radiating pain into limb and Denies tingling Neuro Denies abnormal gait, Denies dizziness, Denies frequent falls, Denies numbness, Denies tingling and Denies weakness Endo Denies fatigue and Denies palpitations Physical Exam Vital Signs: Last Vital Signs Pulse 66 06/28/23 14:57 BP 120/80 06/28/23 14:57 BMI result Body Mass Index 29.5 Const General: cooperative, comfortable, alert and awake Nutritional Appearance: obese Orientation/consciousness: patient oriented x3 Limitations: no limitations Neck Neck: Yes trachea midline, Yes supple and Yes no JVD Chest Chest palpation & inspection: normal inspection of the chest Resp Effort & Inspection: normal respiratory effort Auscultation: clear to auscultation bilaterally Cardio Jugular venous distension: no JVD Palpation: normal PMI Rate: regular rate Rhythm: regular rhythm Heart sounds: S1 normal heart sound present and S2 normal heart sound present Skin General skin exam: no rashes or lesions noted Neuro General: patient oriented x3 and no focal motor deficits Extrem General: Yes no clubbing, cyanosis or edema Psych Appearance: grossly normal Affect: Anxious affect present Office Procedures EKG Details: EKG shows normal sinus rhythm with first-degree AV block with left bundle-branch block which is chronic 05166-[id number], Complete Assessment & Plan Assessment & Plan (1) Preoperative cardiovascular examination: Code(s): Z01.810 - Encounter for preprocedural cardiovascular examination Plan: Preoperative cardiovascular risk stratification this elderly gentleman to undergo intermediate risk surgery with limited exercise capacity. He has underlying risk factors of hypertension, atrial fibrillation which is controlled and left bundle-branch block. He will require further evaluation from vasodilating myocardial perfusion imaging to assess for myocardial ischemia of to further risk stratify for perioperative cardiovascular morbidity mortality. This was discussed with him. This will be scheduled at sometime in September. Will also obtain echocardiogram to evaluate LV systolic and diastolic function given his increased symptoms of shortness of breath. If these tests are within normal limits he is at low risk for perioperative cardiovascular morbidity mortality. This was discussed with him. He understands and agrees. Eliquis can be withheld for 2-3 days prior to surgery and resumed as soon as possible after surgery with associated risk. (2) Paroxysmal atrial fibrillation: Code(s): I48.0 - Paroxysmal atrial fibrillation Plan: Highly symptomatic paroxysmal atrial fibrillation although has remained suppressed on current therapy with propranolol. Continue the same. No need for antiarrhythmic drug therapy. Continue full oral anticoagulation, currently on Eliquis 5 mg b.i.d.. Avoidance of stimulants was discussed. Advised to monitor for symptoms and call me if he has worsening symptoms. Semi annual renal function test should be pursued. (3) LBBB (left bundle branch block): Code(s): I44.7 - Left bundle-branch block, unspecified Plan: Chronic left bundle-branch block without any obvious symptoms or signs of heart failure. Does have increased shortness of breath. Will obtain echocardiogram in September. If this is within normal limits echocardiogram should be probably done every 2-3 years as 1 in 6 patients who could develop LV systolic dysfunction. (4) HTN (hypertension): Code(s): I10 - Essential (primary) hypertension Plan: Hypertension which is currently well optimized advised to monitor blood pressure at home maintain a log. Goal blood pressure less than 130/84. Low-salt diet was discussed. Continue current therapy with losartan, propranolol. Importance of good blood pressure control was discussed. He understands agrees. Follow up in the clinic in 1 year's time, sooner p.r.n.. Thank you for allowing me to partake in his care Orders: Orders CA lexiscan stress w chente 3 Months I44.7 - Left bundle-branch block, unspecified, Z01.810 - Encounter for preprocedural cardiovascular examination CA echo transthoracic complete Today Medications: Changed From vibegron (Gemtesa) 75 mg PO DAILY 90 tabs 3RF To vibegron (Gemtesa) 75 mg PO DAILY Coding Level of Care Code Est Pt Level 4 (79686) Diagnoses Preoperative cardiovascular examination Z01.810 Paroxysmal atrial fibrillation I48.0 LBBB (left bundle branch block) I44.7 HTN (hypertension) I10 CPT Codes EKG - CPT: 10629-[id number], Complete ([id number])
== END 2023-06-28 15:31 | disposition home or self-care (01) ==
PROVIDERS: PCP Family Medicine; Visit Provider Internal Medicine Cardiovascular Disease
DX: Z01.810 Encounter for preprocedural cardiovascular examination (principal); I48.0 Paroxysmal atrial fibrillation; I44.7 Left bundle-branch block, unspecified; I10 Essential (primary) hypertension
CPT/HCPCS: 93010; 99214

== ENCOUNTER → 2023-06-28 14:52 | Outpatient (BNVA) | payer MEDICARE, SELFPAY | PROVIDERS: PCP Family Medicine; Visit Provider Internal Medicine Cardiovascular Disease | DX: Z01.810 Encounter for preprocedural cardiovascular examination (principal); I44.7 Left bundle-branch block, unspecified; I48.0 Paroxysmal atrial fibrillation; I10 Essential (primary) hypertension | CPT/HCPCS: 93005; 99212 ==

== ENCOUNTER 2023-10-03 08:35 | Outpatient (AMB) | payer MEDICARE, SELFPAY ==
--- NOTE | 2023-10-03 08:45 | MHC.OFFVIS ---
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: No Allergies No Known Drug Allergies Allergy (Unknown, Verified 10/03/23 08:48) NONE Medication List - Last Reconciled 10/03/23 by Catina Bradshaw MD acetaminophen 1,000 mg PO Q6H PRN allopurinol 300 mg PO DAILY apixaban (Eliquis) 5 mg PO BID 90 days ascorbic acid (vitamin C) (Vitamin C) 1,000 mg PO DAILY clonazepam 0.5 mg PO DAILY PRN losartan 100 mg PO DAILY melatonin 5 mg PO BEDTIME mirabegron ER (Myrbetriq) 50 mg PO DAILY montelukast 10 mg PO BEDTIME oxybutynin chloride ER 5 mg PO BEDTIME propranolol 80 mg PO BID sildenafil 50 mg PO DAILY PRN tamsulosin 0.4 mg PO DAILY HPI Comments Details: 10/03/23---Here for fu, complains of urinary frequency, LV 04/07/23, on tamsulosin, trial of gemtesa for LUTS of urinary freq with no improvement. Pt not interested in alternative therapies including sacral neuromodulation. Will try combination Myrbetriq and oxybutynin. Cont tamsulosin. PSA screening. Review of chart: 04/07/23--presents today for a telehealth follow-up. Kevin is a 67-year-old male who was evaluated in the hospital for gross hematuria and urinary retention. He is a status post Cystoscopy evacuation of bladder clots and bladder biopsy done on 01/18/2023. He was started on Flomax in the hospital. He was last seen in the office on 02/16/2023 and started on Gemtesa. The patient states he feels the flomax is helping but is not sure the gemtesa is helping although he reports decrease in daytime bathroom visits and in nocturia from 3-4 times to 2-3 times. I discussed to watch caffeine intake, the patient states he has to have surgery on his left knee and his shoulder is also bothering him He wants to continue tamsulosin but stop the gemtesa to see if the med was actually helping. 01/18/2023---pathology report of bladder biopsy noted congestion and inflammation-- 02/16/23--He states that he had been treated with multiple medications for the bladder symptoms which did not work. He states that the last thing discussed was botox bladder injection; however, the patient is concerned about the side effects of urinary retention. He has raised some concerns regarding erectile dysfunction. I want him to check with his cardio there are no contraindications in using Viagra. [facility] Medical History Bronchitis Cough Cough due to bronchospasm Allergic rhinitis Paroxysmal atrial fibrillation LBBB (left bundle branch block) HTN (hypertension) Surgical History History of knee surgery History of hip surgery Family History Father Myocardial infarction Mother Diabetes Social History Household Members: None [facility] Do you presently have visiting nurse or other home services: No Alcohol intake: current Alcohol intake frequency: a few times a week Alcohol type: beer Patient Tobacco Use Status: Never used Tobacco Second Hand Smoke Exposure: No service: No Review of Systems Const All systems reviewed & are unremarkable except as noted in HPI and below Reports no additional complaints Eyes Reports no additional complaints ENT Reports no additional complaints Card Reports no additional complaints Resp Reports no additional complaints GI Reports no additional complaints Reports as per HPI Musc Reports no additional complaints Skin/Breast Reports system reviewed and no additional complaints, except as documented Neuro Reports no additional complaints Psych Reports no additional complaints Endo Reports no additional complaints Hammad/Lymph Reports no additional complaints Aller/Immun Reports no additional complaints Results AMB Urinalysis, Automated UA Leukoctes 0 Armando/uL Last Edit by GE Mathews on 10/03/23 09:00 UA Nitrite Negative Last Edit by GE Mathews on 10/03/23 09:00 UA Urobilinogen 0.2 mg/dL Last Edit by GE Mathews on 10/03/23 09:00 UA Protein 15 mg/dL Last Edit by GE Mathews on 10/03/23 09:00 UA pH 6.0 Last Edit by GE Mathews on 10/03/23 09:00 UA Blood 0 Gabe/uL Last Edit by GE Mathews on 10/03/23 09:00 UA Specific [place] Level 10.15 Last Edit by GE Mathews on 10/03/23 09:00 UA Ketone Negative Last Edit by GE Mathews on 10/03/23 09:00 UA Bilirubin 0 mg/dL Last Edit by GE Mathews on 10/03/23 09:00 UA Glucose 0 mg/dL Last Edit by GE Mathews on 10/03/23 09:00 Results Reviewed Results Reviewed: Laboratory Last Values Urine pH (Auto) 6.0 10/03/23 08:59 Specific [place] Level (Auto) 10.15 10/03/23 08:59 Urine Protein (Auto) 15 mg/dL 10/03/23 08:59 Glucose (UA)(Auto) 0 mg/dL 10/03/23 08:59 Urine Ketones (Auto) Negative 10/03/23 08:59 Urine Blood (Auto) 0 Gabe/uL 10/03/23 08:59 Urine Nitrite (Auto) Negative 10/03/23 08:59 Urine Bilirubin (Auto) 0 mg/dL 10/03/23 08:59 Urine Urobilinogen (Auto) 0.2 mg/dL 10/03/23 08:59 Leukocyte Esterase (Auto) 0 Armando/uL 10/03/23 08:59 Assessment & Plan Assessment & Plan (1) Screening PSA (prostate specific antigen): Code(s): Z12.5 - Encounter for screening for malignant neoplasm of prostate Category: Medical (2) BPH loc w urin obs/LUTS: Code(s): N40.1 - Benign prostatic hyperplasia with lower urinary tract symptoms Category: Medical (3) Urinary frequency: Code(s): R35.0 - Frequency of micturition Category: Medical Plan Cont Flomax, PSA, oxybutynin, myrbetriq Orders: Orders AMB Urinalysis Automated Today Z13.9 - Encounter for screening, unspecified PSA,Total (Free>4and<10) Today Z12.5 - Encounter for screening for malignant neoplasm of prostate Medications: New mirabegron ER (Myrbetriq) 50 mg PO DAILY 30 tabs 5RF oxybutynin chloride ER 5 mg PO BEDTIME 30 tabs 5RF Patient Instructions: The patient had an opportunity to ask questions regarding treatment plan. The patient expressed understanding and agreement with the above treatment plan. The patient is aware they should contact our office by phone for worsening of their current condition or the appearance of new symptoms. Compliance is encouraged with any medications and followup testing that is ordered. It is a privilege to be allowed the opportunity to participate in the urologic care of your patient. If you have any questions or concerns regarding treatment for the above conditions please do not hesitate to contact me. The office telephone contact is [phone]. This note is constructed in part using voice recognition software. While every effort has been made to ensure accuracy ship yard electrical person errors may have been included. Yours sincerely, Catina Bradshaw MD Coding Level of Care Code Est Pt Level 4 (00629) Diagnoses Screening PSA (prostate specific antigen) Z12.5 BPH loc w urin obs/LUTS N40.1 Urinary frequency R35.0
== END 2023-10-03 09:42 | disposition home or self-care (01) ==
LOC: HO.HUSH 08:36
PROVIDERS: PCP Family Medicine; Visit Provider Urology
DX: Z12.5 Encounter for screening for malignant neoplasm of prostate (principal); N40.1 Benign prostatic hyperplasia with lower urinary tract symptoms; R35.0 Frequency of micturition; Z13.9 Encounter for screening, unspecified
CPT/HCPCS: 99214

== ENCOUNTER → 2023-10-03 08:35 | Outpatient (BNVA) | payer MEDICARE, SELFPAY | PROVIDERS: PCP Family Medicine; Visit Provider Urology | DX: N40.1 Benign prostatic hyperplasia with lower urinary tract symptoms (principal); R35.0 Frequency of micturition; N52.9 Male erectile dysfunction, unspecified; Z79.01 Long term (current) use of anticoagulants; Z12.5 Encounter for screening for malignant neoplasm of prostate | CPT/HCPCS: 81003; 99212 ==

== ENCOUNTER → 2023-10-10 07:39 | Outpatient (REF) | payer MEDICARE, SELFPAY ==
--- NOTE | ~2023-10-10 | NM_ITS ---
Lexiscan Myocardial perfusion study Indication: Shortness of breath, left bundle branch block Technique: The patient was brought in for a Lexiscan perfusion study on 10/10/2023 and was injected 0.4 mg of Lexiscan intravenously. Within a minute of this injection 35 mCi of sestamibi was given intravenously. Images were obtained using the SPECT gamma camera interlaced with the gating device. Images were obtained in supine position. Resting perfusion study was performed on 10/13/2023. Patient was administered 35 mCi of sestamibi intravenously at rest. Images were then obtained in supine position. Images were processed with the software and compared side to side in short axis, horizontal long axis and vertical long axis views. Total DLP 129mGy-cm. Findings: Raw acquisition reviewed. Arms by the patient's side. The stress perfusion study showed no significant perfusion abnormality. Both uncorrected as well as CT attenuation corrected images were reviewed. The gated study shows normal LV systolic function with calculated LVEF of 62%. LV cavity is normal in size. The gated study shows normal wall thickening and contraction of segments. Resting study shows no significant perfusion abnormality. Gating at rest reveals normal wall motion with ejection fraction at 65%. The findings are consistent with no clear reversible or fixed perfusion abnormality. NM/NM chente perf SPECT rest & str Impression: 1. Myocardial perfusion imaging study shows normal myocardial perfusion. 2. Gated LVEF is 62% during stress and 65% during rest. 3. Transient ischemic dilatation not present. EKG component of the test reported separately.
--- NOTE | 2023-10-10 07:52 | CA_ITS ---
Transthoracic Echocardiogram Patient (Last, First, Middle): Kevin Vaughn J Gender: Male Date of : 1955 Age: 67 Procedure Date: 10/10/2023 Procedure Type: Transthoracic Echocardiogram Location: OP Height: 180.34 cm Weight: 92.53 kg BSA: 2.13 m2 Heart Rate: bpm BP: 122 / 80 mmHg Crossband Layer: Referring MD: Tyson Fragoso MD Symptoms: I44.7 Z01.810 I48.0 I10 HTN PAF L BBB PRE OP Study Quality: Adequate ECG Rhythm: Sinus, LBBB Conclusions: - The left ventricular systolic function is low normal. The visually estimated ejection fraction is between 50-55%. - No obvious valvular pathology seen on this study. Findings Procedure Information Contrast agent, definity, is being given per protocol without apparent complications. Left Ventricle Normal left ventricular cavity size. There is mildly increased left ventricular wall thickness. The left ventricular systolic function is low normal. The visually estimated ejection fraction is between 50-55%. There is no evidence of regional wall motion abnormalities. There is paradoxical septal motion consistent with a left bundle branch block. Evidence suggests grade I (mild) diastolic dysfunction. There is moderate septal asymmetric hypertrophy. Right Ventricle Normal right ventricular cavity size and systolic function. Atria Both atria are normal in size. Aortic Valve There is a normal trileaflet aortic valve. There is no aortic valve stenosis. There is no aortic valve regurgitation. Mitral Valve The mitral valve appears normal. There is no mitral valve regurgitation. There is no mitral valve stenosis. Pulmonic Valve The pulmonic valve is likely normal. Tricuspid Valve There is trace tricuspid valve regurgitation. There is no evidence of pulmonary hypertension. Great Vessels The asc aorta is normal in size. Venous The inferior vena cava is normal in size and collapses greater than 50% with inspiration. Pericardium/Pleural There is no evidence of pericardial effusion. Prior Study Comparison No significant change compared to prior study dated: 09/07/2022. Slightly variable LVEF due to LBBB and difficulty in EF calculation, but overall doubt any significant change. Recommendations, Care & Conclusions No obvious valvular pathology seen on this study. Measurements 2D Linear Measurements IVSd: 1.56 0.6-0.9/0.6-1.0 cm LVIDd: 4.37 3.9-5.3/4.2-5.9 cm LVIDd Index: 2.05 2.4-3.2/2.2-3.1 cm/m2 LVIDs: 2.78 2.0-3.6 cm LVPWd: 1.28 0.7-1.1 cm Ao Root: 3.70 2.1-3.5 cm LA Diam: 3.50 2.7-3.8/3.0-4.0 cm LAIDs Index: 1.64 1.5-2.3 cm/m2 LV Mass: 303.01 67-162/88-224 g LV Mass Index: 142.26 43-95/49-115 g/m2 LVOT Diam: 2.20 3.0+(-)1.3 cm 2D Systolic Function EF 4C: 58.00 >55% EF 2C: 58.00 >55% EF BiP: 57.10 >55% Mitral Valve MV Pk E: 0.64 MV PK A: 1.00 MV Decel Time: 195.00 E/A: 0.60 E'Lateral: 7.07 E'Medial: 4.57 E/E' Med: 14.00 E/E' Lat: 9.00 PHT: 57.00 MVA PHT: 3.86 Decel Colbert: 3.27 Aortic Valve AoV Pk Anibal: 1.13 AoV Mn Anibal: 0.77 AoV VTI: 0.26 AoV Pk Grad: 5.00 Aov Mn Grad: 3.00 CHIARA Cont.VTI: 2.86 LVOT LVOT Pk Anibal: 0.82 LVOT Mn Anibal: 0.54 LVOT VTI: 0.20 LVOT Pk Grad: 3.00 LVOT Mn Grad: 1.00 LVOT Diam: 2.20 LVOT Area: 3.80 Diastolic Function MV Pk E: 0.64 MV Pk A: 1.00 E/A: 0.60 E'Medial: 4.57 E/E' Med: 14.00 E' Laterial: 7.07 E/E' Lat: 9.00 Right Ventricle TAPSE (mm): 21.00 TVS' Anibal: 9.00 Tricuspid Valve TR Pk Anibal: 2.26 TR Pk Grad: 20.00 RA Press: 3.00 RVSP: 23.00 Great Vessels Aorta Ao Root-2D: 3.70 2.0-3.7 cm Ao Asc: 3.50 2.1-3.4 cm Pulmonary Valve PV Pk Anibal: 0.86 Peak PV Grad: 3.00 Updated in Other Vendor System with Status of Final Kanu Holman MD electronically signed on 10/11/2023 11:57:53 AM with status of Final
--- NOTE | 2023-10-10 07:52 | CA_ITS ---
Acquisition Time: 2023-10-10 09:25:06 Total Exercise Time: 00:02:00 Test Indications: Dyspnea Medications: Protocol: LEXISCAN Max HR: 090 BPM 59% of Pred: 151 BPM Max BP: 150/080 mmHG Max Work Load: 1.0 METS Pharmacological stress test with Lexiscan injection while sittting still, without anginal symptoms, without arrhythmias, with normotensive response to injection, with nondiagnoisitic EKGs. Aminophylline 75mg IVP given to reverse Lexiscan. Post Aminophylline patient reported nauseous and dizzy and got bradycardic 30s. Put into laying position and moving legs. Resolved and heart rate returned to the 80s. Gait steady and sympoms completely resovled. Nuclear images pending. Test reviewed with Dr. Good. Referred By: Tyson Fragoso Overread By: Keke Castillo
== END ==
LOC: HO.CARD 07:39
PROVIDERS: PCP Family Medicine; Visit Provider Internal Medicine Cardiovascular Disease
DX: Z01.810 Encounter for preprocedural cardiovascular examination (principal); I44.7 Left bundle-branch block, unspecified; I48.0 Paroxysmal atrial fibrillation
CPT/HCPCS: 78452; 93017; 93306; A9500; J0280; J2785; Q9957

== ENCOUNTER → 2023-10-10 07:52 | Outpatient (BNV) | payer MEDICARE, SELFPAY | PROVIDERS: PCP Family Medicine; Visit Provider Nurse Practitioner | DX: R06.02 Shortness of breath (principal) | CPT/HCPCS: 78452; 93016; 93018; 93350; 93352 ==

== ENCOUNTER 2023-10-26 09:22 | Outpatient (AMB) | payer MEDICARE, SELFPAY ==
[2023-10-26 09:37] VITALS: BP 128/72; PULSE 63
--- NOTE | 2023-10-26 09:37 | A.OFFVIS_ITS ---
Vital Signs 10/26/23 09:37 Height 5 ft 11 in BP 128/72 Blood Pressure Location Lt brachial Position Sitting Pulse 63 Pulse Source Monitor Intake Visit Reasons: NE ortho/ Lt knee replacement/8-6 Allergies No Known Drug Allergies Allergy (Unknown, Verified 10/03/23 08:48) NONE lexiscan Adverse Reaction (Uncoded 10/10/23 09:58) bradycardia, dizziness Medication List - Last Reconciled 10/26/23 by Tyson Fragoso MD acetaminophen 1,000 mg PO Q6H PRN allopurinol 300 mg PO DAILY apixaban (Eliquis) 5 mg PO BID 90 days ascorbic acid (vitamin C) (Vitamin C) 1,000 mg PO DAILY clonazepam 0.5 mg PO DAILY PRN losartan 100 mg PO DAILY mirabegron ER (Myrbetriq) 50 mg PO DAILY montelukast 10 mg PO BEDTIME oxybutynin chloride ER 5 mg PO BEDTIME propranolol 80 mg PO BID sildenafil 50 mg PO DAILY PRN tamsulosin 0.4 mg PO DAILY HPI Comments Details: Mariano comes for follow-up. Doing well overall. However during stress testing he developed vagal response which was treated promptly. He did well. He has never had similar response in the past. He was concerned about it. His myocardial perfusion imaging was within normal limits. His echocardiogram shows low normal LVEF of 50-55%. He denies any heart failure symptoms. Denies any anginal symptoms. Scheduled to undergo knee surgery and he has postpone it to knee. Limiting his activity level. No episodes of atrial fibrillation. No heart failure symptoms. [facility] Medical History Bronchitis Cough Cough due to bronchospasm Allergic rhinitis Paroxysmal atrial fibrillation LBBB (left bundle branch block) HTN (hypertension) Surgical History History of knee surgery History of hip surgery Family History Father Myocardial infarction Mother Diabetes Social History Household Members: None Housing: Condominium Do you presently have visiting nurse or other home services: No Alcohol intake: current Alcohol intake frequency: a few times a week Alcohol type: beer Patient Tobacco Use Status: Never used Tobacco Second Hand Smoke Exposure: No service: No Review of Systems Const Denies weakness ENT Denies dizziness Card Denies chest pain, Denies chest pain with activity, Denies syncope, Denies rapid heart rate, Denies pedal edema, Denies edema, Denies leg edema, Denies lightheadedness, Denies palpitations, Denies dyspnea, Denies dyspnea on exertion and Denies orthopnea Resp Denies cough, Denies dyspnea and Denies dyspnea on exertion GI Denies hematochezia and Denies change in stool character Musc Denies abnormal gait, Denies muscle cramps, Denies muscle weakness, Denies numbness, Denies radiating pain into limb and Denies tingling Neuro Denies abnormal gait, Denies dizziness, Denies syncope, Denies numbness, Denies tingling and Denies weakness Endo Denies palpitations Physical Exam Vital Signs: Last Vital Signs Pulse 63 10/26/23 09:37 BP 128/72 10/26/23 09:37 Const General: cooperative, comfortable, alert and awake Nutritional Appearance: obese Orientation/consciousness: patient oriented x3 Limitations: no limitations Neck Neck: Yes trachea midline, Yes supple and Yes no JVD Chest Chest palpation & inspection: normal inspection of the chest Resp Effort & Inspection: normal respiratory effort Auscultation: clear to auscultation bilaterally Cardio Jugular venous distension: no JVD Palpation: normal PMI Rate: regular rate Rhythm: regular rhythm Heart sounds: S1 normal heart sound present and S2 normal heart sound present Skin General skin exam: no rashes or lesions noted Neuro General: patient oriented x3 and no focal motor deficits Extrem General: Yes no clubbing, cyanosis or edema Psych Appearance: grossly normal Affect: Anxious affect present Office Procedures EKG Details: EKG shows normal sinus rhythm with left bundle-branch block [id number], Complete Assessment & Plan Assessment & Plan (1) Preoperative cardiovascular examination: Code(s): Z01.810 - Encounter for preprocedural cardiovascular examination Plan: Preoperative cardiovascular risk stratification in this elderly gentleman with multiple risk factors for coronary disease undergoing intermediate risk surgery with right knee replacement. Recent myocardial perfusion imaging within normal limits. Echocardiogram showing low normal LV ejection fraction. No symptoms of angina with no signs or symptoms of heart failure. He is currently optimized to undergo the procedure with low risk for perioperative cardiovascular morbidity mortality. His Eliquis can be withheld for 2-3 days prior to the procedure as required by the surgeon and resume as soon as possible after surgery. Continue his propranolol and losartan in the perioperative time. (2) Paroxysmal atrial fibrillation: Code(s): I48.0 - Paroxysmal atrial fibrillation Category: Medical Plan: Paroxysmal atrial fibrillation which has remained suppressed on propranolol therapy. Has done well with rhythm control approach will continue pursue rhythm control approach. No indication for antiarrhythmic drug therapy at this point time. Avoidance of stimulants was discussed. Continue full oral anticoagulation, currently on Eliquis 5 mg b.i.d.. Semi annual renal function test should be pursued. (3) LBBB (left bundle branch block): Code(s): I44.7 - Left bundle-branch block, unspecified Category: Medical Plan: Chronic left bundle-branch block. No interventions required. Echo shows low normal LVEF of 50-55%. Echo every 2 years to evaluate for development of cardiomyopathy process which may require alternative treatment. Signs and symptoms of heart failure were discussed. Will follow up in the clinic in 1 year's time, sooner p.r.n.. Thank you for allowing me to partake in his care Orders: Orders US carotid duplex BI Today I65.29 - Occlusion and stenosis of unspecified carotid artery Coding Level of Care Code Est Pt Level 4 (84463) Diagnoses Preoperative cardiovascular examination Z01.810 Paroxysmal atrial fibrillation I48.0 LBBB (left bundle branch block) I44.7 CPT Codes EKG - CPT: [id number], Complete ([id number])
== END 2023-10-26 10:02 | disposition home or self-care (01) ==
PROVIDERS: PCP Family Medicine; Visit Provider Internal Medicine Cardiovascular Disease
DX: I48.0 Paroxysmal atrial fibrillation (principal); I44.7 Left bundle-branch block, unspecified; Z01.810 Encounter for preprocedural cardiovascular examination
CPT/HCPCS: 93010; 99214

== ENCOUNTER → 2023-10-26 09:22 | Outpatient (BNVA) | payer MEDICARE, SELFPAY | PROVIDERS: PCP Family Medicine; Visit Provider Internal Medicine Cardiovascular Disease | DX: Z01.810 Encounter for preprocedural cardiovascular examination (principal); I48.0 Paroxysmal atrial fibrillation; I44.7 Left bundle-branch block, unspecified | CPT/HCPCS: 93005; 99212 ==

== ENCOUNTER 2023-11-04 15:19 | Outpatient (REF) | payer MEDICARE, SELFPAY ==
--- NOTE | ~2023-11-04 | US_ITS ---
EXAMINATION: US EXTRACRANIAL CAROTID DUPLEX, BILATERAL CLINICAL INFORMATION: Occlusion and stenosis of carotid artery COMPARISON: None available. TECHNIQUE: Real-time ultrasound and Doppler techniques (integrating B-mode 2-D vascular images, Doppler spectral analysis and color-flow Doppler imaging) were utilized to interrogate the extracranial carotid arteries, the vertebral arteries and proximal subclavian arteries bilaterally. The degree of stenosis is determined by criteria similar to NASCET. FINDINGS: Right Side: 1. There is mild atherosclerotic plaque seen in the bifurcation/proximal ICA region. 2. The common carotid artery PSV proximally is 117 cm/s and distally 98.1 cm/s. 3. The proximal internal carotid artery velocities are 76.8 cm/s systolic and 24.3 cm/s diastolic. 4. The proximal external carotid artery PSV is 177 cm/s. 5. The vertebral artery shows antegrade flow. 6. The subclavian artery waveforms are normal. Left Side: 1. There is mild atherosclerotic plaque seen in the bifurcation/proximal ICA region. 2. The common carotid artery PSV proximally is 126 cm/s and distally 114 cm/s. 3. The proximal internal carotid artery velocities are 105 cm/s systolic and 34.7 cm/s diastolic. 4. The proximal external carotid artery PSV is 190 cm/s. 5. The vertebral artery shows antegrade flow. 6. The subclavian artery waveforms are normal. US/US carotid duplex BI IMPRESSION: 1. RIGHT: Minimal, non-hemodynamically significant stenosis of the proximal right internal carotid artery corresponding to a 0-49% stenosis by velocity criteria. 2. LEFT: Minimal, non-hemodynamically significant stenosis of the proximal left internal carotid artery corresponding to a 0-49% stenosis by velocity criteria.
== END 2023-11-04 15:20 | disposition home or self-care (01) ==
LOC: HO.US 15:19
PROVIDERS: PCP Family Medicine Sports Medicine; Visit Provider Internal Medicine Cardiovascular Disease
DX: I65.23 Occlusion and stenosis of bilateral carotid arteries (principal)
CPT/HCPCS: 93880

== ENCOUNTER 2024-04-02 14:10 | Outpatient (AMB) | payer MEDICARE, SELFPAY ==
--- NOTE | 2024-04-02 14:23 | A.OFFVIS_ITS ---
Intake Visit Reasons: 6m follow up Intake Note: Patient is Present for Follow Up PVR/Med Review Urology Medication: Sildenafil, Tamsulosin, Oxybutynin, Myrbetriq Antibiotic Allergies: None Blood Thinners:Eliquis Last PVR:0ML Todays PVR: 20ml Symptoms: Patient states that he sees very little improvement with Oxybutynin and Myrbetriq, Reports that he is still having severe frequency, reports that he gets up 4 times during the night. Patient states that the only improvement he does see is with urgency he has more time to make it to the bathroom. 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 He has lower urinary tract symptoms of urgency and nocturia. He is currently on combination medication of tamsulosin Myrbetriq and oxybutynin. He did not complete blood work for PSA screening as yet. He states that he is still getting up frequently but he is able to make it to the bathroom without leaking on himself. Urinalysis is negative bladder scan PVR 20 mL Review of chart: 10/03/23---Here for fu, complains of urinary frequency, LV 04/07/23, on tamsulosin, trial of gemtesa for LUTS of urinary freq with no improvement. Pt not interested in alternative therapies including sacral neuromodulation. Will try combination Myrbetriq and oxybutynin. Cont tamsulosin. PSA screening. 04/07/23--presents today for a telehealth follow-up. Kevin is a 67-year-old male who was evaluated in the hospital for gross hematuria and urinary retention. He is a status post Cystoscopy evacuation of bladder clots and bladd er biopsy done on 01/18/2023. He was started on Flomax in the hospital. He was last seen in the office on 02/16/2023 and started on Gemtesa. The patient states he feels the flomax is helping but is not sure the gemtesa is helping although he reports decrease in daytime bathroom visits and in nocturia from 3-4 times to 2-3 times. I discussed to watch caffeine intake, the patient states he has to have surgery on his left knee and his shoulder is also bothering him He wants to continue tamsulosin but stop the gemtesa to see if the med was actually helping. 01/18/2023---pathology report of bladder biopsy noted congestion and inflammation-- 02/16/23--He states that he had been treated with multiple medications for the bladder symptoms which did not work. He states that the last thing discussed was botox bladder injection; however, the patient is concerned about the side effects of urinary retention. He has raised some concerns regarding erectile dysfunction. I want him to check with his cardio there are no contraindications in using Viagra. [facility] Medical History Bronchitis Cough Cough due to bronchospasm Allergic rhinitis Paroxysmal atrial fibrillation LBBB (left bundle branch block) HTN (hypertension) Surgical History History of knee surgery History of hip surgery Family History Father Myocardial infarction Mother Diabetes Social History Household Members: None Housing: Condominium Do you presently have visiting nurse or other home services: No Alcohol intake: current Alcohol intake frequency: a few times a week Alcohol type: beer Patient Tobacco Use Status: Never used Tobacco Second Hand Smoke Exposure: No service: No Office Procedures Post Void Residual Post Residual Void Post Void Residual (PVR): 20 [id number] Void Residual by ultrasound Results AMB Urinalysis, Automated UA Leukoctes 0 Armando/uL Last Edit by JOHAN Candelaria on 04/02/24 14:50 UA Nitrite Negative Last Edit by JOHAN Candelaria on 04/02/24 14:50 UA Urobilinogen 0.2 mg/dL Last Edit by JOHAN Candelaria on 04/02/24 14:5 0 UA Protein 15 mg/dL Last Edit by JOHAN Candelaria on 04/02/24 14:50 UA pH 6.0 Last Edit by JOHAN Candelaria on 04/02/24 14:50 UA Blood 0 Gabe/uL Last Edit by Fani Rodriguez, RMA on 04/02/24 14:50 UA Specific [place] 1.020 Last Edit by Fani Rodriguez, RMA on 04/02/24 14: 50 UA Ketone Negative Last Edit by Fani Rodriguez, RMA on 04/02/24 14:50 UA Bilirubin 0 mg/dL Last Edit by Fani Rodriguez, RMA on 04/02/24 14:50 UA Glucose 0 mg/dL Last Edit by Fani Rodriguez, RMA on 04/02/24 14:50 Results Reviewed Results Reviewed: Laboratory Last Values Urine pH (Auto) 6.0 04/02/24 14:28 Specific [place] (Auto) 1.020 04/02/24 14:28 Urine Protein (Auto) 15 mg/dL 04/02/24 14:28 Glucose (UA)(Auto) 0 mg/dL 04/02/24 14:28 Urine Ketones (Auto) Negative 04/02/24 14:28 Urine Blood (Auto) 0 Gabe/uL 04/02/24 14:28 Urine Nitrite (Auto) Negative 04/02/24 14:28 Urine Bilirubin (Auto) 0 mg/dL 04/02/24 14:28 Urine Urobilinogen (Auto) 0.2 mg/dL 04/02/24 14:28 Leukocyte Esterase (Auto) 0 Armando/uL 04/02/24 14:28 Assessment & Plan Assessment & Plan Orders: Orders AMB Urinalysis Automated Today Z13.9 - Encounter for screening, unspecified AMB Post Void Residual by ultrasound Today R39.15 - Urgency of urination Coding CPT Codes Post Residual Void - PVR CPT Code: 39812-Wlcg Void Residual by ultrasound ([id number])
== END 2024-04-02 15:17 | disposition home or self-care (01) ==
PROVIDERS: PCP Family Medicine; Visit Provider Urology
DX: Z13.9 Encounter for screening, unspecified (principal)

== ENCOUNTER → 2024-04-02 14:10 | Outpatient (BNVA) | payer MEDICARE, SELFPAY | PROVIDERS: PCP Family Medicine; Visit Provider Urology | DX: N40.1 Benign prostatic hyperplasia with lower urinary tract symptoms (principal); R35.1 Nocturia; N32.81 Overactive bladder; Z12.5 Encounter for screening for malignant neoplasm of prostate; Z79.899 Other long term (current) drug therapy | CPT/HCPCS: 51798; 81003; 99212 ==

== ENCOUNTER 2024-04-30 09:18 | Emergency (ER) | payer MEDICARE, SELFPAY ==
--- NOTE | ~2024-04-30 | XR_ITS ---
EXAMINATION: XR SHOULDER 2 OR MORE VIEWS LEFT HISTORY: left shoulder pain COMPARISON: There are no prior studies available for comparison. FINDINGS: Three views of the left shoulder are submitted. Osseous mineralization is normal. There is no fracture or dislocation. There is moderate to severe osteoarthritis of the AC joint with joint space narrowing and osteophyte formation. There is mild osteoarthritis of the glenohumeral joint. Amorphous calcifications adjacent to the greater tuberosity of the humerus is likely related to the rotator cuff. XR/XR shoulder LT min 2V IMPRESSION: Osteoarthritis of the left shoulder as described. Probable rotator cuff calcification. Electronically signed by: Floyd Collins MD 04/30/2024 10:51 AM CORDELIA
[2024-04-30 09:45] VITALS: BP 99/57; PULSE 63; RESP 18; TEMP 36.1; O2SAT 98; BMI 28.6
--- NOTE | 2024-04-30 09:50 | ECG_ITS ---
Test Reason : dizzy Blood Pressure : */* mmHG Vent. Rate : 56 BPM Atrial Rate : 56 BPM P-R Int : 208 ms QRS Dur : 140 ms QT Int : 466 ms P-R-T Axes : 3 -44 44 degrees QTcB Int : 449 ms Sinus bradycardia Left axis deviation Left bundle branch block Abnormal ECG When compared with ECG of 26-Feb-2022 14:50, No significant change was found Referred By: Generic ED Physician Electronically Signed By: HARVINDER WASHINGTON
[2024-04-30 10:30] LABS: MANUAL DIFF FLAG NO
[2024-04-30 10:32] LABS: Basophils Absolute Auto 0.1 X10*3/uL (0.0-0.2); Basophils Percent Auto 0.7 % (0-2); Eosinophils Absolute Auto 0.4 X10*3/uL (0.0-0.4); Eosinophils Percent Auto 5.5 % (0-4); Hematocrit 39.3 % (42.0-52.0); Hemoglobin 12.9 g/dl (14.0-18.0); Imm Gran Abs Auto 0.06 X10*3/uL (0.00-0.03); Imm Gran Pct Auto 0.8 % (0.0-0.4); Lymphocytes Absolute Auto 1.4 X10*3/uL (1.2-4.9); Lymphocytes Percent Auto 18.9 % (20-40); Mean Corpuscular HGB Conc 32.8 g/dl (31.0-36.0); Mean Corpuscular Hemoglobin 27.7 pg (27.0-33.0); Mean Corpuscular Volume 84.5 fL (80.0-98.0); Mean Platelet Volume 8.7 fL (9.4-12.4); Neutrophils Absolute Auto 4.6 x10*3/uL (2.0-8.3); Neutrophils Percent Auto 61.1 % (45-73); Platelet Count 204 X10*3/uL (160-400); Red Blood Count 4.65 X10*6/uL (4.60-5.80); Red Cell Distribution Width 14.6 % (11.0-16.0); White Blood Count 7.6 X10*3/uL (4.8-10.8)
[2024-04-30 10:50] LABS: Alanine Aminotransferase 24 U/L (0-40); Albumin Level 4.1 g/dL (3.5-5.0); Alkaline Phosphatase 64 U/L (39-117); Anion Gap 10 (12-20); Aspartate Amino Transferase 23 U/L (5-37); Bilirubin Total 0.5 mg/dL (0.0-1.0); Blood Urea Nitrogen 34 mg/dL (9-16); Calcium 9.7 mg/dL (8.4-10.2); Carbon Dioxide 24 mmol/L (22-29); Chloride 107 mmol/L (96-108); Creatinine Clr Calc Pharmacy 50.6; Estimated Glomerular Filt Rate 44; Glucose Random 90 mg/dL (60-115); Potassium 4.7 mmol/L (3.3-5.1); Sodium 136 mmol/L (135-145); Total Protein 7.7 g/dL (6.5-8.0)
[2024-04-30 10:59] LABS: Troponin-I High Sensitivity 12.5 ng/L (<3.5-35.0)
--- NOTE | 2024-04-30 13:03 | ED_ITS ---
HPI - General Adult General Chief complaint: General Medical Stated complaint: took medication feels funny Time Seen by Provider: 04/30/24 13:03 Source: patient Mode of arrival: ambulatory Limitations: no limitations History of Present Illness ED Provider: Linda Ornelas PA-C HPI narrative: Patient is a 68 year old assigned male at with a history of paroxsysmal atrial fib on anti-coags, LBBB, HTN, and chronic left shoulder pain presenting to the emergency department today with dizziness after taking a muscle relaxer and chronic left shoulder pain. Patient states that he normally takes his muscle relaxer at night and today he took it in the morning, feeling dizzy after doing so. Patient states that his left shoulder chronically hurts and he follows with [facility] for it. Patient denies any lightheadedness, abdominal pain, nausea, vomiting, fever, chills, blurry vision, double vision, loss of vision, chest pain, difficulty breathing, shortness of breath, back pain, night sweats, pain with urination, increased urinary frequency, increased urinary urgency, blood in his urine or stool, syncope or a near syncopal episode, recent trauma or falls, bowel incontinence, bladder incontinence, or any other complaints at this time. Exacerbating factors: none Associated symptoms: denies other symptoms Treatments prior to arrival: none Related Data Home Medications ?Medication ?Instructions ?Recorded ?Confirmed allopurinol 300 mg tablet 300 mg PO DAILY 04/08/20 10/26/23 clonazepam 0.5 mg tablet 0.5 mg PO DAILY PRN Anxiety 04/08/20 10/26/23 propranolol 80 mg tablet 80 mg PO BID 04/29/22 10/26/23 losartan 50 mg tablet 100 mg PO DAILY 09/09/22 10/26/23 acetaminophen 500 mg tablet 1,000 mg PO Q6H PRN Pain 01/16/23 10/26/23 ascorbic acid (vitamin C) 500 mg 1,000 mg PO DAILY 01/16/23 10/26/23 chewable tablet (Vitamin C) Previous Rx's ?Medication ?Instructions ?Recorded montelukast 10 mg tablet 10 mg PO BEDTIME for asthma #90 03/25/22 tabs apixaban 5 mg tablet (Eliquis) 5 mg PO BID 90 days #180 tabs 03/22/23 sildenafil 50 mg tablet 50 mg PO DAILY PRN sexual activity 12/28/23 #30 tabs mirabegron 50 mg tablet,extended 50 mg PO DAILY #90 tabs 04/02/24 release 24 hr (Myrbetriq) oxybutynin chloride 5 mg 5 mg PO BEDTIME #90 tabs 04/02/24 tablet,extended release 24 hr tamsulosin 0.4 mg capsule 0.4 mg PO DAILY #90 caps 04/02/24 Allergies Allergy/AdvReac Type Severity Reaction Status Date / Time No Known Drug Allergies Allergy Unknown NONE Verified 04/30/24 09:48 lexiscan AdvReac bradycardia, Uncoded 04/02/24 14:28 dizziness Review of Systems 2 Constitutional: Constitutional: Reports no additional constitutional complaints, Denies chills, Denies fever(s) and Denies night sweats Eyes: Eyes: Reports no additional eye complaints, Denies blurry vision, Denies change in vision, Denies diplopia, Denies eye discharge, Denies loss of vision and Denies eye pain ENT: Reports dizziness Cardiovascular: Cardiovascular: Reports no additional cardiovascular complaints, Denies chest pain, Denies lightheadedness, Denies Loss of Consciousness and Denies dyspnea Respiratory: Respiratory: Reports no additional respiratory complaints and Denies dyspnea Gastrointestinal: Gastrointestinal: Reports no additional gastrointestinal complaints, Denies abdominal pain, Denies melena, Denies hematochezia, Denies change in bowel habits and Denies change in stool character Genitourinary: Genitourinary: Reports no additional male genitourinary complaints, Denies hematuria, Denies oliguria, Denies difficulty urinating, Denies dysuria, Denies urinary frequency, Denies urinary hesitancy, Denies urinary incontinence and Denies urinary urgency Musculoskeletal: Musculoskeletal: Reports no additional musculoskeletal complaints, Denies numbness and Denies tingling Comments: chronic left shoulder pain Neurologic: Reports dizziness, Denies loss of vision, Denies numbness and Denies tingling Psychiatric: Psychiatric: Reports no additional psychiatric complaints Endocrine: Endocrine: Reports no additional endocrine complaints Hematologic/Lymphatic: Hematologic/Lymphatic: Reports no additional hematologic/lymphatic complaints Allergic/Immunologic: Allergic/Immunologic: Reports no additional allergic/immunologic complaints PMFSH Past Medical History Attestation statement: The following information was validated with the patient. Source: old records reviewed and nursing notes reviewed Medical History Bronchitis Cough Cough due to bronchospasm Allergic rhinitis Paroxysmal atrial fibrillation LBBB (left bundle branch block) HTN (hypertension) Surgical History History of knee surgery History of hip surgery Family History Family History Father Myocardial infarction Mother Diabetes Social History Social History Household Members: None [facility] Do you presently have visiting nurse or other home services: No Alcohol intake: current Alcohol intake frequency: a few times a week Alcohol type: beer Patient Tobacco Use Status: Never used Tobacco Second Hand Smoke Exposure: No Advance Directives: No Advance Directives Information Provided: Yes Do you have a plan to hurt others: No Plan service: No Physical Exam ED Vital Signs: Vital Signs - 24 hr 04/30/24 09:45 04/30/24 13:08 Temperature 96.9 F 96.9 F Pulse Rate 63 63 Respiratory Rate 18 18 Blood Pressure 99/57 L 99/57 L Pulse Oximetry 98 98 Oxygen Delivery Method Room Air Room Air BMI result Body Mass Index 28.6 Const General: cooperative, no acute distress, alert and awake Nutritional Appearance: well nourished Orientation/consciousness: patient oriented x3 Limitations: no limitations HENMT Head: Yes normal to inspection and Yes atraumatic Ears: hearing grossly normal bilaterally and external ears normal General nose exam: Normal external nose present, no nasal discharge noted and no epistaxis Face and sinus: Yes normal facial exam, No abrasion and No laceration Mouth: Normal oral and palatal mucosa present, no drooling and no muffled voice Eyes General: appearance normal, both eyes and all related structures Periorbital: periorbital findings normal Eyelids: Yes eyelids normal Conjunctivae: conjunctivae normal Pupils: Equal, round and reactive pupils present EOM: EOMs intact bilaterally Neck Neck: Yes normal visual inspection, Yes full ROM and Yes no lymphadenopathy Chest Chest palpation & inspection: normal inspection of the chest Resp Effort & Inspection: normal respiratory effort and able to speak in complete sentences GI Inspection: Yes normal to inspection Neuro General: patient oriented x3 and moves all extremities Cranial nerves: Yes Equal, round and reactive pupils present Cognition (Neuro): normal cognition Extrem General: Yes normal to inspection, Yes full ROM and Yes capillary refill normal Psych Appearance: grossly normal Mental Status: mental status grossly normal Affect: normal affect Attitude: cooperative Thought process: Normal thought process present Thought content: Normal thought content present Insight: Good insight present (Psych) Medical Decision Making Medical Decision Making MDM Narrative: Patient is a 68 year old assigned male at with a history of paroxsysmal atrial fib on anti-coags, LBBB, HTN, and chronic left shoulder pain presenting to the emergency department today with dizziness after taking a muscle relaxer and chronic left shoulder pain. Patient's physical exam was unremarkable. Patient's blood work showed a mildly elevated CR of 1.58 with a BUN of 34 and an initial trop of 12.5. Patient's EKG was unremarkable. Patient's left shoulder x- ray showed probable rotator cuff calcification. I explained my physical exam findings as well as all test results to the patient. I answered all questions asked by the patient. Patient requested to be discharged as his ride was leaving. I explained to the patient that I'd prefer to give him some gentle re- hydration to address his elevated CR + BUN as well as repeat his troponin however, the patient declined - stating that he would like to leave now. His elevated CR + BUN seems to be baseline from previous CMPs and I have low clinical suspicion of ACS in this patient's current clinical presentation and work up. Patient's current clinical presentation is most consistent with an adverse medication reaction and acute on chronic left rotator cuff pain. I stressed the importance of the patient taking his medication as directed (either prescribed or as the over the counter packaging recommends). I stressed the importance of the patient following up with his primary care provider. I stressed the importance of the patient returning to the emergency department immediately if his symptoms were to worsen or if he were to develop any dizziness, shortness of breath, difficulty breathing, chest pain, blurry vision, loss of vision, nausea, vomiting, abdominal pain, fever, chills, back pain, or any other complaints. Patient verbalized agreement and understanding with this treatment plan and discharge. Differential Diagnosis Differential Diagnoses: The differential diagnosis associated with the presentation includes Acute on chronic left shoulder pain Dizziness Adverse reaction to medication Admission/Observation Consideration of admission/observation: Escalation of care including admission/observation considered Patient would have been admitted to the hospital had his work up had any findings where hospital admission was appropriate and his clinical presentation warranted hospital admission. Lab Data [facility] Lab Attestation statement: I reviewed the patient's lab results. My interpretation of these results are in the MDM Rationale portion of this note. 04/30/24 10:22 04/30/24 10:22 Labs: Lab Results 04/30/24 Range/Units 10:22 WBC 7.6 (4.8-10.8) X10*3/uL RBC 4.65 (4.60-5.80) X10*6/uL Hgb 12.9 L (14.0-18.0) g/dl Hct 39.3 L (42.0-52.0) % MCV 84.5 (80.0-98.0) fL MCH 27.7 (27.0-33.0) pg MCHC 32.8 (31.0-36.0) g/dl RDW 14.6 (11.0-16.0) % Plt Count 204 D (160-400) X10*3/uL MPV 8.7 L (9.4-12.4) fL Immature Gran % (Auto) 0.8 H (0.0-0.4) % Neut % (Auto) 61.1 (45-73) % Lymph % (Auto) 18.9 L (20-40) % Valencia % (Auto) 13.0 H (2-11) % Eos % (Auto) 5.5 H (0-4) % Baso % (Auto) 0.7 (0-2) % Lymph # (Auto) 1.4 (1.2-4.9) X10*3/uL Valencia # (Auto) 1.0 (0.1-1.2) X10*3/uL Eos # (Auto) 0.4 (0.0-0.4) X10*3/uL Baso # (Auto) 0.1 (0.0-0.2) X10*3/uL Abs Immat Gran (auto) 0.06 H (0.00-0.03) X10*3/uL Absolute Neuts (auto) 4.6 (2.0-8.3) x10*3/uL Absolute Nucleated RBC 0.000 (0.0-0.012) X10*3/uL Nucleated RBC % (auto) 0.0 (0.0-0.2) /100WBC Sodium 136 (135-145) mmol/L Potassium 4.7 (3.3-5.1) mmol/L Chloride 107 (96-108) mmol/L Carbon Dioxide 24 (22-29) mmol/L Anion Gap 10 L (12-20) BUN 34 H (9-16) mg/dL Creatinine 1.58 H (0.5-1.4) mg/dL Estim Creat Clear Calc 50.6 Estimated GFR 44 Random Glucose 90 (60-115) mg/dL Calcium 9.7 (8.4-10.2) mg/dL Total Bilirubin 0.5 (0.0-1.0) mg/dL AST 23 (5-37) U/L ALT 24 (0-40) U/L Alkaline Phosphatase 64 (39-117) U/L Troponin I High Sens 12.5 (<3.5-35.0) ng/L Total Protein 7.7 (6.5-8.0) g/dL Albumin 4.1 (3.5-5.0) g/dL Independent Interpretation I performed an independent interpretation of an: EKG and Plain X-Ray Interpretation: My interpretation is in agreement with the radiologist's impression of this imaging study. L EXAMINATION: XR SHOULDER 2 OR MORE VIEWS LEFT HISTORY: left shoulder pain COMPARISON: There are no prior studies available for comparison. FINDINGS: Three views of the left shoulder are submitted. Osseous mineralization is normal. There is no fracture or dislocation. There is moderate to severe osteoarthritis of the AC joint with joint space narrowing and osteophyte formation. There is mild osteoarthritis of the glenohumeral joint. Amorphous calcifications adjacent to the greater tuberosity of the humerus is likely related to the rotator cuff. XR/XR shoulder LT min 2V IMPRESSION: Osteoarthritis of the left shoulder as described. Probable rotator cuff calcification. Electronically signed by: Floyd Collins MD 04/30/2024 10:51 AM EST Dictated By: Floyd Collins MD Signed By: Electronically signed by Floyd Collins MD 04/30/24 1051 Vent. Rate: 56 BPM Atrial Rate: 56 BPM P-R Int: 208 ms QRS Dur: 140 ms QT Int: 466 ms P-R-T Axes: 3 -44 44 degrees QTcB Int: 449 ms Sinus bradycardia Left axis deviation Left bundle branch block When compared with ECG of 26-Feb-2022 14:50, No significant change was found Electronically Signed By: KANU WASHINGTON Dictated By: Kanu Washington MD Signed By: Electronically signed by Kanu Washington MD 04/30/24 8844 Radiology Impression Discussion of test interpretation with radiology: I have reviewed the radiologist's reading. Discharge Plan Discharge Clinical Impression: Injury of left rotator cuff, Dizziness Patient Disposition: Home, Self-Care Instructions: Rotator Cuff Injury (ED), Dizziness (ED) Additional Instructions: Follow up with your primary care provider and an orthopedic provider. Return to the emergency department immediately if your symptoms worsen or if you develop any dizziness, shortness of breath, difficulty breathing, chest pain, blurry vision, loss of vision, nausea, vomiting, abdominal pain, fever, chills, back pain, or any other complaints. Prescriptions: No Action montelukast 10 mg tablet 10 mg PO BEDTIME Qty: 90 0RF propranolol 80 mg tablet 80 mg PO BID Eliquis 5 mg tablet 5 mg PO BID 90 Days Qty: 180 3RF sildenafil 50 mg tablet 50 mg PO DAILY PRN (Reason: sexual activity) Qty: 30 1RF Rx Instructions: administer 30 minutes to 1 hour before activity do not take within 4 hours of taking Tamsulosin acetaminophen 500 mg Tablet 1,000 mg PO Q6H PRN (Reason: Pain) ascorbic acid (vitamin C) [Vitamin C] 500 mg Tablet,Chewable 1,000 mg PO DAILY allopurinol 300 mg tablet 300 mg PO DAILY clonazepam 0.5 mg tablet 0.5 mg PO DAILY PRN (Reason: Anxiety) losartan 50 mg tablet 100 mg PO DAILY mirabegron [Myrbetriq] 50 mg tablet extended release 24 hr 50 mg PO DAILY Qty: 90 3RF oxybutynin chloride 5 mg tablet extended release 24hr 5 mg PO BEDTIME Qty: 90 3RF tamsulosin 0.4 mg capsule 0.4 mg PO DAILY Qty: 90 3RF Referrals: Kar Ordonez MD [Primary Care Provider] - Interventions: ED Discharge Assessment Last Done: 04/30/24 13:08 Discharge Date/Time: 04/30/24 13:08 Print Language: Amharic
[2024-04-30 13:08] VITALS: BP 99/57; PULSE 63; RESP 18; TEMP 36.1; O2SAT 98
--- OUTSIDE RECORDS SUMMARY | 2024-04-30 17:45 | XMS_ITS | Encounter Summary ---
Author Organization [facility] Address [address] [place] [phone] Phone Care Team Providers Care Nutritionist Name Role Phone Amanda Aguilar Primary Care Provider + Encounter Details Date Type Department Care Team (Late st Contact Info) Description 04/24/2024 Documentation Only [facility] [address] [place] [phone] Ginette Heart MA [address] [place] [phone] Social History Tobacco Use Types Packs/Day Years Used Date Smoking Tobacco: Never Smokeless Tobacco: Never Sex and Gender Information Value Date Recorded Sex Assigned at Not on file Legal Sex Male 5:24 PM EST Gender Identity Not on file Sexual Orientation Not on file documented as of this encounter Plan of Treatment Upcoming Encounters Date Type Department Care Team (Late st Contact Info) Description 06/05/2024 7:30 AM EST Office Visit [facility] [address] [phone] Fani Friedman ARNP [address] [place] [phone] Pending Results Name Type Priority Associated Diagnoses Date /Time EXT RESULT ENTRY Ext Result Console Routine 01/27/2024 documented as of this encounter Visit Diagnoses Not on filedocumented in this encounter Care Teams Nutritionist Relationship Specialty Start Date End Date Amanda Aguilar [address] [place] [address], [address] JESSICA Dutta [id number] PCP - General Internal Medicine 06/07/23 documented as of this encounter
--- OUTSIDE RECORDS SUMMARY | 2024-04-30 17:45 | XMS_ITS | Clinical Summary ---
Author Organization [facility] Address [address] [place] [phone] Phone Care Team Providers Care Electronic Sensing Equipment Assembler Name Role Phone Amanda Aguilar Primary Care Provider + Allergies No known active allergies Medications acetaminophen (TYLENOL) 500 MG tablet Take by mouth every 6 (six) hours if needed for mild pain Active propranolol (INDERAL) 80 MG tablet Take 80 mg by mouth in the morning and 80 mg in the evening and 80 mg before bedtime. Active montelukast (SINGULAIR) 10 MG tablet Take 10 mg by mouth every night Active clonazePAM (KlonoPIN) 0.5 MG tablet Take 0.5 mg by mouth in the morning and 0.5 mg in the evening. Active allopurinol (ZYLOPRIM) 300 MG tablet Take 300 mg by mouth 1 (one) time each day Active diphenhydrAMINE (BENADRYL) 25 MG capsule Take 25 mg by mouth every 6 (six) hours if needed for itching Active apixaban (Eliquis) 2.5 MG tablet Take 2.5 mg by mouth in the morning and 2.5 mg in the evening. Active tamsulosin (Flomax) 0.4 MG 24 hr capsule Take 0.4 mg by mouth 1 (one) time each day Active losartan (COZAAR) 100 MG tabletIndicatio ns:Stage 3a chronic kidney disease (HCC),Hypertens ion,Proteinuria , not otherwise specified Take 1 tablet (100 mg total) by mouth 1 (one) time each day 90 tablet 3 06/07/2023 Active phenazopyridine (PYRIDIUM) 200 MG tablet Take 200 mg by mouth 3 (three) times a day if needed for bladder spasms Active Vibegron (Gemtesa) 75 MG tablet Take by mouth Active Active Problems Problem Noted Date Diagnosed Date Proteinuria, not otherwise specified 12/07/2023 Hypercalcemia 12/07/2023 Stage 3a chronic kidney disease 07/08/2023 Overview (07/08/2023): Secondary to Hypertension Avoid NSAIDs/OTC Decongestants Exercise, weight loss for healthy BMI Monitor Renal panel and urine alb/creat ratio Q6-12 mos Assessment & Plan (07/08/2023 12:26 AM EDT): Stable Creat 1.4, eGFR 57 as of 06/02/23 Lytes WNL No anemia MBD levels WNL Mild proteinuria Continue ARB Continue plan as outlined in last month's visit note Acute nontraumatic kidney injury 10/08/2021 Idiopathic chronic gout of multiple sites howard nova 07/04/2018 Anxiety disorder 10/28/2017 Hyperlipidemia 10/28/2017 Hypertension 10/28/2017 Atrial fibrillation 10/20/2017 Benign essential hypertension 10/20/2017 Benign prostatic hyperplasia 10/20/2017 Gout 10/20/2017 History of repair of hip joint 10/20/2017 Insomnia 10/20/2017 Left bundle-branch block 10/20/2017 Osteoarthritis 10/20/2017 Rosacea 10/20/2017 Stage 1 chronic kidney disease 08/17/2013 Encounters Date Type Department Care Team Description 04/24/2024 Documentation Only [facility] [address] [place] [id number] Ginette Heart MA from Last 3 Months Immunizations Name Administration Dates Next Due Influenza Split Preservative Free ID 02/29/2012 Influenza, MDCK, PF, Quadrivalent 04/11/2018,09/2016 Influenza, Unspecified 01/20/2010 Pfizer SARS-COV-2 08/08/2020 TD Preservative Free 04/07/1996 Tdap 05/18/2013 Family History Medical History Relation Comments Diabetes Mother Relation Status Comments Father Mother Social History Tobacco Use Types Packs/Day Years Used Date Smoking Tobacco: Never Smokeless Tobacco: Never Tobacco Cessation:Counseling Given: Not Answered Sex and Gender Information Value Date Recorded Sex Assigned at Not on file Legal Sex Male 5:24 PM EST Gender Identity Not on file Sexual Orientation Not on file Last Filed Vital Signs Vital Sign Reading Time Taken Comments Blood Pressure 128/60 12/07/2023 8:00 AM EDT Pulse 54 12/07/2023 8:00 AM EDT Temperature - - Respiratory Rate - - Oxygen Saturation 97% 12/07/2023 8:00 AM EDT Inhaled Oxygen Concentration - - Weight 97.5 kg (215 lb) 12/07/2023 8:00 AM EDT Height 180.3 cm (5' 11 ) 09/10/2021 1:04 PM EDT Body Mass Index 29.99 09/10/2021 1:04 PM EDT Plan of Treatment Upcoming Encounters Date Type Department Care Team (Late st Contact Info) Description 06/05/2024 7:30 AM EST Office Visit [facility] [address] [phone] Fani Friedman ARNP [address] [phone] Health Maintenance Due Date Last Done Comments Pneumococcal Vaccine: 65+ Years (1 of 2 - PCV) 11/26/1961 Colorectal Cancer Screening: Annual FOBT 2002 Colorectal Cancer Screening: Colonoscopy 2002 Colorectal Cancer Screening: Sigmoidoscopy 2002 Influenza Vaccine (#1) 2023 3, 04/25/2020, 04/11/2018, Additional history exists Hepatitis B Vaccine Aged Out No longe r eligible based on patient's age to complete this topic Insurance [facility] Care Teams Electronic Sensing Equipment Assembler Relationship Specialty Start Date End Date Amanda Aguilar [address] [place] [address], [address] [place], [place] [id number] PCP - General Internal Medicine 06/07/23
== END 2024-04-30 13:08 | disposition home or self-care (01) ==
PROVIDERS: Emergency Provider Emergency Medicine; PCP Family Medicine Sports Medicine
DX: R42 Dizziness and giddiness (principal); S46.002A Unspecified injury of muscle(s) and tendon(s) of the rotator cuff of left shoulder, initial encounter; X58.XXXA Exposure to other specified factors, initial encounter; G89.29 Other chronic pain; M25.512 Pain in left shoulder; I10 Essential (primary) hypertension; I48.0 Paroxysmal atrial fibrillation; R05.9 Cough, unspecified; I44.7 Left bundle-branch block, unspecified; Z79.899 Other long term (current) drug therapy; Y93.9 Activity, unspecified; Y92.9 Unspecified place or not applicable; Y99.9 Unspecified external cause status
CPT/HCPCS: 36415; 73030; 80053; 84484; 85025; 93005; 99283

== ENCOUNTER → 2024-04-30 09:50 | Outpatient (BNV) | payer MEDICARE, SELFPAY | PROVIDERS: Emergency Provider Emergency Medicine; PCP Family Medicine Sports Medicine; Visit Provider Internal Medicine | DX: R42 Dizziness and giddiness (principal); R00.1 Bradycardia, unspecified; R94.31 Abnormal electrocardiogram [ECG] [EKG] | CPT/HCPCS: 93010 ==

== ENCOUNTER → 2024-04-30 10:00 | Outpatient (BNV) | payer MEDICARE, SELFPAY | PROVIDERS: PCP Family Medicine Sports Medicine; Visit Provider Radiology Diagnostic Radiology | DX: M19.012 Primary osteoarthritis, left shoulder (principal) | CPT/HCPCS: 73030 ==

== ENCOUNTER 2024-06-26 14:51 | Outpatient (AMB) | payer MEDICARE, SELFPAY ==
[2024-06-26 14:58] VITALS: BP 120/70; PULSE 68; BMI 28.0
--- NOTE | 2024-06-26 14:58 | A.OFFVIS_ITS ---
Vital Signs 06/26/24 14:58 Height 5 ft 11 in Weight 200 lb 9.93 oz BMI 28.0 BP 120/70 Blood Pressure Location Lt brachial Position Sitting Pulse 68 Intake Visit Reasons: 1 yr f/up Intake Note: Early follow-up feeling ok pcp worried about elevated cholesterol Ict Teacher Required: No Allergies No Known Drug Allergies Allergy (Unknown, Verified 04/30/24 09:48) NONE lexiscan Adverse Reaction (Uncoded 04/02/24 14:28) bradycardia, dizziness Medication List - Last Reconciled 06/26/24 by Tyson Fragoso MD acetaminophen 1,000 mg PO Q6H PRN allopurinol 300 mg PO DAILY apixaban (Eliquis) 5 mg PO BID ascorbic acid (vitamin C) (Vitamin C) 1,000 mg PO DAILY clonazepam 0.5 mg PO DAILY PRN losartan 100 mg PO DAILY mirabegron ER (Myrbetriq) 50 mg PO DAILY montelukast 10 mg PO BEDTIME propranolol 80 mg PO BID sildenafil 50 mg PO DAILY PRN tamsulosin 0.4 mg PO DAILY HPI Comments Details: Mariano comes for follow-up. He has no active cardiac issues. Denies any significant exertional chest pain or shortness of breath. Denies any orthopnea, PND, leg edema. No prolonged palpitation irregular heartbeat. Taking all his medications. No bleeding issues or neurologic events. He is worried about carotid disease. He was also mentioned whether he needs coronary calcium score. His carotid duplex did show mild coronary disease in his suggestive of systemic atherosclerosis. [facility] Medical History Bronchitis Cough Cough due to bronchospasm Allergic rhinitis Paroxysmal atrial fibrillation LBBB (left bundle branch block) HTN (hypertension) Surgical History History of knee surgery History of hip surgery Family History Father Myocardial infarction Mother Diabetes Social History Household Members: None Housing: Condominium Do you presently have visiting nurse or other home services: No Alcohol intake: current Alcohol intake frequency: a few times a week Alcohol type: beer Patient Tobacco Use Status: Never used Tobacco Second Hand Smoke Exposure: No service: No Review of Systems Const Denies chills, Denies fatigue, Denies fever(s), Denies frequent falls, Denies weakness, Denies weight gain and Denies weight loss ENT Denies dizziness Card Denies chest pain, Denies leg edema, Denies lightheadedness, Denies palpitations, Denies dyspnea, Denies dyspnea on exertion, Denies orthopnea and Denies other (loss of consciousness) Resp Denies cough, Denies dyspnea and Denies dyspnea on exertion GI Denies hematochezia and Denies change in stool character Musc Denies abnormal gait, Denies muscle weakness, Denies numbness, Denies radiating pain into limb and Denies tingling Neuro Denies abnormal gait, Denies dizziness, Denies frequent falls, Denies numbness, Denies tingling and Denies weakness Endo Denies fatigue and Denies palpitations Physical Exam Vital Signs: Last Vital Signs Pulse 68 06/26/24 14:58 BP 120/70 06/26/24 14:58 BMI result Body Mass Index 28.0 Const General: cooperative, comfortable, alert and awake Nutritional Appearance: obese Orientation/consciousness: patient oriented x3 Limitations: no limitations Neck Neck: Yes trachea midline, Yes supple and Yes no JVD Chest Chest palpation & inspection: normal inspection of the chest Resp Effort & Inspection: normal respiratory effort Auscultation: clear to auscultation bilaterally Cardio Jugular venous distension: no JVD Palpation: normal PMI Rate: regular rate Rhythm: regular rhythm Heart sounds: S1 normal heart sound present and S2 normal heart sound present Skin General skin exam: no rashes or lesions noted Neuro General: patient oriented x3 and no focal motor deficits Extrem General: Yes no clubbing, cyanosis or edema Psych Appearance: grossly normal Affect: Anxious affect present Assessment & Plan Assessment & Plan (1) Paroxysmal atrial fibrillation: Code(s): I48.0 - Paroxysmal atrial fibrillation Category: Medical Plan: Highly symptomatic paroxysmal atrial fibrillation without any obvious clinical recurrence. He is doing well at current point time. Continue aggressive risk factor modification with aggressive blood pressure control. Continue propranolol therapy which has helped him significantly. Currently on full oral anticoagulation with Eliquis at 5 mg b.i.d.. Semi annual renal function test should be pursued. Stress mitigation strategies were discussed. Avoidance of stimulants was discussed. Advised to call me with any worsening symptoms. (2) LBBB (left bundle branch block): Code(s): I44.7 - Left bundle-branch block, unspecified Category: Medical Plan: Left bundle-branch block, chronic without any reduction LV ejection fraction. Overall doing well. No interventions pursue required for it (3) HTN (hypertension): Code(s): I10 - Essential (primary) hypertension Category: Medical Plan: Hypertension which is currently well optimized on current therapy with propranolol is losartan. Importance of good blood pressure control was discussed. Target goal blood pressure less than 130/84. Advised low-salt diet. Advised stress mitigation strategies. Advised to monitor blood pressure intermittently at home and maintain a log. (4) Carotid disease, bilateral: Comment: Mild, 0-49% by carotid duplex in 2023 Code(s): I77.9 - Disorder of arteries and arterioles, unspecified Category: Medical Plan: Mild carotid disease suggestive of atherosclerosis. There is no role for coronary calcium score at this point time. Continue aggressive risk factor modification. Continue aggressive blood pressure control. Currently on full oral anticoagulation. Would target goal LDL less than 70 mg/dL. Advised lipid panel in near future. Will follow up in the clinic in 1 year's time, sooner p.r.n.. Thank you for allowing me to partake in his care Orders: Orders Lipid Panel 06/26/24 I48.0 - Paroxysmal atrial fibrillation CRP High Sensitivity Today E78.5 - Hyperlipidemia, unspecified, I77.9 - Disorder of arteries and arterioles, unspecified Coding Level of Care Code Est Pt Level 4 (91608) Complex EM visit Add On G2211 Diagnoses Paroxysmal atrial fibrillation I48.0 LBBB (left bundle branch block) I44.7 HTN (hypertension) I10 Carotid disease, bilateral I77.9
--- OUTSIDE RECORDS SUMMARY | 2024-06-26 18:36 | XMS_ITS | Clinical Summary ---
Author Organization [facility] Address [address] [address] Phone Care Team Providers Care Electric Train Driver Name Role Phone Amanda Aguilar Primary Care Provider + Allergies Active Allergy Reactions Criticality Noted Date Comments Meloxicam Other (see comments) High 06/05/2024 Dizziness, low b/p Medications acetaminophen (TYLENOL) 500 MG tablet Take by mouth every 6 (six) hours if needed for mild pain Active propranolol (INDERAL) 80 MG tablet Take 80 mg by mouth in the morning and 80 mg in the evening and 80 mg before bedtime. Active clonazePAM (KlonoPIN) 0.5 MG tablet Take 0.5 mg by mouth in the morning and 0.5 mg in the evening. Active allopurinol (ZYLOPRIM) 300 MG tablet Take 300 mg by mouth 1 (one) time each day Active apixaban (Eliquis) 2.5 MG tablet Take 2.5 mg by mouth in the morning and 2.5 mg in the evening. Active losartan (COZAAR) 100 MG tabletIndicatio ns:Stage 3a chronic kidney disease (HCC),Hypertens ion,Proteinuria , not otherwise specified Take 1 tablet (100 mg total) by mouth 1 (one) time each day 90 tablet 3 4 Active montelukast (SINGULAIR) 10 MG tablet Take 10 mg by mouth every night 06/06/19 25 Discontinu ed(Med List Maintenanc e) diphenhydrAMINE (BENADRYL) 25 MG capsule Take 25 mg by mouth every 6 (six) hours if needed for itching 06/06/19 25 Discontinu ed(Med List Maintenanc e) tamsulosin (Flomax) 0.4 MG 24 hr capsule Take 0.4 mg by mouth 1 (one) time each day 06/06/19 25 Discontinu ed(Med List Maintenanc e) phenazopyridine (PYRIDIUM) 200 MG tablet Take 200 mg by mouth 3 (three) times a day if needed for bladder spasms 06/06/19 25 Discontinu ed(Med List Maintenanc e) Vibegron (Gemtesa) 75 MG tablet Take by mouth 06/06/19 25 Discontinu ed(Med List Maintenanc e) oxybutynin XL (DITROPAN-XL) 5 MG 24 hr tablet Take 1 tablet by mouth 1 (one) time each day in the evening 06/06/19 25 Discontinu ed(Med List Maintenanc e) Active Problems Problem Noted Date Diagnosed Date [...] 10/08/2021 Idiopathic chronic gout of multiple sites withou t tophus 07/04/2018 Anxiety disorder 10/28/2017 Hyperlipidemia 10/28/2017 Hypertension 10/28/2017 Atrial fibrillation 10/20/2017 Benign essential hypertension 10/20/2017 Benign prostatic hyperplasia 10/20/2017 Gout 10/20/2017 History of repair of hip joint 10/20/2017 Insomnia 10/20/2017 Left bundle-branch block 10/20/2017 Osteoarthritis 10/20/2017 Rosacea 10/20/2017 Stage 1 chronic kidney disease 08/17/2013 Encounters Date Type Department Care Team Description 06/05/2024 7:30 AM EST [facility] Visit [facility] [address] [phone] Fani Friedman ARNP Stage 3a chronic kidney disease (HCC) (Primary Dx); Hypertension; Hypercalcemia 06/02/2024 Orders Only [facility] [address] [phone] Fani Friedman ARNP Stage 3a chronic kidney disease (HCC); Hypertension; Proteinuria, not otherwise specified; Hypercalcemia 05/16/2024 Documentation Only [facility] [address] [phone] Mignon Wang 04/24/2024 Documentation Only [facility] [address] [phone] [employer] MA from Last 3 Months Immunizations [...] Sign Reading Time Taken Comments Blood Pressure 138/100 06/05/2024 8:03 AM EST Pulse 86 06/05/2024 7:26 AM EST Temperature - - Respiratory Rate - - Oxygen Saturation 98% 06/05/2024 7:26 AM EST Inhaled Oxygen Concentration - - Weight 92.5 kg (204 lb) 06/05/2024 7:26 AM EST Height 180.3 cm (5' 11 ) 09/10/2021 1:04 PM EDT Body Mass Index 28.45 09/10/2021 1:04 PM EDT Plan of Treatment Upcoming Encounters Date Type Department Care Team (Late st Contact Info) Description 08/06/2024 8:15 AM EDT Office Visit [facility] [address] [phone] Fani Friedman ARNP [address] [phone] Health Maintenance Due Date Last Done Comments Pneumococcal Vaccine: 65+ Years (1 of 2 - PCV) 11/26/1961 Colorectal Cancer Screening: Annual FOBT 2002 Colorectal Cancer Screening: Colonoscopy 2002 Colorectal Cancer Screening: Sigmoidoscopy 2002 Influenza Vaccine Completed 05/04/2024, , 04/25/2020, Additional history exists Hepatitis B Vaccine Aged Out No longe r eligible based on patient's age to complete this topic Procedures Procedure Name Priority Date/Time Associated Diagnosis Comments PTH, INTACT Routine 05/31/2024 9:57 AM EST PROTEIN / CREATININE RATIO, URINE Routine 05/31/2024 9:57 AM EST CBC Routine 05/31/2024 9:57 AM EST RENAL FUNCTION PANEL Routine 05/31/2024 9:57 AM EST EXT RESULT ENTRY Routine 05/04/2024 from Last 3 Months Results * Protein, Total, Random Urine w/Creatinine (Protein/Creat Ratio) (05/31/2024 9:57 AM EST) Creatinine, Ur 104.0 Not Estab. mg/dL [facility] Protein, Ur 13.6 Not Estab. mg/dL [facility] Urine Protein/Creatin ine Ratio 131 0 - 200 mg/g creat [facility] 05/31/2024 9:57 AM EST 05/31/2024 [facility] LAB URINE ORDERABLES Final Result Performing Organization Address City/[facility]/ZIP Co de Phone Number [facility] [address] [place] [address] * (ABNORMAL) CBC (05/31/2024 9:57 AM EST) WBC 8.0 3.4 - 10.8 x10E3/uL [facility] RBC 5.79 4.14 - 5.80 x10E6/uL [facility] Hemoglobin 15.8 13.0 - 17.7 g/dL [facility] Hematocrit 47.9 37.5 - 51.0 % [facility] MCV 83 79 - 97 fL [facility] MCH 27.3 26.6 - 33.0 pg [facility] MCHC 33.0 31.5 - 35.7 g/dL [facility] RDW 15.9(H) 11.6 - 15.4 % [facility] Platelets 213 150 - 450 x10E3/uL [facility] 05/31/2024 9:57 AM EST 05/31/2024 [facility] LAB BLOOD ORDERABLES Final Result [facility] [address] [place] [address] * PTH, Intact (05/31/2024 9:57 AM EST) PTH 23 15 - 65 pg/mL [facility] 05/31/2024 9:57 AM EST 05/31/2024 Fani Friedman [facility] LAB BLOOD ORDERABLES Final Result [facility] [address] [place] [address] * (ABNORMAL) Renal Function Panel (05/31/2024 9:57 AM EST) Glucose 115(H) 70 - 99 mg/dL [facility] BUN 26 8 - 27 mg/dL [facility] Creatinine 1.31(H) 0.76 - 1.27 mg/dL [facility] eGFR CKD-EPI CR 2020 59(L) >59 mL/min/1.7 3 [facility] BUN/Creatinine Ratio 20 10 - 24 [facility] Sodium 136 134 - 144 mmol/L [facility] Potassium 4.9 3.5 - 5.2 mmol/L [facility] Chloride 100 96 - 106 mmol/L [facility] Bicarbonate (CO2) 21 20 - 29 mmol/L [facility] Calcium 10.3(H) 8.6 - 10.2 mg/dL [facility] Albumin 4.2 3.9 - 4.9 g/dL [facility] Phosphorus 3.8 2.8 - 4.1 mg/dL [facility] 05/31/2024 9:57 AM EST 05/31/2024 Fani Friedman [facility] LAB BLOOD ORDERABLES Final Result [facility] [address] [place] [address] * (ABNORMAL) EXT RESULT ENTRY (05/04/2024) WBC 7.23 3.3 - 10.0 10*3/ML Red Blood Cell Count 4.97 Hemoglobin 13.4(A) 13.5 - 17.5 Hematocrit 41.0 41.0 - 53.0 Platelets 193 150 - 399 10*3/UL Sodium 135(A) 137 - 147 Potassium 5.2 3.4 - 5.5 Carbon Dioxide 26 mmol/L Anion Gap 16 <=30 MMOL/L Glucose 117 60 - 200 BUN 24(A) 4 - 21 mg/dL Creatinine 1.20 0.60 - 1.30 mg/dL Calcium 10.0 8.7 - 10.7 mg/dL eGFR Non-Afr Kenyan 65 05/04/2024 Historical Provider LAB BLOOD ORDERABLES Cheryle l Result from Last 3 Months Insurance Care Teams Electric Train Driver Relationship Specialty Start Date End Date Amanda Aguilar [address] [place] [address] [address] [place] [address] PCP - General Internal Medicine 06/07/23
--- OUTSIDE RECORDS SUMMARY | 2024-06-26 18:36 | XMS_ITS | Encounter Summary ---
Author Organization [facility] Address [address] [phone] Phone Care Team Providers Care Senior Internet Sales Consultant Name Role Phone Amanda Aguilar Primary Care Provider + Reason for Visit * Reason Comments Chronic Kidney Disease Encounter Details Date Type Department Care Team (Late st Contact Info) Description 06/05/2024 7:30 AM EST Office Visit [facility] [address] [phone] Fani Friedman ARNP [address] [phone] Stage 3a chronic kidney disease (HCC) (Primary Dx); Hypertension; Hypercalcemia Social History Tobacco Use Types Packs/Day Years Used Date Smoking Tobacco: Never Smokeless Tobacco: Never Sex and Gender Information Value Date Recorded Sex Assigned at Not on file Legal Sex Male 5:24 PM EST Gender Identity Not on file Sexual Orientation Not on file documented as of this encounter Last Filed Vital Signs Vital Sign Reading Time Taken Comments Blood Pressure 138/100 06/05/2024 8:03 AM EST Pulse 86 06/05/2024 7:26 AM EST Temperature - - Respiratory Rate - - Oxygen Saturation 98% 06/05/2024 7:26 AM EST Inhaled Oxygen Concentration - - Weight 92.5 kg (204 lb) 06/05/2024 7:26 AM EST Height - - Body Mass Index 28.45 09/10/2021 1:04 PM EDT documented in this encounter Patient Instructions * Patient Instructions* Fani Friedman ARNP - 06/05/2024 7:30 AM EST Blood pressure monitoring education: Monitor home blood pressure values after sitting for 5 minutes with back and arm support. Keep a log. Bring your log and blood pressure cuff to your next visit. documented in this encounter Progress Notes * Fani Friedman ARNP - 06/05/2024 7:30 AM EST Images from the original note were not included. Patient Name: Kevin Vaughn, Male Date of : 1955, 68 y.o. Date: 06/05/2024 History of Present Illness Kevin Vaughn is a 68 y.o. male here in follow-up for CKD Stage 3a and HTN. Reports gross hematuria followed by Oliguria in 01/2023 and was seen at [place] [facility] - it turns out he had blood clot in bladder, hospitalized for 3 days. H/o TURP. Started back on Tamsulosin. Hematuria resolved and was left with urinary frequency q 2 hours, still followed by Urology who's aware, discussing about a bladder implant . On Gemtesa as well and one other medication for this at night which he can't recall the name of. Nocturia has improved. Sees Dr. Fields in Cardiology for Atrial fibrillation Renal US wnl 2020. Underwent Right Knee total replacement in 02/2024, still recovering. The following portions of the patient's chart were reviewed in this encounter and updated as appropriate: Allergies Meds Problems Med Hx Surg Hx Fam Hx Review of Systems Constitutional: Negative for chills, fever, weight gain and weight loss. HENT: Negative for hearing loss and nosebleeds. Eyes: Negative for blurred vision and double vision. Respiratory: Negative for cough and shortness of breath. Cardiovascular: Negative for chest pain, palpitations and leg swelling. Gastrointestinal: Negative for abdominal pain, diarrhea, nausea, vomiting and poor appetite. Genitourinary: Positive for nocturia. Negative for dysuria, flank pain, frequency, hematuria and urgency. 2-3x/night Musculoskeletal: Positive for joint pain. Negative for back pain. Arthritis of hands, shoulders and neck Skin: Negative for rash. Neurological: Negative for dizziness, tingling, numbness and headaches. Endo/Heme/Allergies: Does not bruise/bleed easily. Psychiatric/Behavioral: Negative. Medication List Current Outpatient Medications Medication Sig Dispense Refill acetaminophen (TYLENOL) 500 MG tablet Take by mouth every 6 (six) hours if needed for mild pain allopurinol (ZYLOPRIM) 300 MG tablet Take 300 mg by mouth 1 (one) time each day apixaban (Eliquis) 2.5 MG tablet Take 2.5 mg by mouth in the morning and 2.5 mg in the evening. clonazePAM (KlonoPIN) 0.5 MG tablet Take 0.5 mg by mouth in the morning and 0.5 mg in the evening. (Patient taking differently: Take 0.5 mg by mouth in the morning and 0.5 mg in the evening. Takes for flying and imaging .) losartan (COZAAR) 100 MG tablet Take 1 tablet (100 mg total) by mouth 1 (one) time each day 90 tablet 3 propranolol (INDERAL) 80 MG tablet Take 80 mg by mouth in the morning and 80 mg in the evening and 80 mg before bedtime. No current facility-administered medications for this visit. Allergy List Allergies Allergen Reactions Meloxicam Other (see comments) Dizziness, low b/p Physical Exam BP 138/100 (BP Location: Right upper arm, Patient Position: Sitting, BP Cuff Size: Adult) Pulse 86 Wt 204 lb (92.5 kg) SpO2 98% BMI 28.45 kg/m?? Vitals reviewed. Constitutional: He is oriented to person, place, and time. He does not appear ill. No distress. HEENT: Mouth/Throat: Oropharynx is clear and moist. Eyes: Conjunctivae are normal. Neck: No JVD present. Cardiovascular: Normal rate and regular rhythm. No murmur heard.He exhibits no edema. Pulmonary/Chest: Effort normal and breath sounds normal. Abdominal: Soft. He exhibits no distension. There is no abdominal tenderness. No CVA tenderness bilat Neurological: He is alert and oriented to person, place, and time. Skin: Skin is warm and dry. No rash noted. No erythema. Psychiatric: He has a normal mood and affect. His behavior is normal. Judgment normal. Labs Chemistry Lab Units 05/31/2495605/04/24 15505/04/24 0000 01/27/24 0000 12/12/23 0759 07/07/23 15506/02/23 1656 02/10/23 1423 01/07/23 1100 01/07/23 1100 09/02/22 0906 CREATININE mg/dL 1.31* 1.20 1.20 1.55* 1.54* 1.32* 1.4* 1.40 < > 1.50 1.4* BUN mg/dL 26 24* 24* 20 22 20 25* 20* < > 20* 18 POTASSIUM mmol/L 4.9 5.2* 5.2 4.9 5.0 4.5 4.2 4.7 < > 5.7* 5.2 SODIUM mmol/L 136 135 135* 141 137 138 137 137 < > 135 137 CO2 mmol/L 21 26 26 23 24 23 28 27 < > 30 30* CHLORIDE mmol/L 100 98 -- -- 101 99 98 104 < > 99 100 ALBUMIN g/dL 4.2 4.6 -- -- 4.5 -- 4.6 4.6 -- 4.7 4.6 EGFRNAFR -- -- 65 48 -- -- 57 -- -- -- 56 EGFR mL/min/1.73 59* 65 -- -- 48* 58* -- 54* -- 50* -- HEMOGLOBIN A1C % -- -- -- -- 6.3* -- -- -- -- -- 5.8* WBC AUTO x10E3/uL 8.0 7.23 7.23 -- 6.6 -- 6.5 -- -- 6.92 8.2 HEMATOCRIT % 47.9 41.0 41.0 49.0 48.8 -- 44.1 -- -- 46.8 39.1* HEMOGLOBIN g/dL 15.8 13.4* 13.4* 15.9 15.8 -- 14.8 -- -- 15.0 12.5* PLATELETS AUTO x10E3/uL 213 193 193 211 164 -- 189 -- -- 206 192 < > = values in this interval not displayed. Bone Mineral Lab Units 05/31/2457 05/04/24 15505/04/24 0000 12/12/23 0759 07/07/23 1552 06/02/23 1656 02/10/23 1423 01/07/23 1100 01/07/23 1100 09/02/22 0906 CALCIUM mg/dL 10.3* 10.0 10.0 9.9 10.4* 10.1 10.1 < > 10.5* 10.1 PHOSPHORUS mg/dL 3.8 -- -- 3.4 -- 2.9 -- -- -- -- ALK PHOS U/L -- 74 -- -- -- -- 62 -- 59 61 PTH pg/mL 23 -- -- 30 -- -- -- -- -- 44 VITAMIN D NG/ML -- -- -- -- -- 28.5 -- -- -- -- VIT D 25 HYDROXY ng/mL -- -- -- 30.2 -- -- -- -- -- -- < > = values in this interval not displayed. Urine Lab Units 05/31/24 0957 12/12/23 0759 06/02/23 1658 09/02/22 0906 PROT/CREAT RATIO UR mg/g creat 131 -- -- -- ALB MG/G CREAT UR mg/g creat -- 21 29.8* 122.3 23.0* 54.0 Iron Studies Lab Units 12/12/23 0759 09/02/22 0906 FERRITIN ng/mL 125 241 TIBC ug/dL 330 300 IRON SATURATION % 20 22 ASSESSMENT/PLAN: CKD Stage 3a r/t hypertensive nephrosclerosis: Stable Creatinine 1.3, GFR 59 Normal Lytes Optimize BP control On ARB No Anemia Avoid Nephrotoxins Hypertension: Blood pressure is elevated in the office today Target BP <120/80 On Losartan 100 mg QD & Propranolol 80 mg TID No Edema Monitor home BP, record and bring in readings to next visit Follow low NA diet Encouraged exercise and weight loss to meet adequate BMI Target BP <120/80 Proteinuria: Continue Losartan regimen Normal UA/CR as of 12/2023 Will monitor 4. Hypercalcemia: Calcium elevated 10.3 Normal PTH level in the 20s Recommend follow-up with Stock [facility] for further eval Return visit in 6 months for follow-up with labs ordered to be done a week or two prior to visit KAREN Delgadillo Cosigned by Gustavo Monreal MD at 06/05/2024 1:12 PM EST documented in this encounter Plan of Treatment Upcoming Encounters Date Type Department Care Team (Late st Contact Info) Description 08/06/2024 8:15 AM EDT Office Visit [facility] [address] [phone] Fani Friedman ARNP [address] [phone] documented as of this encounter Visit Diagnoses Diagnosis Stage 3a chronic kidney disease (HCC)- Primary Hypertension Hypercalcemia documented in this encounter Care Teams Senior Internet Sales Consultant Relationship Specialty Start Date End Date Amanda Aguilar [address] [place] [address], [address] [place] [address] PCP - General Internal Medicine 06/07/23 documented as of this encounter
--- OUTSIDE RECORDS SUMMARY | 2024-06-26 18:36 | XMS_ITS | Encounter Summary ---
Author Organization [facility] Address [address] [phone] Phone Care Team Providers Care Doll Wig Hackler Name Role Phone Amanda Aguilar Primary Care Provider + Encounter Details Date Type Department Care Team (Late st Contact Info) Description 06/02/2024 Orders Only [facility] [address] [phone] Fani Friedman ARNP [address] [phone] Stage 3a chronic kidney disease (HCC); Hypertension; Proteinuria, not otherwise specified; Hypercalcemia Social History Tobacco Use Types Packs/Day [...] Office Visit [facility] [address] [phone] Fani Friedman ARNP [address] [phone] documented as of this encounter Procedures Procedure Name Priority Date/Time Associated Diagnosis Comments PROTEIN / CREATININE RATIO, URINE Routine 05/31/2024 9:57 AM EST CBC Routine 05/31/2024 9:57 AM EST PTH, INTACT Routine 05/31/2024 9:57 AM EST RENAL FUNCTION PANEL Routine 05/31/2024 9:57 AM EST documented in this encounter Results * PTH, Intact (05/31/2024 9:57 AM EST) PTH 23 15 - 65 pg/mL [facility] 05/31/2024 9:57 AM EST 05/31/2024 Fani Friedman [facility] LAB BLOOD ORDERABLES Final Result Performing Organization Address City/[facility]/ZIP Co de Phone Number [employer] [facility] [address] [place] [address] * Protein, Total, Random Urine w/Creatinine (Protein/Creat Ratio) (05/31/2024 9:57 AM EST) Pathologist [facility] Creatinine, Ur 104.0 Not Estab. mg/dL [facility] Protein, Ur 13.6 Not Estab. mg/dL [facility] Urine Protein/Creatin ine Ratio 131 0 - 200 mg/g creat [facility] 05/31/2024 9:57 AM EST 05/31/2024 [employer] [facility] LAB URINE ORDERABLES Final Result [employer] [facility] [place] [address] [place] [address] * (ABNORMAL) CBC (05/31/2024 9:57 AM EST) WBC 8.0 3.4 - 10.8 x10E3/uL [facility] RBC 5.79 4.14 - 5.80 x10E6/uL [facility] Hemoglobin 15.8 13.0 - 17.7 g/dL [facility] Hematocrit 47.9 37.5 - 51.0 % [facility] MCV 83 79 - 97 fL [facility] MCH 27.3 26.6 - 33.0 pg [facility] MCHC 33.0 31.5 - 35.7 g/dL [facility] RDW 15.9(H) 11.6 - 15.4 % [facility] Platelets 213 150 - 450 x10E3/uL [facility] 05/31/2024 9:57 AM EST 05/31/2024 Fani Friedman [facility] LAB BLOOD ORDERABLES Final Result [facility] [address] [place] [address] * (ABNORMAL) Renal Function Panel (05/31/2024 9:57 AM EST) Glucose 115(H) 70 - 99 mg/dL [facility] BUN 26 8 - 27 mg/dL [facility] Creatinine 1.31(H) 0.76 - 1.27 mg/dL [facility] eGFR CKD-EPI CR 2020 59(L) >59 mL/min/1.7 3 [facility] BUN/Creatinine Ratio 20 10 - 24 [facility] Sodium 136 134 - 144 mmol/L [facility] Potassium 4.9 3.5 - 5.2 mmol/L [facility] Chloride 100 96 - 106 mmol/L [facility] Bicarbonate (CO2) 21 20 - 29 mmol/L [facility] Calcium 10.3(H) 8.6 - 10.2 mg/dL [facility] Albumin 4.2 3.9 - 4.9 g/dL [facility] Phosphorus 3.8 2.8 - 4.1 mg/dL [facility] 05/31/2024 9:57 AM EST 05/31/2024 Fani N[facility]P LAB BLOOD ORDERABLES Final Result [facility] [address] [place] [address] documented in this encounter Visit Diagnoses Diagnosis Stage 3a chronic kidney disease (HCC) Hypertension Proteinuria, not otherwise specified Hypercalcemia documented in this encounter Care Teams Doll Wig Hackler Relationship Specialty Start Date End Date Amanda Aguilar [address] [place] [address], [address] [place] [address] PCP - General Internal Medicine 06/07/23 documented as of this encounter
== END 2024-06-26 15:42 | disposition home or self-care (01) ==
LOC: HO.HCS 14:52
PROVIDERS: PCP Family Medicine; Visit Provider Internal Medicine Cardiovascular Disease
DX: I48.0 Paroxysmal atrial fibrillation (principal); I44.7 Left bundle-branch block, unspecified; I10 Essential (primary) hypertension; I77.9 Disorder of arteries and arterioles, unspecified
CPT/HCPCS: 99214; G2211

== ENCOUNTER → 2024-06-26 14:51 | Outpatient (BNVA) | payer MEDICARE, SELFPAY | PROVIDERS: PCP Family Medicine; Visit Provider Internal Medicine Cardiovascular Disease | DX: I48.0 Paroxysmal atrial fibrillation (principal); I44.7 Left bundle-branch block, unspecified; I10 Essential (primary) hypertension; I77.9 Disorder of arteries and arterioles, unspecified; E78.5 Hyperlipidemia, unspecified | CPT/HCPCS: 99212 ==

== ENCOUNTER 2024-12-26 11:51 | Outpatient (REF) | payer MEDICARE, SELFPAY ==
[2024-12-26 13:22] LABS: PSA,Total (Free>4and<10) 4.14 ng/mL (0.00-4.00)
--- OUTSIDE RECORDS SUMMARY | 2024-12-26 14:51 | XMS_ITS | Clinical Summary ---
Author Organization [facility] Address [address] [place] [id number] Phone Care Team Providers Care Geoint Analyst Name Role Phone Trav Whaley MD Unavailable Amanda Aguilar MD Primary Care Provider Allergies Active Allergy Reactions Criticality Noted Date Comments Meloxicam Other (See Comments) High 06/05/2024 Dizziness, low b/p Medications acetaminophen (TYLENOL) 500 MG tablet Take by mouth every 6 (six) hours as needed. Active allopurinol (ZYLOPRIM) 300 MG tabletIndications :Gout Take 1 tablet (300 mg total) by mouth daily. 90 tablet 2 Active fluticasone propionate (FLONASE) 50 mcg/actuation nasal spray 1 spray by Nasal route daily. Active apixaban (ELIQUIS) 5 mg tablet Take 5 mg by mouth 2 (two) times a day. Active sildenafiL (VIAGRA) 50 mg tablet PLEASE SEE ATTACHED FOR DETAILED DIRECTIONS 3 Active oxyBUTYnin (DITROPAN-XL) 5 MG 24 hr tablet take 1 tablet by mouth everyday at bedtime 4 Active montelukast (SINGULAIR) 10 mg tablet TAKE 1 TABLET BY MOUTH AT BEDTIME 90 tablet 1 5 Active clonazePAM (KLONOPIN) 0.5 MG tabletIndications :Anxiety state Take 1 tablet (0.5 mg total) by mouth 2 (two) times a day as needed for anxiety. 30 tablet 5 Active losartan (COZAAR) 100 MG tabletIndications :Benign essential hypertension TAKE 1 TABLET BY MOUTH EVERY DAY 90 tablet 5 Active propranoloL (INDERAL) 80 MG immediate release tabletIndications :HTN (hypertension) TAKE 1 TABLET BY MOUTH 2 TIMES A DAY. 180 tablet 3 5 Active gabapentin (NEURONTIN) 100 MG capsule Take 300 mg by mouth 2 (two) times a day. 5 Active amLODIPine (NORVASC) 5 MG tablet Take 5 mg by mouth daily. Active rosuvastatin (CRESTOR) 40 MG tablet Take 1 tablet (40 mg total) by mouth daily. 90 tablet 1 5 Active Active Problems Problem Noted Date Diagnosed Date Cervical radiculopathy 11/01/2024 Assessment & Plan (11/01/2024 4:51 PM EDT): Ongoing symptoms of cervical radiculopathy, followed by perinatal specialist who recommended MR C-spine and referral to neurosurgery. The neurosurgeon is unable to see him until MRI is completed. Patient tried open MRI with use of clonazepam however still had claustrophobia and was unable to complete the study. Discussed alternatives including finding an upright open MRI machine in another state vs seeing if MRI under anesthesia would be a possibility. I missed the nursing team to see if this is possible at [facility]. If not then we will refer to other upright, open MRI machine that he will identify. Bilateral shoulder pain 11/01/2024 Assessment & Plan (11/01/2024 4:53 PM EDT): Bilateral shoulder pain for which she is followed by orthopedics who are recommending MRI of bilateral shoulders to evaluate for rotator cuff damage. Unfortunately running into issues with Betty profound claustrophobia which has been unable to overcome with with an open MRI and use of benzodiazepines. Given this I am inquiring whether MRI under anesthesia would be a possibility at [facility]. If not then we will refer to open, upright MRI machine that he will find. Status post right knee replacement 05/04/2024 Assessment & Plan (05/04/2024 3:35 PM EST): Has had residual post-op effusion of the right knee, followed by orthopedics and has started meloxicam burst. Continue this treatment, advised adding in APAP to anti-inflammatory regimen. Advised continued icing regularly. Follow-up if not improved. Adenomatous polyp of colon 07/14/2023 Diverticulosis 07/13/2023 Numbness and tingling 03/03/2023 Assessment & Plan (05/04/2024 3:33 PM EST): Ongoing numbness/tingling of right foot, with prior work-up for underlying medical etiology negative. He was recently diagnosed with cervical spinal stenosis so possible the numbness is due to lumbar stenosis. Will evaluate first with XR L- Spine. He is established with perinatal specialist already, and encouraged patient to follow-up with their office. Assessment & Plan (03/03/2023 2:43 PM EST): Patient endorses increased numbness/tingling, primarily of right foot. While he wonders if it is related to his preDM range A1c, will rule out other underlying medical etiology. No known lumbar spine pathology - Follow-up B12, EMRE, ESR, SPEP - Consider referral to neurology for further work-up Prediabetes 02/14/2023 Assessment & Plan (11/01/2024 4:43 PM EDT): Last A1c WNL. Assessment & Plan (05/04/2024 3:31 PM EST): Repeat A1c today. Assessment & Plan (03/03/2023 2:40 PM EST): Recent diagnosis of prediabetes with A1c of 5.9%, patient has already made dietary and lifestyle changes to manage. - Repeat A1c in 6 months Assessment & Plan (02/14/2023 5:13 PM EST): Angel last A1c was last month- 5.9-my recommendation would be to repeat in another 2 months. He will follow-up with his PCP later this month. I gave guidance regarding a healthier lifestyle-diet and exercise modification as best he can. Prostate disorder 01/07/2023 Assessment & Plan (01/07/2023 10:58 AM EDT): Kevin has prostate concerns. I put a referral back to urology today and he was appreciative. He is due for lab work and I will update him with the results. He will call if there are any other issues or concerns. He understands and agrees. Healthcare maintenance 01/07/2023 Assessment & Plan (05/04/2024 3:35 PM EST): Due for Td and flu vaccines, administered today Assessment & Plan (01/07/2023 10:59 AM EDT): Kevin is due for labs-ordered these today and I will update him with the results. I advised him to follow-up with PCP-new-in a month. He understands and agrees. Idiopathic chronic gout of multiple sites withangy nova 07/04/2018 Assessment & Plan (11/01/2024 4:43 PM EDT): Last uric acid level at goal, no recent gout flares. Continue current regimen. Assessment & Plan (05/04/2024 3:31 PM EST): Has been maintained on allopurinol 300mg daily but with underlying CKD will recheck CrCl to ensure dosing is appropriate. No recent gout flares. Assessment & Plan (03/03/2023 2:37 PM EST): Maintained on allopurinol 300mg daily. 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 - Recommended dose reduction of allopurinol to 50mg daily given underlying CKD Anxiety disorder 10/28/2017 Assessment & Plan (05/04/2024 3:34 PM EST): Rare use of clonazepam 0.5mg BID PRN. Assessment & Plan (03/03/2023 2:40 PM EST): Maintained on clonazepam 0.5mg BID PRN. Unable to discuss today due to acuity of other issues. Will address in follow-up appointment. Hyperlipidemia 10/28/2017 Assessment & Plan (11/01/2024 4:42 PM EDT): Due for repeat lipid panel, ordered. Not currently maintained on lipid-lowering medication. Assessment & Plan (05/04/2024 3:30 PM EST): Due for repeat lipid panel, ordered. Not currently maintained on lipid-lowering medication. Assessment & Plan (03/03/2023 2:36 PM EST): Recent LDL-C elevated to 119 with a calculated ASCVD 17%. Discussed recommendation for lipid-lowering therapy, patient would like to try lifestyle modifications first which is reasonable. - Discussed lifestyle modifications to make - Repeat lipid panel in 6 months Atrial fibrillation status post cardioversion Assessment & Plan (11/01/2024 4:42 PM EDT): Followed by cardiology, AC with Rodriguez, not on rate controlling medication aside from propranolol. Assessment & Plan (05/04/2024 3:09 PM EST): Followed by cardiology, AC with Amandaqualon, not on rate controlling medication aside from propranolol. Assessment & Plan (03/03/2023 2:35 PM EST): Followed by cardiology, AC with Rodriguez, not on rate controlling medication aside from propranolol. Assessment & Plan (02/14/2023 5:03 PM EST): Stable on his medications. Benign essential hypertension 10/20/2017 Assessment & Plan (11/01/2024 4:42 PM EDT): BP at goal, continue losartan 100mg daily and amlodipine 5mg daily. Assessment & Plan (05/04/2024 3:30 PM EST): Repeat BP at goal, continue losartan 100mg daily. Assessment & Plan (03/03/2023 2:35 PM EST): BP at goal today, maintained on losartan 100mg daily Assessment & Plan (02/14/2023 5:03 PM EST): Kevin Vaughn has hypertension and he is taking the above medication as directed without any side effects. his blood pressure is within normal limits and stable. he will follow up as directed. Assessment & Plan (01/07/2023 10:58 AM EDT): Kevin has hypertension-his blood pressure is elevated today. I increased his losartan to 100 mg a day and I ordered labs today to monitor his renal function. Follow-up with new PCP in a month. He will call if there are any other issues or concerns. He understands and agrees. Acne rosacea 10/20/2017 BPH (benign prostatic hyperplasia) 10/20/2017 Assessment & Plan (11/01/2024 4:51 PM EDT): Ongoing nocturia and urinary frequency despite triple therapy with oxybutynin, tamsulosin and Myrbetriq. He is followed by urology. Discussed trial of Botox injections at urologist, he will consider. Assessment & Plan (05/04/2024 3:33 PM EST): Ongoing nocturia and urinary frequency despite triple therapy with oxybutynin, tamsulosin and Myrbetriq. He is followed by urology. Discussed trial of Botox injections at urologist, he will consider. Assessment & Plan (03/03/2023 2:38 PM EST): Followed by urology, will be restarting tamsulosin and additional medication. Osteoarthritis 10/20/2017 Assessment & Plan (03/03/2023 2:38 PM EST): OA of multiple joints, followed by orthopedics in [place], receives CSI in multiple sites. - Continue follow-up with orthopedics Insomnia 10/20/2017 Assessment & Plan (05/04/2024 3:32 PM EST): Will trial trazodone 50mg qhs for insomnia, AE reviewed. Left bundle branch block 10/20/2017 Status post hip replacement, left 10/20/2017 Stage 3a chronic kidney disease 08/17/2013 Assessment & Plan (11/01/2024 4:51 PM EDT): Followed by nephrology, medications are appropriately dosed for renal function. Assessment & Plan (05/04/2024 3:33 PM EST): Followed by nephrology, repeat BMP today. Assessment & Plan (03/03/2023 2:39 PM EST): Followed by nephrology. Resolved Problems Problem Noted Date Diagnosed Date Resolved Date Gross hematuria 02/14/2023 05/04/2024 Assessment & Plan (03/03/2023 2:39 PM EST): Followed by urology, without recurrence of hematuria. Assessment & Plan (02/14/2023 5:13 PM EST): Kevin was recently hospitalized for hematuria at [facility]. I requested records to be reviewed. He is set up with a urologist at [facility]. He is taking his Flomax as directed. He was found to have a UTI during hospitalization and has completed his antibiotics. He denies any dysuria. He notes that his urine was a little pink yesterday but no issues today. I can only speculate on the labs that were done at [facility] but again will review them once they are in the system. He has an appointment with his PCP later this month. He will call if there are any other issues or concerns. He understands and agrees. Pain in joint, multiple sites 01/07/2023 03/03/2023 Assessment & Plan (01/07/2023 10:58 AM EDT): Kevin has multiple joint pains. This been going on for years now. I set him up with rheumatology for consult. He was appreciative. He will call if there are any other issues or concerns. He understands and agrees. Primary osteoarthritis of both knees 01/07/2022 03/03/2023 Hypertension 10/28/2017 03/03/2023 Gout 10/20/2017 03/03/2023 Anxiety state 10/20/2017 03/03/2023 Encounters Date Type Department Care Team Description 12/12/2024 Telephone [place] [address] [place] [address] Amanda Aguilar MD 12/11/2024 Orders Only [address] [place] [address] [place] [address] Amanda Aguilar MD 11/29/[address] [address] Fani Devlin RN calcium scoring 11/15/2024 12:38 PM EDT - 11/15/2024 11:59 PM EDT Hospital Encounter [address] [place] [address] Amanda Aguilar MD Discharge Disposition: Home or Self Care 11/15/2024 Orders Only [address] [address] Amanda Aguilar MD Chronic pain of both shoulders (Primary Dx) 11/02/[address] [address] Christina Byrnes LPN MRI orders 11/01/2024 4:00 PM EDT Office Visit [address] [address] Amanda Aguilar MD Chronic pain of both shoulders (Primary Dx); Presence of right artificial shoulder joint; Presence of left artificial shoulder joint; Cervical radiculopathy; Atrial fibrillation status post cardioversion; Benign essential hypertension; Mixed hyperlipidemia; Idiopathic chronic gout of multiple sites without tophus; Prediabetes; Stage 3a chronic kidney disease; Benign prostatic hyperplasia with urinary frequency 10/19/[address] [address] Amanda Aguilar MD Medication Refill from Last 3 Months Immunizations Immunization Administration Dates Next Due COVID-19 (Pre-01/24) Pfizer Vaccine, mRNA, PF ,07/17/2020 Influenza High-Dose Quadrivalent Preservative Fr ee IM 01/07/2022 Influenza High-Dose Trivalent Preservative Free IM 05/04/2024 Influenza Quadrivalent Adjuvanted Preservative F ree IM 01/31/2023 Influenza Quadrivalent MDCK Preservative Free IM 04/11/2018,02/07/2017 Influenza Trivalent Adjuvanted Preservative free IM 04/25/2020 Influenza trivalent preservative free intraderma l 02/29/2012 Influenza, Unspecified Formulation 02/29/2012, Pneumococcal conjugate PCV20 03/03/2023 Td (adult) 5 Lf Tetanus Toxoid, PF, Adsorbed 07/1996 Td (adult),2 Lf Tetanus Toxoid, PF, Adsorbed Tdap 05/18/2013 Social History Tobacco Use Types Packs/Day Years Used Date Smoking Tobacco: Never Smokeless Tobacco: Never Tobacco Cessation:Counseling Given: Not Answered Child or Family Care Answer Date Record ed Do you have problems with on e of the following making it difficult for you to work, study, or receive health care? No 05/03/2024 Education Answer Date Recorded Are you interested in more education? Not on jacobo e 07/30/2022 Are you concerned about learning? Not on file 07/30/2022 No 07/30/2022 No 07/30/2022 Food Answer Date Recorded Within the past 6 months we worried whether our food would run out before we got money to buy more. Never True 05/03/2024 Within the past 6 months the food we bought just didn't last and we didn't have enough money to get more. Never True Residential Stability Answer Date Recor ded What is your housing situation today? I have bra[place]en sing 05/03/2024 How many times have you move d in the past 12 months? Zero (I did not move) 05/03/2024 Paying for Meds Answer Date Recorded Do you have trouble paying for medicines? No 05/03/2024 Paying Utility Bills Answer Date Record ed Do you have trouble paying your heating or elect ricity bill? No 05/03/2024 Transportation Answer Date Recorded Has the lack of transportati on kept you from medical appointments or from getting medications? No 05/03/2024 Digital Access Answer Date Recorded No 05/03/2024 Yes 05/03/2024 Do you have reliable internet access at home? Ye s 05/03/2024 Do you have a device (e.g., phone, tablet, computer) with a working camera? Yes 05/03/2024 Intimate Partner Violence Answer Date R ecorded Denied Basic Needs Not on file 05/03/2024 In the past 12 months have y ou been in a relationship with a person who hurts, threatens, or tries to control you? No 05/03/2024 Worried food would run out Not on file 05/03 In the past 12 months have y ou been in a relationship with a person who hurts, threatens, or tries to control you? No 05/03/2024 Sex and Gender Information Value Date Recorded Sex Assigned at Not on file Legal Sex Male 9:57 PM EDT Gender Identity Not on file Sexual Orientation Not on file Last Filed Vital Signs Vital Sign Reading Time Taken Comments Blood Pressure 124/76 11/01/2024 4:02 PM EDT Pulse 84 11/01/2024 4:02 PM EDT Temperature 36.6 C (97.8 F) 11/01/2024 4:02 PM EDT Respiratory Rate - - Oxygen Saturation 98% 11/01/2024 4:02 PM EDT Inhaled Oxygen Concentration - - Weight 103 kg (227 lb) 11/01/2024 4:02 PM EDT Height 180.3 cm (5' 10.98 ) 11/01/2024 4:02 PM E DT Body Mass Index 31.68 11/01/2024 4:02 PM EDT Plan of Treatment Upcoming Encounters Date Type Department Care Team (Late st Contact Info) Description 01/16/2025 10:30 AM EDT Office Visit [facility] [address] [place] [address] Amanda Aguilar MD [address] [facility], [address] [place] [address] [email or web address] Health Maintenance Due Date Last Done Comments HEPATITIS C SCREENING 11/26/1971 COLOGUARD 1998 FIT TEST 1998 FOBT 1998 SIGMOIDOSCOPY 1998 VIRTUAL COLONOSCOPY 1998 ZOSTER VACCINES (1 of 2) 11/26/2003 INFLUENZA VACCINE (#1) 2024 , 01/31/2023, 01/07/2022, Additional history exists COVID-19 VACCINE ( season) 2024 04/13/2021, 08/08/2020, 07/17/2020 DEPRESSION SCREENING 05/03/2025 05/03/2024 BLOOD PRESSURE 05/04/2025 11/01/2024 CREATININE LEVEL 05/04/2025 05/04/2024, 12/2022, 01/07/2023, Additional history exists POTASSIUM LEVEL 05/04/2025 05/04/2024, 11/0 12/2022, 01/07/2023, Additional history exists RSV VACCINE (1 - 1-dose 75+ series) 2028 LIPID PANEL 11/15/2029 11/15/2024, 04/06, 01/07/2023, Additional history exists COLONOSCOPY 07/12/2030 07/13/2023, 01/11/2008 COLORECTAL CANCER SCREENING 07/12/2030 Adult Td,Tdap Booster 05/04/2034 05/04/2024 , 05/18/2013, 04/07/1996 PNEUMOCOCCAL VACCINES (50+ years) Completed 03/03/2023 SMOKING STATUS SCREENING (Once After 26 Yrs) Completed 11/01/2024 HEPATITIS A VACCINES Aged Out No long er eligible based on patient's age to complete this topic HIB VACCINES Aged Out No longer eligi ble based on patient's age to complete this topic MENINGOCOCCAL VACCINES (ACWY) Aged Out No longer eligible based on patient's age to complete this topic MENINGOCOCCAL VACCINES (B) Aged Out N o longer eligible based on patient's age to complete this topic Medical Devices Not on file Procedures Procedure Name Priority Date/Time Associated Diagnosis Comments OUTSIDE CT CARDIAC Routine 12/11/2024 9: 25 AM EDT LIPID PANEL Routine 11/15/2024 12:51 PM EDT Mixed hyperlipidemia COMPREHENSIVE METABOLIC PANEL Routine 05/04/2024 3:52 PM EST Screening for condition COLONOSCOPY FOR RESULT ENTRY ONLY Routine 07/13/2023 12:25 PM EDT from Last 3 Months or Most Recently Relevant to Health Maintenance Results * Outside CT Cardiac Report Only (12/11/2024 9:25 AM EDT) Amanda Aguilar MD IMG CT CARDIAC Final Resul t * (ABNORMAL) Lipid panel (11/15/2024 12:51 PM EDT) HDL 44 mg/dL [facility] Comment: Interpretation <40 mg/dL: Low HDL cholesterol (major risk factor for CHD) Greater than or equal to 60 mg/dL: High HDL cholesterol ( negative risk factor for CHD) HDL - cholesterol is affected by a number of factors, e.g. smoking, excerise, hormones, sex and age. CHOLESTEROL 202 0 - 240 mg/dL [facility] TRIGLYCERIDES 122 30 - 160 mg/dL [facility] LDL 134(H) 50 - 129 mg/dL [facility] Comment: LDL levels in terms of risk for coronary heart disease: <100 mg/dL: Optimal 100-129 mg/dL: Near or above optimal 130-159 mg/dL: Borderline high 160-189 mg/dL: High >190 mg/dL: Very High CARDIAC RISK RATIO 4.6 3.4 - 5.0 [facility] Blood 11/15/2024 12:5 1 PM EDT 11/15/2024 12:54 PM EDT Amanda Aguilar MD LAB BLOOD ORDERABLES Final Result [facility] [address] [place] [address] * (ABNORMAL) Comprehensive metabolic panel (05/04/2024 3:52 PM EST) SODIUM 135 133 - 146 mmol/L [facility] POTASSIUM 5.2(H) 3.3 - 5.1 mmol/L [facility] CHLORIDE 98 96 - 108 mmol/L [facility] CO2 26 21 - 35 mmol/L [facility] BUN 24(H) 6 - 19 mg/dL [facility] CREATININE 1.20 0.5 - 1.5 mg/dL [facility] GLUCOSE 117(H) 70 - 99 mg/dL [facility] ALBUMIN 4.6 3.9 - 4.8 g/dL [facility] TOTAL PROTEIN 7.8 6.5 - 8.0 g/dL [facility] CALCIUM 10.0 8.4 - 10.3 mg/dL [facility] ALKALINE PHOSPHATASE 74 39 - 117 U/L [facility] TOTAL BILIRUBIN 0.6 0.0 - 1.2 mg/dL [facility] AST 24 0 - 37 U/L [facility] ALT 19 0 - 40 U/L [facility] GLOBULIN 3.2 1 - 4.8 g/dL [facility] EGFR 65 >59 mL/min/1.7 3m2 [facility] Comment:Estimated glomerular filtration rate calculated using the CKD-EPI refit equation. ANION GAP 16 10 - 20 mmol/L [facility] Blood 05/04/2024 3:52 PM EST 05/04/2024 3:56 PM EST Amanda Aguilar MD LAB BLOOD ORDERABLES Final Result Performing Organization Address City/State/[facility] Co de Phone Number [facility] [address] [place] [address] * COLONOSCOPY FOR RESULT ENTRY ONLY (07/13/2023 12:25 PM EDT) Historical Provider HEALTH MAINTENANCE Final Result from Last 3 Months or Most Recently Relevant to Health Maintenance Insurance MEDICARE PART A & B MEDICARE POS PPO REPLACEMENT Member Subscriber Plan / Payer ( fective 2022-Present) Name:Kevin Vaughn Relation to Subscriber:Self Name:Kevin Vaughn Payer ID:Not on file Type:Medicare Address: [place] [id number] MEDICARE PART A & B [place] MEDICARE [place] [address] MEDICARE PART A & B Member Subscriber Plan / Payer (Ef fective 2022-) Name:Kevin Vaughn Member ID:[id number] Relation to Subscriber:Self Name:Kevin Vaughn Subscriber ID:[id number] Payer ID:[id number] Group ID:Not on file Type:Medicare Address: [employer] [address] MEDICARE POS PPO REPLACEMENT MEDICARE PART A & B Member Subscriber Plan / Payer (Ef fective 2022-) Name:Kevin Vaughn Member ID:[id number] Relation to Subscriber:Self Name:Kevin Vaughn Subscriber ID:[id number] Payer ID:[id number] Group ID:Not on file Type:Medicare Address: [employer] [address] [place] [phone] [place] [address] MEDICARE POS PPO REPLACEMENT MEDICARE PART A & B MEDICARE POS PPO REPLACEMENT MEDICARE PART A & B [place] MEDICARE POS PPO REPLACEMENT Care Teams Geoint Analyst Relationship Specialty Start Date End Date Amanda Aguilar MD [address] [place] [address] [address] [place] [id number] [email or web address] PCP - General Family Medicine 02/01/23 Trav Whaley MD [address] [place] [address] [address] [place] [address] [email or web address] Historical LMR Provider 01/22/17 Additional Source Comments The information contained in this document represents components of the legal health record. It is not the complete legal health record[facility]
--- OUTSIDE RECORDS SUMMARY | 2024-12-26 14:51 | XMS_ITS | Encounter Summary ---
Author Organization [facility] Address [address] [place] [id number] Phone Care Team Providers Care Stock Mixer Name Role Phone Trav Whaley MD Unavailable [phone] Amanda Aguilar MD Primary Care Provider Reason for Visit * Reason Onset Date Comments calcium scoring 11/29/2024 Encounter Details Date Type Department Care Team (Late st Contact Info) Description 11/29/2024 Telephone [facility] Medicine [address] [place], [place] [phone] Fani Devlin, RO [address] [place], [place] [phone] [email or web address] calcium scoring Social History Tobacco Use Types Packs/Day Years Used Date Smoking Tobacco: Never Smokeless Tobacco: Never Child or Family Care Answer Date Record [...] your housing situation today? I have bra[place]en holm 05/03/2024 How many times have you move [...] on file documented as of this encounter Progress Notes * Fani Devlin RN - 11/29/2024 11:41 AM EDT Delma Moreno Cmg, Rn; P Cmg Radiology Prior Auth Good morning, Kevin's Cardiac Calcium Scoring was denied Outgoing call to patient to inform [facility] does not cover this test and order will be sent to [facility].Patient was given [facility] scheduling phone number for follow up. Order faxed. Patient reports 05/28/23 xrays were done at [facility]. Patient wanted to make sure Dr. Ordonez is aware. Per [facility], they mentioned he may need MRI. Patient was advised MRIs are ordered and Dr. Ordonez's message on order was relayed to patient. Patient states lorazepam does not work for him, and plans to call his insurance company to see if they will cover a facility out of state that does MRIs with sedation. Patient states he will call back if referral from PCP is needed. FYI To Dr. Ordonez documented in this encounter Plan of Treatment Upcoming Encounters Date Type Department Care Team ([facility] st Contact Info) Description 01/16/2025 10:30 AM EDT Office Visit [facility] [address] [place] [address] Amanda Aguilar MD [address] [phone] [email or web address] documented as of this encounter Visit Diagnoses Not on filedocumented in this encounter Additional Health Concerns Assessment Noted Time PHQ-2 Depression Total Score: 0 05/03/19 25 4:11 PM EST documented as of this encounter Care Teams Stock Mixer Relationship Specialty Start Date End Date Amanda Aguilar MD [address] [place] [id number] [email or web address] PCP - General Family Medicine 02/01/23 Trav Whaley MD [address] [place] [address] 7 [place] [address] [email or web address] Historical LMR Provider 01/22/17 documented as of this encounter Additional Source Comments The information contained in this document represents components of the legal health record. It is not the complete legal health record.[facility]
--- OUTSIDE RECORDS SUMMARY | 2024-12-26 14:51 | XMS_ITS | Encounter Summary ---
Author Organization [facility] Address [address] [place] [address] [address] [place] [address] Phone Care Team Providers Care Claims Adjuster Supervisor Name Role Phone Trav Whaley MD Unavailable [phone] Amanda Aguilar MD Primary Care Provider [phone] Reason for Referral * MRI/CAT Scan - Closed Specialty Diagnoses / Procedures Referred By Liberty johnston Referred To Contact Radiology Procedures Outside CT Cardiac Report Only Amanda Aguilar MD 234 [facility] [address] [place] [address] Phone: tel: fax: mailto:[email or web address] Referral ID Status Reason Start Date Expiration Date Visits Re quested Visits Authorized [id number] Closed 12/11/2024 1 1 Encounter Details Date Type Department Care Team (Late st Contact Info) Description 12/11/2024 Orders Only [facility] Medicine 234 [place] [address] Amanda Aguilar MD 234 [facility] 7 [place] [address] [email or web address] Social History Tobacco Use Types Packs/Day Years [...] Description 01/16/2025 10:30 AM EDT Office Visit [facility] [address] [place] [address] Amanda Aguilar MD 234 [facility] [address] [place] [address] [email or web address] documented as of this encounter Procedures Procedure Name Priority Date/Time Associated Diagnosis Comments OUTSIDE CT CARDIAC Routine 12/11/2024 9:25 AM EDT documented in this encounter Results * Outside CT Cardiac Report Only (12/11/2024 9:25 AM EDT) Amanda Aguilar MD IMG CT CARDIAC Final Resul t documented in this encounter Visit Diagnoses Not on filedocumented in this encounter Additional Health Concerns Assessment Noted Time PHQ-2 Depression Total Score: 0 05/03/19 25 4:11 PM EST documented as of this encounter Care Teams Claims Adjuster Supervisor Relationship Specialty Start Date End Date Amanda Aguilar MD [address] [place] [address] [place] [address] [email or web address] PCP - General Family Medicine 02/01/23 Trav Whaley MD [address] [place] [address] [place] [address] [email or web address] Historical LMR Provider 01/22/17 documented as of this encounter Additional Source Comments The information contained in this document represents components of the legal health record. It is not the complete legal health record.[facility]
--- OUTSIDE RECORDS SUMMARY | 2024-12-26 14:51 | XMS_ITS | Clinical Summary ---
Author Organization [facility] Address [address] [facility] [address] [place] [address] Phone Care Team Providers Care Pedodontist Name Role Phone Lauren Amanda Seay Primary Care Provider + Allergies Active Allergy [...] (one) time each day 90 tablet 3 08/29/2024 Active gabapentin (NEURONTIN) 100 MG capsule 300 mg 09/18/2024 Active amLODIPine (NORVASC) 5 MG tabletIndicatio ns:Stage 3a chronic kidney disease (HCC),Hypertens ion,Proteinuria , not otherwise specified Take 1 tablet (5 mg total) by mouth 1 (one) time each day 30 tablet 11 10/09/2024 Active Active Problems Problem Noted Date Diagnosed [...] Encounters Date Type Department Care Team Description 10/09/2024 10:15 AM EDT Office Visit [facility] [address] [place] [address] [phone] Fani Friedman ARNP Stage 3a chronic kidney disease (HCC) (Primary Dx); Hypertension; Hypercalcemia; Proteinuria, not otherwise specified from Last 3 Months Immunizations Immunization Administration Dates Next Due Influenza Split Preservative [...] Sign Reading Time Taken Comments Blood Pressure 140/90 10/09/2024 10:47 AM EDT Pulse 70 10/09/2024 10:19 AM EDT Temperature - - Respiratory Rate - - Oxygen Saturation 96% 10/09/2024 10:19 AM EDT Inhaled Oxygen Concentration - - Weight 102 kg (224 lb) 10/09/2024 10:19 AM EDT Height 180.3 cm (5' 11 ) 09/10/2021 1:04 PM EDT Body Mass Index 31.24 09/10/2021 1:04 PM EDT Plan of Treatment Upcoming Encounters Date Type Department Care Team (Late st Contact Info) Description 01/09/2025 4:45 PM EDT Office Visit [facility] [address] [phone] Fani Friedman ARNP [address] [phone] Health Maintenance Due Date Last Done Comments Pneumococcal Vaccine: 50+ Years (1 of 2 - PCV) 1972 Colorectal Cancer Screening: Annual FOBT 2002 Colorectal Cancer Screening: Colonoscopy 2002 Colorectal Cancer Screening: Sigmoidoscopy 2002 Influenza Vaccine (#1) 2024 5, 01/31/2023, 04/25/2020, Additional history exists Hepatitis B Vaccine Aged Out No longe r eligible based on patient's age to complete this topic Insurance [facility] [place] [facility] Care Teams Pedodontist Relationship Specialty Start Date End Date Amanda Aguilar [address] [place] [address] 7 JESSICA Perdomo [address] PCP - General Internal Medicine 06/07/23
[2024-12-27 12:29] LABS: Free Prostate Spec Ag 1.0 ng/mL; Percent Free Prostate Spec Ag 20 % (calc) (>25)
== END 2024-12-26 11:52 | disposition home or self-care (01) ==
LOC: HO.LAB 11:51
PROVIDERS: PCP Family Medicine; Visit Provider Urology
DX: Z12.5 Encounter for screening for malignant neoplasm of prostate (principal)
CPT/HCPCS: 36415; 84153; 84154

== ENCOUNTER 2025-01-21 07:22 | Outpatient (AMB) | payer MEDICARE, SELFPAY ==
--- OUTSIDE RECORDS SUMMARY | 2025-01-16 10:30 | XMS_ITS | Encounter Summary ---
Author Organization [facility] Address [address] [place] [address] [place] [phone] Phone Care Team Providers Care Career Technical Education Teacher Name Role Phone Trav Whaley MD Unavailable [phone] Amanda Aguilar MD Primary Care Provider [phone] Reason for Referral * Consultation (Within 2 weeks) - New Request Specialty Diagnoses / Procedures Referred By Liberty johnston Referred To Contact Diagnoses Cervical radiculopathy Lumbar radiculopathy Amanda Aguilar MD 234 [facility], [address] [place] [address] Phone: tel: fax: mailto:[email or web address] Mack Bazan MD [address] [place] [address] [facility] [address] [place] [address] Phone: tel: fax: Referral ID Status Reason Start Date Expiration Date V isits Requested Visits Authorized [id number] New Request 01/16/2025 01/16/2026 1 1 Scheduling Instructions A nurse from your PCP's office will schedule your appointment and contact you. Please call your PCP's office with questions. [facility] Neurosurgery- Dr. 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 pectoris (Primary Dx); Cervical radiculopathy; Lumbar radiculopathy; Mixed hyperlipidemia; Benign essential hypertension; Numbness and tingling; Status post right knee replacement; Chronic pain of both shoulders; Primary osteoarthritis of both knees Social History Tobacco Use Types Packs/Day Years [...] Sign Reading Time Taken Comments Blood Pressure 122/80 01/16/2025 10:23 AM EDT Pulse 66 01/16/2025 10:23 AM EDT Temperature 36.7 C (98 F) 01/16/2025 10:23 AM EDT Respiratory Rate - - Oxygen Saturation 98% 01/16/2025 10:23 AM EDT Inhaled Oxygen Concentration - - Weight 102.1 kg (225 lb) 01/16/2025 10:23 AM EDT Height 180.3 cm (5' 10.98 ) 01/16/2025 10:23 AM EDT Body Mass Index 31.4 01/16/2025 10:23 AM EDT documented in this encounter Patient Instructions * Patient Instructions* Amanda Aguilar MD - 01/16/2025 10:30 AM EDT The two questions for the art glass setter: do you need a repeat stress test, do you need a cath? For the arthritis you can try either glucosamine-chondroitin or turmeric supplement documented in this encounter Progress Notes * Amanda Aguilar MD - 01/16/2025 10:30 AM EDT Subjective Kevin Vaughn is a 69 y.o. male. History of Present Illness Kevin Vaughn is a 69 year old male with chronic pain and cardiovascular concerns who presents for follow-up on multiple health issues. He experiences ongoing issues with his neck, shoulders, and hands, including numbness and tingling in his hands, which he believes may be related to his shoulder issues. He also has difficulty turning his neck, which has not improved. He has a history of arthritis in his hands and recently received cortisone injections in his thumbs, noting some improvement in one thumb but not the other. X-rays were taken to assess the chronic condition. He experiences numbness in his feet, particularly in the toes on the outside of his right foot and some numbness in his left foot. He also reports sharp, needle-like pains in his feet. His knee, which underwent replacement surgery, remains problematic, with swelling and a sensation of heaviness described as 'a bunch of cement.' He is disappointed with the outcome of the surgery. He reports widespread pain in his hands, knees, neck, shoulders, and feet, which worsens at night. He has resumed working and finds the pain impacts his ability to concentrate. He has been taking gabapentin, which initially helped with sleep but caused dizziness. He stopped it for two weeks but resumed due to increased pain during work. He finds it provides some relief but causes him to feel 'loop y.' He has concerns about his cardiovascular health following a CT heart scan that showed a high score.He has a history of a nuclear stress test last summer, which was unremarkable. He is currently taking a baby aspirin and has been on statins for five weeks. He has a history of urological issues and has discontinued medications prescribed by his urologist as they were ineffective. He is trying to maintain physical activity by walking, using the elliptical, and stretching, but has stopped more strenuous activities until his condition improves. He is considering supplements suchas glucosamine, chondroitin, and turmeric for arthritis. Review of Systems Objective Physical Exam Results RADIOLOGY CT heart scan: Calcium score 1500 Hand X-ray: Severe arthritis, calcific tendinosis, chondrocalcinosis (01/11/2025) DIAGNOSTIC Nuclear stress test: Normal (Summer 2023) Assessment & Plan Coronary artery calcification with hyperlipidemia Severe coronary artery calcification with a score of 1500. Now on ASA 81mg daily as well as rosuvastatin 40mg daily - Discuss with art glass setter the need for a repeat stress test or cardiac catheterization. - Continue statin therapy. - Continue baby aspirin. - Repeat cholesterol levels and liver function tests next week. - Encourage dietary modifications focusing on lean proteins and reducing carbohydrates. Cervical spinal stenosis Persistent numbness and tingling in hands and feet likely due to cervical spinal stenosis. Difficulty obtaining MRI due to inability to tolerate open MRI. - Obtain upright MRI and confirm acceptance by neurologist. - Contact insurance company regarding MRI coverage. - Follow up with neurosurgeon after MRI results are available. Bilateral shoulder pain due to osteoarthritis, bone spurs, and calcific tendinosis Chronic bilateral shoulder pain with osteoarthritis, bone spurs, and calcific tendinosis. Discussedpotential for calcific tendinosis to indicate prior tears and scar tissue formation. - Send MRI results to orthopedist for shoulder evaluation. - Consider glucosamine, chondroitin, or turmeric supplements for arthritis. 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 Some improvement noted in one thumb. - Monitor response to corticosteroid injections. - Consider glucosamine, chondroitin, or turmeric supplements for arthritis. Chronic bilateral knee pain and dysfunction, status post knee replacement Chronic bilateral knee pain and dysfunction post knee replacement. Swelling and persistent pain noted. - Monitor knee symptoms and consider follow-up with orthopedic surgeon if no improvement. Lower urinary tract symptoms Lower urinary tract symptoms with previous medication trials ineffective. Decision to delay furtherurology interventions. Follows with urology. - Discuss management options with urologist during phone appointment. - Delay further urology interventions until other health issues are addressed. Benign essential hypertension Blood pressure is well-controlled on current medication regimen. General Health Maintenance Flu vaccination offered and accepted. Discussion on dietary modifications for overall health improvement. - Administer flu shot. - Encourage dietary modifications focusing on lean proteins and reducing carbohydrates. I obtained verbal consent from the patient or their proxy to record this visit for purposes of producing a draft of the encounter documentation. documented in this encounter Plan of Treatment Upcoming Encounters Date Type Department Care Team (Late st Contact Info) Description 04/18/2025 4:30 PM EST Office Visit [facility] Medicine [address] [place] [address] Amanda Aguilar MD 234 [facility] 7 [place] [address] [email or web address] Scheduled Orders Name Type Priority Associated Diagnoses Orde r Schedule Lipid panel Lab Routine Mixed hyperlipidemia Expected: 01/16/2025, Expires: 01/16/2026 LFTs (hepatic panel) Lab Routine Mixed hyperlipidemia Expected: 01/16/2025, Expires: 01/16/2026 Scheduled Referrals Name Type Priority Associated Diagnoses Orde r Schedule [facility] Neurosurgery- Dr. 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- Primary Cervical radiculopathy Brachial neuritis or radiculitis nos Lumbar radiculopathy Thoracic or lumbosacral neuritis or radiculitis, unspecified Mixed hyperlipidemia Benign essential hypertension Essential hypertension, benign Numbness and tingling Disturbance of skin sensation Status post right knee replacement Chronic pain of both shoulders Primary osteoarthritis of both knees documented in this encounter Additional Health Concerns Assessment Noted Time PHQ-2 Depression Total Score: 0 05/03/19 25 4:11 PM EST documented as of this encounter Care Teams Career Technical Education Teacher Relationship Specialty Start Date End Date Amanda Aguilar MD [address] [place] [address] 7 [place] [address] [email or web address] PCP - General Family Medicine 02/01/23 Trav Whaley MD [address] [place] [address] 7 [place] [address] [email or web address] Historical LMR Provider 01/22/17 documented as of this encounter Additional Source Comments The information contained in this document represents components of the legal health record. It is not the complete legal health record.[facility]
--- NOTE | 2025-01-21 07:23 | MHC.OFFVIS ---
Intake Visit Reasons: 9m/PSA Intake Note: Patient is Present for 9 mo Telehealth Follow Up Urology Medication: Sildenafil, Myrbetriq,Allopurinol Antibiotic Allergies: None Blood Thinners:Eliquis Last PVR:20ML Railroad Signal Operator Required: No Accompanied by: Self / Same As Patient Allergies No Known Drug Allergies Allergy (Unknown, Verified 01/21/25 07:25) NONE lexiscan Adverse Reaction (Uncoded 04/02/24 14:28) bradycardia, dizziness Medication List - Last Reconciled 01/21/25 by Catina Bradshaw MD acetaminophen 1,000 mg PO Q6H PRN allopurinol 300 mg PO DAILY amlodipine (Norvasc) 5 mg PO DAILY apixaban (Eliquis) 5 mg PO BID ascorbic acid (vitamin C) (Vitamin C) 1,000 mg PO DAILY clonazepam 0.5 mg PO DAILY PRN losartan 100 mg PO DAILY mirabegron ER (Myrbetriq) 50 mg PO DAILY montelukast 10 mg PO BEDTIME propranolol 80 mg PO BID sildenafil 50 mg PO DAILY PRN HPI Comments Details: 01/21/25--Santosh is presenting for telehealth follow-up for PSA screening. He has lower urinary tract symptoms urgency and nocturia. He was prescribed Myrbetriq and tamsulosin. He states that he has stopped these medications as he is concerned about side effects. He has been noticing more fatigue. Other medical issues include elevation in cholesterol and renal function. I have reviewed recent PSA 12/26/2024 is 4.14 ng/mL. He continues to have urgency every 2-3 hours during the day. He is also having nerve pain and wakes up during the night because of the pain. We will reassess his bladder and monitor postvoid residual and PSA. Follow-up in 6 months. 04/02/24--Kevin is here for follow-up. He has lower urinary tract symptoms of urgency and nocturia. He is currently on combination medication of tamsulosin Myrbetriq and oxybutynin. He did not complete blood work for PSA screening as yet. He states that he is still getting up frequently but he is able to make it to the bathroom without leaking on himself. Urinalysis is negative bladder scan PVR 20 mL. Will cont medication management. oxybutynin 5 mg. 10/03/23---Here for fu, complains of urinary frequency, LV 04/07/23, on tamsulosin, trial of gemtesa for LUTS of urinary freq with no improvement. Pt not interested in alternative therapies including sacral neuromodulation. Will try combination Myrbetriq and oxybutynin. Cont tamsulosin. PSA screening. 04/07/23--presents today for a telehealth follow-up. Kevin is a 67-year-old male who was evaluated in the hospital for gross hematuria and urinary retention. He is a status post Cystoscopy evacuation of bladder clots and bladder biopsy done on 01/18/2023. He was started on Flomax in the hospital. He was last seen in the office on 02/16/2023 and started on Gemtesa. The patient states he feels the flomax is helping but is not sure the gemtesa is helping although he reports decrease in daytime bathroom visits and in nocturia from 3-4 times to 2-3 times. I discussed to watch caffeine intake, the patient states he has to have surgery on his left knee and his shoulder is also bothering him He wants to continue tamsulosin but stop the gemtesa to see if the med was actually helping. 01/18/2023---pathology report of bladder biopsy noted congestion and inflammation-- 02/16/23--He states that he had been treated with multiple medications for the bladder symptoms which did not work. He states that the last thing discussed was botox bladder injection; however, the patient is concerned about the side effects of urinary retention. He has raised some concerns regarding erectile dysfunction. I want him to check with his cardio there are no contraindications in using Viagra. [facility] Medical History Bronchitis Cough Cough due to bronchospasm Allergic rhinitis Paroxysmal atrial fibrillation LBBB (left bundle branch block) HTN (hypertension) Surgical History History of knee surgery History of hip surgery Family History Father Myocardial infarction Mother Diabetes Social History Household Members: None Housing: Condominium Do you presently have visiting nurse or other home services: No Alcohol intake: current Alcohol intake frequency: a few times a week Alcohol type: beer Patient Tobacco Use Status: Never used Tobacco Second Hand Smoke Exposure: No service: No Review of Systems Const All systems reviewed & are unremarkable except as noted in HPI and below Reports no additional complaints Eyes Reports no additional complaints ENT Reports no additional complaints Card Reports no additional complaints Resp Reports no additional complaints GI Reports no additional complaints Reports as per HPI Musc Reports no additional complaints Skin/Breast Reports system reviewed and no additional complaints, except as documented Neuro Reports no additional complaints Psych Reports no additional complaints Endo Reports no additional complaints Hammad/Lymph Reports no additional complaints Aller/Immun Reports no additional complaints Telehealth Telehealth Telehealth Platform: [employer] Location of provider rendering services: practice address Location of patient: address on file Patient Identification confirmed using: Name, : Yes Telehealth method: video Patient verbally consented to treatment: Yes Patient verbally consented to billing insurance company: Yes Patient informed of any privacy concerns related to visit: Yes Results Reviewed Results Reviewed: Diagnosis Bladder, irregular change, biopsy: Completely denuded urothelial stroma with inflammation, hemorrhage, and edema. Comment: There is no epithelium present for evaluation. Consider re-biopsy if clinical suspicion warrants. Clinical History UTI hematuria Microscopic Description Multiple microscopic sections reviewed. Material Received Bladder bx's irregular change Gross Description Received in formalin labeled ?bladder bx's, irregular change? are 2 congested and hemorrhagic versus pigmented oakley-brown irregular tissue fragments each measuring 0.5 cm in greatest dimension which are submitted in toto in a single cassette labeled A. Date of Service: 01/16/23 EXAMINATION: CT ABDOMEN AND PELVIS WITHOUT AND WITH CONTRAST [CT UROGRAM] CLINICAL INFORMATION: Gross hematuria. Evaluate for kidney stone versus malignancy. COMPARISON: None. FINDINGS: IMAGED THORAX: The visualized lung bases are unremarkable. GENITOURINARY: The kidneys are normal in size, axis, morphology and parenchymal attenuation with symmetric uptake and excretion of contrast bilaterally. No hydronephrosis, hydroureter or perinephric abnormality. No filling defects within the renal pelves, ureters or bladder. No urinary calculi. There are a few bilateral subcentimeter renal cysts which are benign. No follow-up imaging recommended. No suspicious renal cyst or mass. Ureters are normal in course and caliber. Bladder is decompressed by Van catheter. On the unenhanced images, there is layering hyperdensity compatible with blood/blood clot. Expected small gas within the bladder in the setting of catheterization. Prostate is mildly enlarged measuring up to 5.5 cm transversely. Seminal vesicles unremarkable. LIVER, GALLBLADDER, AND BILIARY TREE: The liver is normal in size, shape, and attenuation. No focal hepatic lesion or biliary ductal dilatation is present. The gallbladder is unremarkable with no evidence of radiopaque gallstones, gallbladder wall thickening, or obvious pericholecystic inflammatory changes. PANCREAS: Unremarkable. SPLEEN: Unremarkable. ADRENAL GLANDS: Unremarkable. GASTROINTESTINAL TRACT: The small and large bowel are unremarkable. The appendix is unremarkable. ABDOMINAL WALL: Small fat-containing umbilical hernia. Small bilateral fat-containing direct inguinal hernias. LYMPH NODES: Normal. VASCULAR: Aorta is atherosclerotic but normal caliber. Patent vascular structures. OSSEOUS STRUCTURES: No acute or suspicious osseous abnormalities. Intact left total hip arthroplasty. IMPRESSION: * No etiology for the patient's hematuria is identified within the kidneys, ureters or bladder. No urinary calculi. * Hematocrit level within the bladder in keeping with the provided history of gross hematuria, the source of which is unclear from an anatomic imaging standpoint. * Mild prostatomegaly. 11/17/22 as well as KIB 02/09/23. Assessment & Plan Assessment & Plan (1) Elevated PSA: Code(s): R97.20 - Elevated prostate specific antigen [PSA] Category: Medical (2) Screening PSA (prostate specific antigen): Code(s): Z12.5 - Encounter for screening for malignant neoplasm of prostate Category: Medical (3) BPH loc w urin obs/LUTS: Code(s): N40.1 - Benign prostatic hyperplasia with lower urinary tract symptoms Category: Medical (4) Urinary frequency: Code(s): R35.0 - Frequency of micturition Category: Medical (5) OAB (overactive bladder): Code(s): N32.81 - Overactive bladder Category: Medical Plan Follow-up in 6 months recheck PSA office cystoscopy, monitor PVR Orders: Orders PSA,Total (Free>4and<10) 5 Months R97.20 - Elevated prostate specific antigen [PSA] Medications: Discontinued mirabegron ER (Myrbetriq) Discontinued Reason: Patient no longer taking 50 mg PO DAILY 90 tabs 3RF Patient Instructions: The patient had an opportunity to ask questions regarding treatment plan. The patient expressed understanding and agreement with the above treatment plan. The patient is aware they should contact our office by phone for worsening of their current condition or the appearance of new symptoms. Compliance is encouraged with any medications and followup testing that is ordered. It is a privilege to be allowed the opportunity to participate in the urologic care of your patient. If you have any questions or concerns regarding treatment for the above conditions please do not hesitate to contact me. The office telephone contact is [phone]. This note is constructed in part using voice recognition software. While every effort has been made to ensure accuracy auctioneer art errors may have been included. Yours sincerely, Catina Bradshaw MD Coding Level of Care Code Tele Est Pt Level 4 (29127) Diagnoses Elevated PSA R97.20 Screening PSA (prostate specific antigen) Z12.5 BPH loc w urin obs/LUTS N40.1 Urinary frequency R35.0 OAB (overactive bladder) N32.81
--- OUTSIDE RECORDS SUMMARY | 2025-01-21 07:24 | XMS_ITS | Clinical Summary ---
Author Organization [facility] Address [address] [place] [address] Phone Care Team Providers Care Bryologist Name Role Phone MarthaNickyJosé Luis Amanda Seay Primary Care Provider + Allergies [...] 10/20/2017 Stage 1 chronic kidney disease 08/17/2013 Immunizations Immunization Administration Dates Next Due Influenza [...] Care Team (Late st Contact Info) Description 02/19/2025 8:15 AM EST Office Visit [facility] [address] [address] Fani Friedman ARNP [address] [address] Health Maintenance Due Date Last Done Comments Pneumococcal Vaccine: 50+ Years (1 of 2 - PCV) 1972 Colorectal Cancer Screening: Annual FOBT 2002 Colorectal Cancer Screening: Colonoscopy 2002 Colorectal Cancer Screening: Sigmoidoscopy 2002 Influenza Vaccine (#1) 2024 5, 01/31/2023, 04/25/2020, Additional history exists Hepatitis B Vaccine Aged Out No longe r eligible based on patient's age to complete this topic Insurance [facility] [place] [id number] [facility] MCR Care Teams Bryologist Relationship Specialty Start Date End Date Amanda Aguilar [address] [place] [address], [address] [place] [id number] PCP - General Internal Medicine 06/07/23
--- OUTSIDE RECORDS SUMMARY | 2025-01-21 07:24 | XMS_ITS | Clinical Summary ---
Author Organization [facility] Address [address] [place] [id number] Phone Care Team Providers Care Communications Coordinator Name Role Phone Trav Whaley MD Unavailable [phone] Amanda Aguilar MD Primary Care Provider Allergies Active Allergy Reactions Criticality Noted Date Comments Meloxicam Other (See Comments) High 06/05/2024 Dizziness, low b/p Medications acetaminophen (TYLENOL) 500 MG tablet Take by mouth every 6 (six) hours as needed. Active allopurinol (ZYLOPRIM) 300 MG tabletIndication s:Gout Take 1 tablet (300 mg total) by mouth daily. 90 tablet 2 Active fluticasone propionate (FLONASE) 50 mcg/actuation nasal spray 1 spray by Nasal route daily. Active apixaban (ELIQUIS) 5 mg tablet Take 5 mg by mouth 2 (two) times a day. Active sildenafiL (VIAGRA) 50 mg tablet PLEASE SEE ATTACHED FOR DETAILED DIRECTIONS 3 Active losartan (COZAAR) 100 MG tabletIndication s:Benign essential hypertension TAKE 1 TABLET BY MOUTH EVERY DAY 90 tablet 5 Active propranoloL (INDERAL) 80 MG immediate release tabletIndication s:HTN (hypertension) TAKE 1 TABLET BY MOUTH 2 TIMES A DAY. 180 tablet 3 5 Active gabapentin (NEURONTIN) 100 MG capsule Take 300 mg by mouth 2 (two) times a day. 5 Active amLODIPine (NORVASC) 5 MG tablet Take 5 mg by mouth daily. Active rosuvastatin (CRESTOR) 40 MG tablet Take 1 tablet (40 mg total) by mouth daily. 90 tablet 1 5 Active clonazePAM (KLONOPIN) 0.5 MG tabletIndication s:Anxiety state Take 1 tablet (0.5 mg total) by mouth 2 (two) times a day as needed for anxiety. 30 tablet 5 Active oxyBUTYnin (DITROPAN-XL) 5 MG 24 hr tablet take 1 tablet by mouth everyday at bedtime 4 025 Discontin ued(No longer taking) montelukast (SINGULAIR) 10 mg tablet TAKE 1 TABLET BY MOUTH AT BEDTIME 90 tablet 1 5 025 Discontin ued(No longer taking) clonazePAM (KLONOPIN) 0.5 MG tabletIndication s:Anxiety state Take 1 tablet (0.5 mg total) by mouth 2 (two) times a day as needed for anxiety. 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 If not then we will refer to [...] under anesthesia would be a possibility at [facility]. If not then we will refer to [...] XR L- Spine. 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 - Recommended dose reduction of allopurinol to [...] (11/01/2024 4:42 PM EDT): Followed by cardiology, PINA with Rodriguez, not on rate controlling medication aside from propranolol. Assessment & Plan (05/04/2024 3:09 PM EST): Followed by cardiology, PINA with Rodriguez, not on rate controlling medication aside from propranolol. Assessment & Plan (03/03/2023 2:35 PM EST): Followed by cardiology, PINA with Rodriguez, not on rate controlling medication [...] of multiple joints, followed by orthopedics in [place], receives CSI in multiple sites. - Continue [...] Kevin was recently hospitalized for hematuria at [facility]. I requested records to be reviewed. He is set up with a urologist at [facility]. He is taking his Flomax as directed. He was found to have a UTI during hospitalization and has completed his antibiotics. He denies any dysuria. He notes that his urine was a little pink yesterday but no issues today. 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 (Primary Dx); Cervical radiculopathy; Lumbar radiculopathy; Mixed hyperlipidemia; Benign essential hypertension; Numbness and tingling; Status post right knee replacement; Chronic pain of both shoulders; Primary osteoarthritis of both knees 01/10/2025 1:21 PM EDT - 01/10/2025 11:59 PM EDT Hospital Encounter [address] [place] [address] Amanda Mcgill MD Discharge Disposition: Home or Self Care 01/10/2025 1:21 PM EDT - 01/10/2025 11:59 PM EDT Hospital Encounter [address] [place] [address] Amanda Mcgill MD Discharge Disposition: Home or Self Care 12/27/2024 Orders Only [facility] [address] [place] [address] Amanda Mcgill MD Chronic pain of both shoulders (Primary Dx) 12/12/2024 Telephone [facility] [address] [place] [address] Amanda Mcgill MD 12/11/2024 Orders Only [facility] [address] [place] [address] Amanda Mcgill MD 11/29/2024 Telephone [facility] [address] [place] [address] Fani Devlin RN calcium scoring 11/15/2024 12:38 PM EDT - 11/15/2024 11:59 PM EDT Hospital Encounter [facility] [address] [place] [address] [place] [address] Amanda Mcgill MD Discharge Disposition: Home or Self Care 11/15/2024 Orders Only [facility] [address] [place] [address] Amanda Mcgill MD Chronic pain of both shoulders (Primary Dx) 11/02/2024 Telephone [facility] [address] [place] [address] Christina Byrnes LPN MRI orders 11/01/2024 4:00 PM EDT Office Visit [facility] [address] [place] [address] Amanda Mcgill MD Chronic pain of both shoulders (Primary Dx); Presence of right artificial shoulder joint; Presence of left artificial shoulder joint; Cervical radiculopathy; Atrial fibrillation status post cardioversion; Benign essential hypertension; Mixed hyperlipidemia; Idiopathic chronic gout of multiple sites without tophus; Prediabetes; Stage 3a chronic kidney disease; Benign prostatic hyperplasia with urinary frequency from Last 3 Months Immunizations Immunization Administration Dates Next Due COVID-19 (Pre-01/24) Pfizer Vaccine, mRNA, PF ,07/17/2020 Influenza High-Dose Quadrivalent Preservative Fr ee IM 01/07/2022 Influenza High-Dose Trivalent Preservative Free IM 01/16/2025,05/04/2024 Influenza Quadrivalent Adjuvanted Preservative F ree IM [...] Mass Index 31.4 01/16/2025 10:23 AM EDT Plan of Treatment Upcoming Encounters Date Type Department Care Team (Late st Contact Info) Description 04/18/2025 4:30 PM EST Office Visit [facility] [address] [place] [address] Amanda Aguilar MD [address] [facility], [address] [place] [address] [email or web address] Health Maintenance Due Date Last Done Comments HEPATITIS C SCREENING 11/26/1971 COLOGUARD 1998 FIT TEST 1998 FOBT 1998 SIGMOIDOSCOPY 1998 VIRTUAL COLONOSCOPY 1998 ZOSTER VACCINES (1 of 2) 11/26/2003 COVID-19 VACCINE ( season) 2024 04/13/2021, 08/08/2020, 07/17/2020 DEPRESSION SCREENING 05/03/2025 05/03/2024 CREATININE LEVEL 05/04/2025 05/04/2024, 12/2022, 01/07/2023, Additional history exists POTASSIUM LEVEL 05/04/2025 05/04/2024, 11/0 12/2022, 01/07/2023, Additional history exists BLOOD PRESSURE 07/17/2025 01/16/2025 RSV VACCINE (1 - 1-dose 75+ series) 2028 COLONOSCOPY 07/12/2030 07/13/2023, 01/11/2008 COLORECTAL CANCER SCREENING 07/12/2030 Adult Td,Tdap Booster 05/04/2034 05/04/2024 , 05/18/2013, 04/07/1996 PNEUMOCOCCAL VACCINES (50+ years) Completed 03/03/2023 INFLUENZA VACCINE Completed 01/16/2025, , 01/31/2023, Additional history exists SMOKING STATUS SCREENING (Once After 26 Yrs) Completed 01/16/2025 HEPATITIS A VACCINES Aged Out No long [...] Procedure Name Priority Date/Time Associated Diagnosis Comments XR SHOULDER 2 VIEWS (LEFT) Routine 01/10/2025 2:19 PM EDT Chronic pain of both shoulders XR SHOULDER 2 VIEWS (RIGHT) Routine 01/10/2025 2:15 PM EDT Chronic pain of both shoulders OUTSIDE CT CARDIAC Routine 12/11/2024 9: 25 AM EDT LIPID PANEL Routine 11/15/2024 12:51 PM EDT Mixed hyperlipidemia COMPREHENSIVE METABOLIC PANEL Routine 05/04/2024 3:52 PM EST Screening for condition HM COLONOSCOPY FOR RESULT ENTRY ONLY Routine 07/13/2023 12:25 PM EDT from Last 3 Months or Most Recently Relevant to Health Maintenance Results * XR SHOULDER 2 VIEWS (LEFT) (01/10/2025 2:19 PM EDT) Anatomical Region Laterality Modality Shoulder Left Computed Radiogr aphy 01/11/2025 3:59 PM EDT Impressions 01/11/2025 4:01 PM EDT 1. Moderate to severe right and moderate left glenohumeral joint degenerative changes. 2. Moderate bilateral acromioclavicular joint degenerative changes. 3. Left rotator cuff calcific tendinosis. Narrative 01/11/2025 4:01 PM EDT XR SHOULDER 2 OR MORE VIEWS (RIGHT), XR SHOULDER 2 OR MORE VIEWS (LEFT) Referring clinician's provided indication for this examination in Epic: Pain COMPARISON: None FINDINGS: Right shoulder: No acute fracture or dislocation. Moderate to severe degenerative changes of the glenohumeral joint with inferior joint space narrowing and bulky inferior humeral head osteophyte. Moderate degenerative changes of the acromioclavicular joint. Reactive changes at the greater tuberosity. Small nonspecific foci of mineralization along the superior glenoid. The acromiohumeral interval is maintained. Left shoulder: No acute fracture or dislocation. Moderate degenerative changes of the glenohumeral joint with joint space narrowing and inferior osteophytes. Chondrocalcinosis. Moderate degenerative changes of the acromioclavicular joint. Mild reactive changes at the greater tuberosity. Small foci of amorphous mineralization adjacent to the greater tuberosity. The acromiohumeral interval is maintained. Vascular calcifications. Procedure Note Neymar Mcnally MD - 01/11/2025 XR SHOULDER 2 OR MORE VIEWS (RIGHT), XR SHOULDER 2 OR MORE VIEWS (LEFT) Referring clinician's provided indication for this examination in Epic:Pain COMPARISON: None FINDINGS: Right shoulder: No acute fracture or dislocation. Moderate to severedegenerative changes of the glenohumeral joint with inferior joint spacenarrowing and bulky inferior humeral head osteophyte. Moderatedegenerative changes of the acromioclavicular joint. Reactive changes atthe greater tuberosity. Small nonspecific foci of mineralization along thesuperior glenoid. The acromiohumeral interval is maintained. Left shoulder: No acute fracture or dislocation. Moderate degenerativechanges of the glenohumeral joint with joint space narrowing and inferiorosteophytes. Chondrocalcinosis. Moderate degenerative changes of theacromioclavicular joint. Mild reactive changes at the greater tuberosity.Small foci of amorphous mineralization adjacent to the greater tuberosity.The acromiohumeral interval is maintained. Vascular calcifications. IMPRESSION: 1. Moderate to severe right and moderate left glenohumeral jointdegenerative changes. 2. Moderate bilateral acromioclavicular joint degenerative changes. 3. Left rotator cuff calcific tendinosis. Amanda Aguilar MD IMG XR UPPER EXTREMITY Cheryle l Result * XR SHOULDER 2 VIEWS (RIGHT) (01/10/2025 2:15 PM EDT) Anatomical Region Laterality Modality Shoulder Right Computed Radiogr aphy 01/11/2025 3:59 PM EDT Impressions 01/11/2025 4:01 PM EDT 1. Moderate to severe right and moderate left glenohumeral joint degenerative changes. 2. Moderate bilateral acromioclavicular joint degenerative changes. 3. Left rotator cuff calcific tendinosis. Narrative 01/11/2025 4:01 PM EDT XR SHOULDER 2 OR MORE VIEWS (RIGHT), XR SHOULDER 2 OR MORE VIEWS (LEFT) Referring clinician's provided indication for this examination in Epic: Pain COMPARISON: None FINDINGS: Right shoulder: No acute fracture or dislocation. Moderate to severe degenerative changes of the glenohumeral joint with inferior joint space narrowing and bulky inferior humeral head osteophyte. Moderate degenerative changes of the acromioclavicular joint. Reactive changes at the greater tuberosity. Small nonspecific foci of mineralization along the superior glenoid. The acromiohumeral interval is maintained. Left shoulder: No acute fracture or dislocation. Moderate degenerative changes of the glenohumeral joint with joint space narrowing and inferior osteophytes. Chondrocalcinosis. Moderate degenerative changes of the acromioclavicular joint. Mild reactive changes at the greater tuberosity. Small foci of amorphous mineralization adjacent to the greater tuberosity. The acromiohumeral interval is maintained. Vascular calcifications. Procedure Note Neymar Mcnally MD - 01/11/2025 XR SHOULDER 2 OR MORE VIEWS (RIGHT), XR SHOULDER 2 OR MORE VIEWS (LEFT) Referring clinician's provided indication for this examination in Epic:Pain COMPARISON: None FINDINGS: Right shoulder: No acute fracture or dislocation. Moderate to severedegenerative changes of the glenohumeral joint with inferior joint spacenarrowing and bulky inferior humeral head osteophyte. Moderatedegenerative changes of the acromioclavicular joint. Reactive changes atthe greater tuberosity. Small nonspecific foci of mineralization along thesuperior glenoid. The acromiohumeral interval is maintained. Left shoulder: No acute fracture or dislocation. Moderate degenerativechanges of the glenohumeral joint with joint space narrowing and inferiorosteophytes. Chondrocalcinosis. Moderate degenerative changes of theacromioclavicular joint. Mild reactive changes at the greater tuberosity.Small foci of amorphous mineralization adjacent to the greater tuberosity.The acromiohumeral interval is maintained. Vascular calcifications. IMPRESSION: 1. Moderate to severe right and moderate left glenohumeral jointdegenerative changes. 2. Moderate bilateral acromioclavicular joint degenerative changes. 3. Left rotator cuff calcific tendinosis. Amanda Aguilar MD [facility] [place] XR UPPER EXTREMITY Cheryle l Result * Outside CT Cardiac Report Only (12/11/2024 9:25 AM EDT) us Amanda ADORNO CT CARDIAC Final Resul t * (ABNORMAL) Lipid panel (11/15/2024 12:51 PM EDT) HDL 44 mg/dL [facility] Comment: Interpretation <40 mg/dL: Low HDL cholesterol (major risk factor for CHD) Greater than or equal to 60 mg/dL: High HDL cholesterol ( negative risk factor for CHD) HDL - cholesterol is affected by a number of factors, e.g. smoking, excerise, hormones, sex and age. CHOLESTEROL 202 0 - 240 mg/dL [facility] TRIGLYCERIDES 122 30 - 160 mg/dL [facility] LDL 134(H) 50 - 129 mg/dL [facility] Comment: LDL levels in terms of risk for coronary heart disease: <100 mg/dL: Optimal 100-129 mg/dL: Near or above optimal 130-159 mg/dL: Borderline high 160-189 mg/dL: High >190 mg/dL: Very High CARDIAC RISK RATIO 4.6 3.4 - 5.0 C [facility] Blood 11/15/2024 12:5 1 PM EDT 11/15/2024 12:54 PM EDT us Amanda Aguilar MD LAB BLOOD ORDERABLES Final Result Performing Organization Address City/State/[facility] Co de Phone Number [address] [address] * (ABNORMAL) Comprehensive metabolic panel (05/04/2024 3:52 PM EST) SODIUM 135 133 - 146 mmol/L [facility] POTASSIUM 5.2(H) 3.3 - 5.1 mmol/L [facility] CHLORIDE 98 96 - 108 mmol/L [facility] CO2 26 21 - 35 mmol/L [facility] BUN 24(H) 6 - 19 mg/dL [facility] CREATININE 1.20 0.5 - 1.5 mg/dL [facility] GLUCOSE 117(H) 70 - 99 mg/dL [facility] ALBUMIN 4.6 3.9 - 4.8 g/dL [facility] TOTAL PROTEIN 7.8 6.5 - 8.0 g/dL [facility] CALCIUM 10.0 8.4 - 10.3 mg/dL [facility] ALKALINE PHOSPHATASE 74 39 - 117 U/L [facility] TOTAL BILIRUBIN 0.6 0.0 - 1.2 mg/dL [facility] AST 24 0 - 37 U/L [facility] ALT 19 0 - 40 U/L [facility] GLOBULIN 3.2 1 - 4.8 g/dL [facility] EGFR 65 >59 mL/min/1.7 3m2 [facility] Comment:Estimated glomerular filtration rate calculated using the CKD-EPI refit equation. ANION GAP 16 10 - 20 mmol/L [facility] Blood 05/04/2024 3:52 PM EST 05/04/2024 3:56 PM EST Amanda Aguilar MD LAB BLOOD ORDERABLES Final Result [facility] [address] [place] [address] * COLONOSCOPY FOR RESULT ENTRY ONLY (07/13/2023 12:25 PM EDT) us Historical Provider HEALTH MAINTENANCE Final Result from Last 3 Months or Most Recently Relevant to Health Maintenance Insurance DR RACHEL HOLDERLEYJESSICA [id number] MEDICARE PART A & B [place] MED[place] POS PPO REPLACEMENT MEDICARE PART A & B MEDICARE POS PPO REPLACEMENT MEDICARE PART A & B MEDICARE POS PPO REPLACEMENT MEDICARE PART A & B [place] MED[place] POS PPO REPLACEMENT MEDICARE PART A & B MEDICARE POS PPO REPLACEMENT MEDICARE PART A & B Member Subscriber Plan / Payer (Ef fective 2022-) Name:Kevin Vaughn Member ID:[id number] Relation to Subscriber:Self Name:Kevin Vaughn Subscriber ID:[id number] Payer ID:[id number] Group ID:Not on file Type:Medicare Address: [facility] [employer] [facility].[address] [address] [place] MEDICARE POS PPO REPLACEMENT Care Teams Communications Coordinator Relationship Specialty Start Date End Date Amanda Aguilar MD [address] [place] [address], [facility] [address] [place] [address] [email or web address] PCP - General Family Medicine 02/01/23 Trav Whaley MD [address] [place] [address], [facility] [address] [place] [address] [email or web address] Historical LMR Provider 01/22/17 Additional Source Comments The information contained in this document represents components of the legal health record. It is not the complete legal health record.[facility]
== END 2025-01-21 11:14 | disposition home or self-care (01) ==
LOC: HO.HUSH 07:22
PROVIDERS: PCP Student in an Organized Health Care Education/Training Program; Visit Provider Urology
DX: R97.20 Elevated prostate specific antigen [PSA] (principal); Z12.5 Encounter for screening for malignant neoplasm of prostate; N40.1 Benign prostatic hyperplasia with lower urinary tract symptoms; R35.0 Frequency of micturition; N32.81 Overactive bladder
CPT/HCPCS: 99214

== ENCOUNTER 2025-03-27 17:43 | Emergency (ER) | payer MEDICARE, SELFPAY ==
--- OUTSIDE RECORDS SUMMARY | 2024-05-28 03:07 | XMS_ITS | Continuity of Care Document ---
Author Organization [facility] Address [address] [place] [address] Phone Care Team Providers Care Land Reclamation Specialist Name Role Phone Dc Christianson MD Unavailable Unavailable Medications Medication Instructions Dosage Effective Dates (start - stop) Status Comments propranolol ER 60 mg capsule,24 hr,extended release take 1 capsule by oral route every day 60 MG - Active allopurinol 100 mg tablet take 1 tablet by oral route every day 100 MG - Active losartan 25 mg tablet take 1 tablet by oral route every day 25 MG - Active Eliquis 5 mg tablet take 1 tablet by oral route 2 times every day 5 MG - Active oxybutynin chloride 5 mg tablet take 1 tablet by oral route 2 times every day 5 MG - Active meloxicam 15 mg tablet take 1 tablet by oral route every day 15 MG - Active albuterol sulfate HFA 90 mcg/actuation aerosol inhaler inhale 2 puffs every 4 - 6 hours as needed for cough, wheezing or shortness of breath - No Longer Active doxycycline monohydrate 100 mg capsule take 1 capsule by oral route 2 times every day 100 MG - No Longer Active promethazine-DM 6.25 mg-15 mg/5 mL oral syrup take 1-2 TSP every 4 - 6 hours as needed - No Longer Active Procedures Procedure Date COVID 19 SARS Antigen Test Flu Rapid Immunoas; Flu Rapid Immunoas; Offic/outpt E&m Estab Mod-hi Advance Directives Directive Yes / No Effective Date File Name No Information Encounters Encounter Description Practice Location Reason(s) For Visit Diagnoses Date Provider Providers Copied on Encounter [facility], [address], [place], [place], [id number], [place] tel:[phone] [facility] [place] No Information 5 Meghan Irwin. [address], [facility] [address], [place], [address], [place]. tel:[phone] Offic/outpt E&m Estab Mod-hi [facility], [address], [place], [place], [id number], [place] tel:[phone] [facility] cough (chief complaint) Contact with and (suspected) exposure to COVID-19Cough, unspecifiedAcute bronchitis with bronchospasmBenign essential hypertension 5 Meghan Irwin. [address], [place] [address], [place], [address], [place]. tel:[phone] Referring Provider: Dc Christianson MD, [address] [facility] [address], [place], [address]. tel:[phone] Family History Family Member Type Diagnosis Age At Onset Family h/o Problem Diabetes Family h/o Problem Heart disease Payers Payer name Insurance type Covered alliance party ID Authoriza tion(s) [place] [id number] Social History Type Description Quantity Date Captured Comments Alcohol Use Details Unknown Caffeine Use Details Unknown Tobacco Use Status No Information Smoking Status No Information Sex Male Chief Complaint And Reason For Visit No Information Reason For Referral Reason For Referral No Information History Of Present Illness Encounter Date Complaint History Of Prese nt Illness cough Onset: 4 days ag o. Severity: moderate-severe. The patient describes the cough as hacking and productive (of yellow sputum). There are no aggravating factors. There are no relieving factors. Associated symptoms include chills, cough, fever, hoarseness, nasal congestion, post-nasal drainage, rhinitis, rhinorrhea, sinus pressure and wheezing. Pertinent negatives include dyspnea, dyspnea on exertion, epistaxis, fatigue, heartburn, hemoptysis, night sweats, pleuritic pain, sore throat and weight loss. Additional information: PRODUCTIVE COUGH SOB WITH COUGHING FITS. FEVERISH FEELING OFF AND ON FOR WEEKS. HX ASHMA. Functional Status Date Functional Assessmen t No Information Instructions Date Instruction Additional Infor paulino BLOOD PRESSURE GOOD, CONTINUE PRESENT MEDICATIONS AND FOLLOW UP PER PCP. AVOID DECONGESTANT USE, WHICH WILL CAUSE ELEVATION IN YOUR BLOOD PRESSURE Related to Benign essential hypertension HOT STEAM SHOWERS DA JOSE DANIEL CAN ASSIST WITH RELIEVING YOUR SYMPTOMS. USE A HUMIDIFIER AT BEDTIME UNTIL SYMPTOMS RESOLVE. IT IS RECOMMENDED TO USE SALINE RINSES TO ASSIST WITH ANY NASAL CONGESTION, FOLLOWED BY FLONASE NASAL SPRAY TO RELIEVE THE NASAL INFLAMMATION. GO TO ER IMMEDIATELY FOR SHORTNESS OF BREATH, CHEST PAIN OR BREATHING DIFFICULTIES NOT RESPONSIVE TO THE INHALER. IF YOU WERE GIVEN MEDICATION IN CLINIC, PLEASE TAKE THE MEDICATIONS PRESCRIBED. IF YOU HAVE NOT HAD A CHEST XRAY PERFORMED YET, IT IS RECOMMENDED TO FOLLOW UP FOR ONE IF YOUR SYMPTOMS PERSIST. Related to Acute bronchitis with bronchospasm Assessments Type Assessment Date No Information Patient Care Teams Name Effective Dates (start - stop) Status Members No Information
[2025-03-27 17:47] VITALS: BP 152/78; PULSE 69; RESP 16; TEMP 35.9; O2SAT 99; BMI 31.3
--- NOTE | 2025-03-27 17:47 | ED.GENADULT ---
HPI - General Adult General Chief complaint: Urogenital-Male Stated complaint: Blood in Urine Time Seen by Provider: 03/27/25 18:30 History of Present Illness ED Provider: shiela CHARLES narrative: Author / Clinician: Farooq Betancourt MD Chief Complaint Bright red blood in urine (gross hematuria) History of Present Illness 69-year-old male with history of atrial fibrillation on apixaban (Eliquis) who presents after noticing bright red urine earlier today. He reports a prior similar episode two years ago that was associated with urinary retention and severe discomfort, at which time he was treated for a urinary tract infection. Today he is able to void without difficulty and denies dysuria, flank pain, fever, chills, or abdominal pain. He increased oral fluid intake on the way to the ED and notes the urine has lightened since arrival. No recent trauma. Medications reviewed: apixaban, newly-started statin, Advil 600 mg yesterday for arthritic pain, and ?Relief Factor? supplement begun 4?5 days ago. Past medical problems include cervical spine disease (stenosis, herniated disc affecting the hand), chronic arthritis, and borderline renal function by history. He saw a urologist after the episode two years ago. He denies current back, lower abdominal, or flank pain. --- Review of Systems - Constitutional: No fevers, chills. - Genitourinary: Gross hematuria today; able to void; no dysuria, no urinary retention, no flank pain. - Gastrointestinal: Reports mild self-limited abdominal discomfort last week, now resolved; no current nausea, vomiting. - Musculoskeletal: Chronic neck/shoulder pain from cervical disease; no acute change. All other systems not discussed. --- Physical Examination Vital Signs: Measure Value ------- ----- Physical Exam: Gen: Alert, awake, well appearing, well hydrated. Head: Atraumatic. Eyes: Anicteric, normal conjunctiva. ENT: Moist mucosa, no pallor. Neck: Supple. Skin: No rash or ecchymosis noted. Respiratory: Breathing comfortably, clear to auscultation bilaterally. Cardiovascular: Regular rate and rhythm; no murmurs; extremities warm, well perfused, no edema. Abdominal: Soft, non-tender, no distension, no palpable masses. Genitourinary (POCUS): Bedside ultrasound shows normal-appearing kidneys without hydronephrosis; bladder without visible clots or significant residual volume. Neuro: Alert; grossly intact motor function in all extremities. Psych: Calm, appropriate. --- Assessment & Plan Preliminary Differential: - Gross hematuria ? etiologies include anticoagulation-related bleeding, urinary tract infection, nephrolithiasis, bladder or renal tumor, urethral/bladder ulceration. Medical Decision Making Patient with anticoagulation-associated gross hematuria but currently able to void and without evidence of obstruction on bedside ultrasound. No systemic symptoms or hemodynamic instability. Urology follow-up arranged for outpatient evaluation. Unclear source of hematuria no urologic obstruction no rapid or massive hemorrhage, anechoic urine which is reassuring on ultrasound Risk: - Low: Acute Uncomplicated - Plan: Initial Plan - Encourage aggressive oral hydration to dilute urine. - Continue apixaban; discussed higher stroke risk if stopped. - Return to ED for inability to void, worsening pain/pressure, or persistent bright red urine >48?72 hrs. - Outpatient urology follow-up after holidays for complete hematuria work-up. - Patient educated on signs of obstruction and when to seek emergent care. Data Analysis: - Imaging: Independently interpreted bedside renal/bladder ultrasound ? normal kidneys, no hydronephrosis or bladder clot. - ECG: Independent interpretation of the ECG: [ ] - POCUS: if performed independently see separate documentation Additional Complexity: - Social Determinants of health: [ ] - Consults: [ ] - Independent review of External records available: [ ] --- ED Course, Updates [id number] renal/bladder ultrasound performed; no hydronephrosis, no visible clots. Urine visually inspected at bedside ? 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 Patient tolerated examination well and remains hemodynamically stable. Disposition Discharged home with verbal return precautions; outpatient urology follow-up arranged. Critical Care: [N/A] Related Data Home Medications ?Medication ?Instructions ?Recorded ?Confirmed allopurinol 300 mg tablet 300 mg PO DAILY 04/08/20 01/21/25 clonazepam 0.5 mg tablet 0.5 mg PO DAILY PRN Anxiety 04/08/20 01/21/25 propranolol 80 mg tablet 80 mg PO BID 04/29/22 01/21/25 losartan 50 mg tablet 100 mg PO DAILY 09/09/22 01/21/25 acetaminophen 500 mg tablet 1,000 mg PO Q6H PRN Pain 01/16/23 01/21/25 ascorbic acid (vitamin C) 500 mg 1,000 mg PO DAILY 01/16/23 01/21/25 chewable tablet (Vitamin C) Previous Rx's ?Medication ?Instructions ?Recorded montelukast 10 mg tablet 10 mg PO BEDTIME for asthma #90 03/25/22 tabs apixaban 5 mg tablet (Eliquis) 5 mg PO BID #180 tabs 09/10/24 amlodipine 5 mg tablet (Norvasc) 5 mg PO DAILY #90 tabs 10/17/24 sildenafil 50 mg tablet 50 mg PO DAILY PRN sexual activity 12/19/24 #30 tabs Allergies Allergy/AdvReac Type Severity Reaction Status Date / Time No Known Drug Allergies Allergy Unknown NONE Verified 03/27/25 17:48 lexiscan AdvReac bradycardia, Uncoded 03/27/25 17:48 dizziness PMFSH Past Medical History Medical History Bronchitis Cough Cough due to bronchospasm Allergic rhinitis Paroxysmal atrial fibrillation LBBB (left bundle branch block) HTN (hypertension) Surgical History History of knee surgery History of hip surgery Family History Family History Father Myocardial infarction Mother Diabetes Social History Social History Household Members: None Housing: Condominium Do you presently have visiting nurse or other home services: No Alcohol intake: current Alcohol intake frequency: a few times a week Alcohol type: beer Patient Tobacco Use Status: Never used Tobacco Second Hand Smoke Exposure: No Advance Directives: Yes Advance Directives Information Provided: No Advance Directives on File: No service: No Physical Exam ED Vital Signs: Vital Signs - 24 hr 03/27/25 17:47 03/27/25 19:00 Temperature 96.7 F L 97.0 F Pulse Rate 69 70 Respiratory Rate 16 18 Blood Pressure 152/78 H 148/80 H Pulse Oximetry 99 98 Oxygen Delivery Method Room Air Room Air BMI result Body Mass Index 31.3 Course Course Course Narrative: This is a rapid medical exam performed by C. Tamie, DIRECTOR PRESALES: Additional HPI, ROS, PE not included below will be deferred to primary provider. 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 Called PCP, tried teledoc as well. An hour ago, urine was initially red then progressed to pink. Has similar sxs a few years ago, but didn't come in right away, and had UTI. Denies current pain or dysuria. Plan: labs, UA Procedures Procedure Narrative Procedure Narrative: EMERGENCY ULTRASOUND INTERPRETATION-Limited Retroperitoneal (Renal) [This study was ordered, performed, and interpreted by myself. The study reveals: Impression: NO EVIDENCE OF UROLOGIC OBSTRUCTION] [Indication: FLANK PAIN Bladder: ANECHOIC URINE Right Kidney: NO HYDRONEPHROSIS Left Kidney: NO HYDRONEPHROSIS Performed by: Farooq Betancourt MD Images were stored CPT: 16522] Medical Decision Making Lab Data 03/27/25 18:06 03/27/25 18:06 Labs: Lab Results 03/27/25 Range/Units 18:06 WBC 7.7 (4.8-10.8) X10*3/uL RBC 5.41 (4.60-5.80) X10*6/uL Hgb 15.4 (14.0-18.0) g/dl Hct 45.4 (42.0-52.0) % MCV 83.9 (80.0-98.0) fL MCH 28.5 (27.0-33.0) pg MCHC 33.9 (31.0-36.0) g/dl RDW 13.5 (11.0-16.0) % Plt Count 170 (160-400) X10*3/uL MPV 8.5 L (9.4-12.4) fL Immature Gran % (Auto) 0.5 H (0.0-0.4) % Neut % (Auto) 58.5 (45-73) % Lymph % (Auto) 23.6 (20-40) % [place] % (Auto) 11.4 H (2-11) % Eos % (Auto) 5.2 H (0-4) % Baso % (Auto) 0.8 (0-2) % Lymph # (Auto) 1.8 (1.2-4.9) X10*3/uL [place] # (Auto) 0.9 (0.1-1.2) X10*3/uL Eos # (Auto) 0.4 (0.0-0.4) X10*3/uL Baso # (Auto) 0.1 (0.0-0.2) X10*3/uL Abs Immat Gran (auto) 0.04 H (0.00-0.03) X10*3/uL Absolute Neuts (auto) 4.5 (2.0-8.3) x10*3/uL Absolute Nucleated RBC 0.000 (0.0-0.012) X10*3/uL Nucleated RBC % (auto) 0.0 (0.0-0.2) /100WBC PT 15.0 H (11.2-13.5) SEC INR 1.2 H (0.9-1.1) Sodium 138 (135-145) mmol/L Potassium 4.3 (3.3-5.1) mmol/L Chloride 103 (96-108) mmol/L Carbon Dioxide 27 (22-29) mmol/L Anion Gap 12 (12-20) BUN 28 H (9-16) mg/dL Creatinine 1.71 H (0.5-1.4) mg/dL Estim Creat Clear Calc 48.1 Estimated GFR 40 Random Glucose 94 (60-115) mg/dL Calcium 10.3 H D (8.4-10.2) mg/dL Total Bilirubin 0.7 (0.0-1.0) mg/dL AST 42 H (5-37) U/L ALT 47 H (0-40) U/L Alkaline Phosphatase 56 (39-117) U/L Total Protein 7.9 (6.5-8.0) g/dL Albumin 4.9 (3.5-5.0) g/dL Urine Color Glades A Urine Appearance Clear Urine pH 6.0 (5.0-9.0) Ur Specific [place] 1.010 (1.005-1.025) Urine Protein 30 (1+) H (Neg-Trace) mg/dL Urine Glucose (UA) Negative (Negative) mg/dL Urine Ketones Negative (Negative) mg/dL Urine Blood Large (3+) H (Negative) Urine Nitrite Negative (Negative) Ur Leukocyte Esterase Trace H (Negative) Urine RBC >20 H (0-2) /HPF Urine WBC 0-5 (0-5) /HPF Ur Squamous Epith Cells 0-2 (0-2) /HPF Urine Bacteria None Seen (None Seen) Hyaline Casts 0-2 (0-2) /LPF Discharge Plan Discharge Clinical Impression: Hematuria Patient Disposition: Home, Self-Care Instructions: Hematuria (ED) Additional Instructions: Discharge Summary and Instructions: Gross Hematuria on Anticoagulation DISCHARGE SUMMARY Patient: 69-year-old male Chief Complaint: Gross hematuria Diagnosis: Anticoagulation-associated gross hematuria Hospital Course: The patient presented to the Emergency Department with bright red urine (gross hematuria) earlier today. He has a history of atrial fibrillation and is currently taking apixaban (Eliquis) for stroke prevention. He reported a similar episode two years ago that was associated with urinary retention and was treated for urinary tract infection. At that time, he was evaluated by urology. Today, the patient is able to void without difficulty and denies dysuria, flank pain, fever, or abdominal pain. He reports the urine has lightened in color since increasing his oral fluid intake. He denies recent trauma. Recent medications include apixaban, a newly-started statin, Physical Examination: The patient was hemodynamically stable, well-appearing, and in no acute distress. Abdomen was soft and non-tender without masses or distension. Cardiovascular examination revealed regular rate and rhythm with good perfusion. [id number] Ultrasound: Bedside renal and bladder ultrasound demonstrated normal-appearing kidneys bilaterally with no hydronephrosis. The bladder showed no visible clots or significant residual volume. Laboratory Results: - Creatinine: 1.7 mg/dL - INR: 1.2 - Hemoglobin: Stable Assessment and Plan: The patient has anticoagulation-associated gross hematuria but is currently able to void without obstruction. There is no evidence of clot retention, hemodynamic instability, or acute urinary obstruction. Given his age and history of gross hematuria, outpatient urologic evaluation is warranted to rule out underlying urologic pathology, including malignancy. DISCHARGE INSTRUCTIONS Medications: - Continue apixaban (Eliquis) as prescribed. Do not stop this medication without consulting your physician, as stopping anticoagulation increases your risk of stroke. The presence of blood Do not take ibuprofen or other nonsteroidal anti-inflammatory medications Return to the ED if you are unable to urinate or you develop high fevers or persistent bright red blood in the urine for several days and inability to follow up with Urology Call Dr. Carver urology for follow up Prescriptions: No Action montelukast 10 mg tablet 10 mg PO BEDTIME Qty: 90 0RF propranolol 80 mg tablet 80 mg PO BID Eliquis 5 mg tablet 5 mg PO BID Qty: 180 3RF amlodipine [Norvasc] 5 mg tablet 5 mg PO DAILY Qty: 90 0RF sildenafil 50 mg tablet 50 mg PO DAILY PRN (Reason: sexual activity) Qty: 30 1RF Rx Instructions: administer 30 minutes to 1 hour before activity do not take within 4 hours of taking Tamsulosin acetaminophen 500 mg Tablet 1,000 mg PO Q6H PRN (Reason: Pain) ascorbic acid (vitamin C) [Vitamin C] 500 mg Tablet,Chewable 1,000 mg PO DAILY allopurinol 300 mg tablet 300 mg PO DAILY clonazepam 0.5 mg tablet 0.5 mg PO DAILY PRN (Reason: Anxiety) losartan 50 mg tablet 100 mg PO DAILY Interventions: ED Discharge Assessment Last Done: 03/27/25 19:00 Discharge Date/Time: 03/27/25 19:00 Print Language: Latvian
[2025-03-27 18:11] LABS: MANUAL DIFF FLAG NO
[2025-03-27 18:12] LABS: Hematocrit 45.4 % (42.0-52.0); Hemoglobin 15.4 g/dl (14.0-18.0); Imm Gran Abs Auto 0.04 X10*3/uL (0.00-0.03); Imm Gran Pct Auto 0.5 % (0.0-0.4); Lymphocytes Absolute Auto 1.8 X10*3/uL (1.2-4.9); Mean Corpuscular HGB Conc 33.9 g/dl (31.0-36.0); Mean Corpuscular Hemoglobin 28.5 pg (27.0-33.0); Mean Corpuscular Volume 83.9 fL (80.0-98.0); NRBC Abs Auto 0.000 X10*3/uL (0.0-0.012); NRBC Pct Auto 0.0 /100WBC (0.0-0.2); Platelet Count 170 X10*3/uL (160-400); Red Blood Count 5.41 X10*6/uL (4.60-5.80); White Blood Count 7.7 X10*3/uL (4.8-10.8)
--- OUTSIDE RECORDS SUMMARY | 2025-03-27 18:14 | XMS_ITS | Encounter Summary ---
Author Organization [facility] Address [address] [place] [address] [place] [phone] Phone Care Team Providers Care Sas Developer Name Role Phone Trav Whaley MD Unavailable [phone] Amanda Aguilar MD Primary Care Provider Reason for Visit * Reason Onset Date Comments Imaging 03/12/2025 Percent for MRI location 03/13/2025 Encounter Details Date Type Department Care Team (Late st Contact Info) Description 03/12/2025 Telephone [facility] Primary Care Clinic [address], [place] [phone] Amanda Aguilar MD [address] [facility], [address] [place], [place] [id number] [email or web address] Imaging (Percent for MRI location 03/13/2025) Social History Tobacco Use Types Packs/Day Years [...] as of this encounter Progress Notes * Amanda Aguilar MD - 03/13/2025 1:05 PM EST Incredible, thank you for all of your hard work to get this scheduled and covered! * Christina Byrnes LPN - 03/13/2025 12:57 PM EST Yes confirmed coverage with Candida at [facility]. * Amanda Aguilar MD - 03/13/2025 12:24 PM EST Incredible. And to confirm insurance coverage is all set? * Christina Byrnes LPN - 03/13/2025 11:50 AM EST Called Candida at [facility] he is scheduled for his MRI R/L shoulder 03/23/25. Called and confirmed appt w/ Kevin. * Christina Byrnes LPN - 03/13/2025 9:03 AM EST Yomaira returned call from [facility] she needs the orders checked the NPI # we have for the auth and they do not match. She suggested we reach out to [place] - called and spoke to a Elaina and they share the same NPI as [place], [place] facility - [facility] Call placed to [facility] and he is going to try to switch NPI number on the auth to [facility]. Faxed both orders and demographic to [facility] faxed to [phone]. Called [facility] and notified Candida that we have corrected to NPI number. Per Candida once theyreceive the orders and demographic they will contact Kevin to schedule. Kevin called and updated with the above information. * Christina Byrnes LPN - 03/13/2025 8:54 AM EST Called placed to [facility] and upright return call pending. Left message- return call pending. [facility] open - upright [facility] [address] [place] [phone] * Christina Byrnes LPN - 03/12/2025 4:13 PM EST Kevin called he had not heard regarding PA status. Called [facility] a message was sent through referral messages at 11:14 am. They were unable change the auth w/o starting a new auth and the last one needed a peer/peer. The auth was obtained to [facility]. Call placed to [facility] spoke to [place] [address] [phone] they have not received the auth or the order.They only have upright and open MRI. Kevin notified and contact info given; Shine at [facility] notified and appt cancelled for tomorrow. Kevin expressed frustration with the auth process and requested [employer] Lisa Marketing Admin notified- thiswriter notified [employer]. Both referral dept and [facility] closed for the day. * Christina Byrnes LPN - 03/12/2025 10:19 AM EST Called Kevin and the MRI for R/L shoulder. Called and spoke to Shine the address and the NPI needs to corrected. [facility] [place] [address] Tax Id [id number] Out of network might need to be manually input . Shine needs to know prior to 4 pm or the scan will be cancelled. [facility] Betancourt From central referrals notified. * Liliam Dominguez - 03/12/2025 9:55 AM EST Pt came in to about his MRI appointment. Pt says his appointment is tomorrow and he is very anxious it will be cancelled. Pt said they have been in contact with Shine from [facility], who says the MRI location must be changed to [place], [place]. Pt said to call back Shine at [phone] to follow up on what paperwork needs to be sent over. Thank you! * Jessica Garrett - 03/12/2025 8:58 AM EST Shine called advised that Percent for MRI location needs to be changed pt is scheduled at [facility] for 03/13/2025. If this is not able to be changed appt would need to be canceled Central Support Lance Crewmember (Please do not reply to this user; this inbox is not monitored.) Thank you. documented in this encounter Plan of Treatment Upcoming Encounters Date Type Department Care Team (Late st Contact Info) Description 04/18/2025 4:30 PM EST Office Visit [facility] Primary Care Clinic [address] [place] [address] Amanda Aguilar MD [address] [place] [phone] [email or web address] documented as of this encounter Visit Diagnoses Not on filedocumented in this encounter Additional Health Concerns Assessment Noted Time PHQ-2 Depression Total Score: 0 05/03/19 25 4:11 PM EST documented as of this encounter Care Teams Sas Developer Relationship Specialty Start Date End Date Amanda Aguilar MD [address] [place] [phone] [email or web address] PCP - General Family Medicine 02/01/23 Trav Whaley MD [address] [place] [phone] [email or web address] Historical LMR Provider 01/22/17 documented as of this encounter Additional Source Comments The information contained in this document represents components of the legal health record. It is not the complete legal health record.[facility]
--- OUTSIDE RECORDS SUMMARY | 2025-03-27 18:14 | XMS_ITS | Clinical Summary ---
Author Organization [facility] Address [address] [phone] Phone Care Team Providers Care Tar Heater Operator Name Role Phone ShreeseferinoOrdonezAmanda Dawood Primary Care Provider + Allergies Active Allergy [...] Encounters Date Type Department Care Team Description 02/13/2025 Orders Only [facility] [address] [phone] Tammy De La Cruz Stage 3a chronic kidney disease (HCC) (Primary [...] Care Team (Late st Contact Info) Description 04/25/2025 9:00 AM EST Office [facility] [address] [phone] Fani Friedman ARNP [address] [phone] Health Maintenance Due Date Last Done Comments Pneumococcal Vaccine: 50+ Years (1 of 2 - PCV) 1972 Colorectal Cancer Screening: Annual FOBT 2002 Colorectal Cancer Screening: Colonoscopy 2002 Colorectal Cancer Screening: Sigmoidoscopy 2002 Influenza Vaccine Completed 01/16/2025, , 01/31/2023, Additional history exists Hepatitis B Vaccine Aged Out No longe r eligible based on patient's age to complete this topic Insurance [facility] Care Teams Tar Heater Operator Relationship Specialty Start Date End Date Amanda Aguilar [address] [place] [address] [address] [place], [place] [phone] PCP - General Internal Medicine 06/07/23
--- OUTSIDE RECORDS SUMMARY | 2025-03-27 18:14 | XMS_ITS | Encounter Summary ---
Author Organization [facility] Address [address] [place] [address] Phone Care Team Providers Care Dental Mechanic Name Role Phone Trav Whaley MD Unavailable [phone] Amanda Aguilar MD Primary Care Provider [phone] Reason for Visit * Reason Onset Date Comments Hematuria 03/27/2025 After Hours Call Encounter Details Date Type Department Care Team (Late st Contact Info) Description 03/27/2025 Nurse Triage [facility] Primary Care Sales Planning Manager Program [address] [place] [address] Kailey Hogan, [place] [phone] [email or web address] Hematuria (After Hours Call) Social History Tobacco Use Types Packs/Day Years [...] as of this encounter Progress Notes * Kailey Hogan RN - 03/27/2025 5:03 PM EST After Hours Call Note 03/27/2025 5:03 PM Caller: Patient Chief complaint: PLEASE CALL RE:BLOOD IN HIS URINE. HPI: RN called and reached Kevin. Kevin reports approximately two hours ago, he went to go urinate and he noticed red blood in his urine. He reports a few years ago this happened to him and he had a bad UTI he reports he is currently outside of the urgent care in [place], [place] and is going in. No back pain, no fevers, but feels warm. No difficulty on urination, no pain on urination. Has incontinence at baseline. No increased incontinence. Pt is on eliquis. He denies bleeding anywhere else.He denies dizziness or shortness of breathe Plan: pt reports he is currently outside of the urgent care in [place], [place]. He will be going into the urgent care. Advised patient if he encounters any back pain, difficulty urinating, unable to urinate, worsening bleeding or clotting, he should proceed to the emergency room instead. Pt did verbalize understanding and was in agreement to plan Medications prescribed: NA Disposition: Urgent Care Reason for Disposition Taking Coumadin (warfarin) or other strong blood thinner, or known bleeding disorder (e.g., thrombocytopenia) Protocols used: Urine - Blood In-ADULT- Nurse Triage Encounter Note Reason for Triage Steveamado Kevin contacted office for Hematuria After Hours Call Call Disposition Schedule Same Day Visit/Appt Disposition Comments: Patient/caregiver understands and will follow disposition: Initial Symptom Screening and Assessment IA None Care Advice No Care Advice given for this encounter. Patient will call back with additional questions or if symptoms change or worsen Kailey Hogan RN Reason for Disposition and Assessment documented in this encounter Plan of Treatment Upcoming Encounters Date Type Department Care Team (Late st Contact Info) Description 04/18/2025 4:30 PM EST Office Visit [facility] Primary Care Clinic [address] [place] [phone] Amanda Aguilar MD [address] [place] [phone] [email or web address] documented as of this encounter Visit Diagnoses Not on filedocumented in this encounter Additional Health Concerns Assessment Noted Time PHQ-2 Depression Total Score: 0 05/03/19 25 4:11 PM EST documented as of this encounter Care Teams Dental Mechanic Relationship Specialty Start Date End Date Amanda Aguilar MD [address] [place] [phone] [email or web address] PCP - General Family Medicine 02/01/23 Trav Whaley MD [address] [place] [address], [address] [place] [address] [email or web address] Historical LMR Provider 01/22/17 documented as of this encounter Additional Source Comments The information contained in this document represents components of the legal health record. It is not the complete legal health record.[facility]
--- OUTSIDE RECORDS SUMMARY | 2025-03-27 18:14 | XMS_ITS | Clinical Summary ---
Author Organization [facility] Address [address] [place] [address] Phone Care Team Providers Care Tafe Registrar Name Role Phone Trav Whaley MD Unavailable [phone] Amanda Aguilar MD Primary Care Provider Allergies Active Allergy Reactions Criticality Noted Date Comments Meloxicam Other (See Comments) High 06/05/2024 Dizziness, low b/p Medications acetaminophen (TYLENOL) 500 MG tablet Take by mouth every 6 (six) hours as needed. Active allopurinol (ZYLOPRIM) 300 MG tabletIndication s:Gout Take 1 tablet (300 mg total) by mouth daily. 90 tablet 02/02/20 22 Active fluticasone propionate (FLONASE) 50 mcg/actuation nasal spray 1 spray by Nasal route daily. Active apixaban (ELIQUIS) 5 mg tablet Take 5 mg by mouth 2 (two) times a day. Active sildenafiL (VIAGRA) 50 mg tablet PLEASE SEE ATTACHED FOR DETAILED DIRECTIONS 02/23/20 23 Active losartan (COZAAR) 100 MG tabletIndication s:Benign essential hypertension TAKE 1 TABLET BY MOUTH EVERY DAY 90 tablet 08/31/19 25 Active propranoloL (INDERAL) 80 MG immediate release tabletIndication s:HTN (hypertension) TAKE 1 TABLET BY MOUTH 2 TIMES A DAY. 180 tablet 3 10/20/19 25 Active gabapentin (NEURONTIN) 100 MG capsule Take 300 mg by mouth 2 (two) times a day. 09/19/19 25 Active amLODIPine (NORVASC) 5 MG tablet Take 5 mg by mouth daily. Active rosuvastatin (CRESTOR) 40 MG tablet Take 1 tablet (40 mg total) by mouth daily. 90 tablet 1 12/13/19 25 Active clonazePAM (KLONOPIN) 0.5 MG tabletIndication s:Anxiety state TAKE 1 TABLET (0.5 MG TOTAL) BY MOUTH 2 (TWO) TIMES A DAY NEEDED FOR ANXIETY. 30 tablet 03/27/20 25 Active clonazePAM (KLONOPIN) 0.5 MG tabletIndication s:Anxiety state Take 1 tablet (0.5 mg total) by mouth 2 (two) times a day as needed for anxiety. 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 If not then we will refer to other upright, open MRI machine that he will identify. Bilateral shoulder pain 11/01/2024 Assessment & Plan (11/01/2024 4:53 PM EDT): Bilateral shoulder pain for which she is followed by orthopedics who are recommending MRI of bilateral shoulders to evaluate for rotator cuff damage. Unfortunately running into issues with Hernández profound claustrophobia which has been unable to overcome with with an open MRI and use of benzodiazepines. Given this I am inquiring whether MRI under anesthesia would be a possibility at [facility]. If not then we will refer to [...] XR L- Spine. He is established with dot compliance specialist already, and encouraged patient to follow-up [...] to discuss reducing dose with his specialists (keyboard action assembler and transportation modeler). - Recommended dose reduction of allopurinol to [...] Plan (05/04/2024 3:09 PM EST): Followed by cardiologyPINA with [facility], not on rate controlling medication [...] of multiple joints, followed by orthopedics in [place], receives CSI in multiple sites. - Continue [...] Kevin was recently hospitalized for hematuria at [place]. I requested records to be reviewed. He is set up with a urologist at [place]. He is taking his Flomax as directed. He was found to have a UTI during hospitalization and has completed his antibiotics. He denies any dysuria. He notes that his urine was a little pink yesterday but no issues today. I can only speculate on the labs that were done at [place] but again will review them once they [...] Encounters Date Type Department Care Team Description 03/27/2025 Nurse Triage [facility] Manager Latin Program [address] [place] [address] Kailey Hogan RN Hematuria (After Hours Call) 03/27/2025 Refill [facility] [address] [place] [address] Amanda Aguilar MD Medication Refill 03/12/2025 Telephone [facility] [address] [place] [address] Amanda Aguilar MD Imaging (Percent for MRI location 03/13/2025) 03/07/2025 Ancillary Orders [facility],Outside Imaging [address] [place] [address] Unknown, Danielle, 03/07/2025 Ancillary Orders [facility],Outside Imaging [address] [place] [address] Unknown, Danielle, 03/04/2025 Telephone [facility] [address] [place] [address] Amanda Aguilar MD MRI records 03/04/2025 Orders Only [facility] [address] [place] [address] ProviderAna MD 02/21/[address] [address] Anuja Almanza RN call back 01/16/2025 10:30 AM EDT Office Visit [address] [address] Amanda Aguilar MD Atherosclerosis of quileute coronary artery of quileute heart without angina pectoris (Primary Dx); Cervical radiculopathy; Lumbar radiculopathy; Mixed hyperlipidemia; Benign essential hypertension; Numbness and tingling; Status post right knee replacement; Chronic pain of both shoulders; Primary osteoarthritis of both knees 01/10/2025 1:21 PM EDT - 01/10/2025 11:59 PM EDT Hospital Encounter [facility], X-Ray - [address] [place] [address] Amanda Aguilar MD Discharge Disposition: Home or Self Care 01/10/2025 1:21 PM EDT - 01/10/2025 11:59 PM EDT Hospital Encounter [facility], X-Ray - [address] [place] [address] Amanda Aguilar MD Discharge Disposition: Home or Self Care 12/27/2024 Orders Only [facility] [address] [place] [address] Amanda Aguilar MD Chronic pain of both shoulders (Primary Dx) from Last 3 Months Immunizations Immunization Administration [...] Description 04/18/2025 4:30 PM EST Office Visit [facility] [address] [place] [address] Amanda Aguilar MD [address] [facility], [address] [place] [address] [email or web address] Health Maintenance Due Date [...] (1 - 1-dose 75+ series) 2028 COLONOSCOPY 07/13/2030 07/13/2023, 01/11/2008 COLORECTAL CANCER SCREENING 07/13/2030 Adult Td,Tdap Booster 05/04/2034 05/04/2024 , 05/18/2013, [...] Name Priority Date/Time Associated Diagnosis Comments OUTSIDE MR SPINE REPORT ONLY Routine 03/04/2025 3:59 PM EST MRI CERVICAL SPINE Routine 02/19/2025 7: 56 PM EST Cervical radiculopathy MRI SHOULDER (LEFT) Routine 02/19/2025 7 :56 PM EST Chronic pain of both shoulders MRI SHOULDER (RIGHT) Routine 02/19/2025 7:56 PM EST Chronic pain of both shoulders XR SHOULDER 2 VIEWS (LEFT) Routine 01/10/2025 2:19 PM EDT Chronic pain of both shoulders XR SHOULDER 2 VIEWS (RIGHT) Routine 01/10/2025 2:15 PM EDT Chronic pain of both shoulders COMPREHENSIVE METABOLIC PANEL (CMP) Routine 05/04/2024 3:52 PM EST Screening for condition COLONOSCOPY FOR RESULT ENTRY ONLY Routine 07/13/2023 12:25 PM EDT from Last 3 Months or Most Recently Relevant to Health Maintenance Results * Outside MR Spine Report Only (03/04/2025 3:59 PM EST) us Historical Provider MD ADORNO MR SPINE Final Res ult * XR SHOULDER 2 VIEWS (LEFT) (01/10/2025 [...] XR UPPER EXTREMITY Cheryle l Result * (ABNORMAL) Comprehensive metabolic panel (05/04/2024 3:52 PM EST) SODIUM 135 133 - 146 mmol/L [facility] POTASSIUM 5.2(H) 3.3 - 5.1 mmol/L [facility] CHLORIDE 98 96 - 108 mmol/L [facility] CO2 26 21 - 35 mmol/L [facility] BUN 24(H) 6 - 19 mg/dL [facility] CREATININE 1.20 0.5 - 1.5 mg/dL [facility] GLUCOSE 117(H) 70 - 99 mg/dL [facility] ALBUMIN 4.6 3.9 - 4.8 g/dL [facility] TOTAL PROTEIN 7.8 6.5 - 8.0 g/dL [facility] CALCIUM 10.0 8.4 - 10.3 mg/dL [facility] ALKALINE PHOSPHATASE 74 39 - 117 U/L [facility] TOTAL BILIRUBIN 0.6 0.0 - 1.2 mg/dL [facility] AST 24 0 - 37 U/L [facility] ALT 19 0 - 40 U/L [facility] GLOBULIN 3.2 1 - 4.8 g/dL [facility] EGFR 65 >59 mL/min/1.7 3m2 [facility] Comment:Estimated glomerular filtration rate calculated using the CKD-EPI refit equation. ANION GAP 16 10 - 20 mmol/L [facility] Blood 05/04/2024 3:52 PM EST 05/04/2024 3:56 PM EST Amanda Aguilar MD LAB BLOOD BKR ORDERABLES Fi nal Result [facility] [address] [place] [address] * COLONOSCOPY FOR RESULT ENTRY ONLY (07/13/2023 12:25 PM EDT) us Historical Provider HEALTH MAINTENANCE Final Result from Last 3 Months or Most Recently Relevant to Health Maintenance [place] [address] [place] [address] MEDICARE PART A & B [employer] [place] MED[place] POS PPO REPLACEMENT MEDICARE PART A & B [place] [place] MEDIC[place] POS PPO REPLACEMENT MEDICARE PART A & B [place] [place] MEDIC[place] POS PPO REPLACEMENT MEDICARE PART A & B Member Subscriber Plan / Payer (Ef fective 2022-) Name:Kevin Vaughn Member ID:[id number] Relation to Subscriber:Self Name:Kevin Vaughn Subscriber ID:[id number] Payer ID:[id number] Group ID:Not on file Type:Medicare Address: [place] [id number] [employer] [place] MEDICARE POS PPO REPLACEMENT MEDICARE PART A & B [place] [place] MEDIC[place] POS PPO REPLACEMENT MEDICARE PART A & B [place] [place] MEDIC[place] POS PPO REPLACEMENT Care Teams Tafe Registrar Relationship Specialty Start Date End Date Amanda Aguilar MD [address] [facility], [facility] [address] [id number] [email or web address] PCP - General Family Medicine 02/01/23 Trav Whaley MD [address] [place] [address], [facility] [address] [address] [email or web address] Historical LMR Provider 01/22/17 Additional Source Comments The information contained in this document represents components of the legal health record. It is not the complete legal health record.[facility]
--- OUTSIDE RECORDS SUMMARY | 2025-03-27 18:14 | XMS_ITS | Encounter Summary ---
Author Organization [facility] Address [address] [place] [address] [place] [address] Phone Care Team Providers Care Childcare Provider Name Role Phone Trav Whaley MD Unavailable Amanda Aguilar MD Primary Care Provider Reason for Visit * Reason Comments Medication Refill Encounter Details Date Type Department Care Team ([facility] st Contact Info) Description 03/27/2025 Refill [facility] [address] [place] [address] Amanda Aguilar MD [address] [facility] [address] [place] [address] [email or web address] Medication Refill Social History Tobacco Use Types Packs/Day Years [...] as of this encounter Progress Notes * Cora Garrett MA - 03/27/2025 1:08 PM EST Images from the original note were not included. Rx Care Gap Status - Instructions for Clinical Staff (prescriber discretion applies): > Mismatch review guide > Check PDMP for all controlled medication requests. Visit Info Last visit: 01/16/2025 Amanda Aguilar MD - Family Medicine [facility] > Requested f/u: Return in about 3 months (around 04/18/2025) for Recheck. Upcoming visit: 04/18/2025 Amanda Aguilar MD - Family Medicine [facility] ACTIONS TAKEN BY Cora Garrett MA MAC - Checked PDMP/MassPAT. While we confirm a pain/opioid contract exists, we cannot be held liable for any interpretation of its effective start and end dates. Non-Opioid Controlled Substance With PDMP Rx Protocol - clonazepam Renewal is at prescriber discretion. Visit in the past 12 months: Yes documented in this encounter Plan of Treatment Upcoming Encounters Date Type Department Care Team (Late st Contact Info) Description 04/18/2025 4:30 PM EST Office Visit [facility] [address] [place] [address] [place] [address] Amanda Aguilar MD [address] [place] [address] [email or web address] documented as of this encounter Visit Diagnoses Diagnosis Anxiety state Anxiety state, unspecified documented in this encounter Additional Health Concerns Assessment Noted Time PHQ-2 Depression Total Score: 0 05/03/19 25 4:11 PM EST documented as of this encounter Care Teams Childcare Provider Relationship Specialty Start Date End Date Amanda Aguilar MD [address] [place] [address] [email or web address] PCP - General Family Medicine 02/01/23 Trav Whaley MD [address] [place], [place] [address] [address] [email or web address] Historical LMR Provider 01/22/17 documented as of this encounter Additional Source Comments The information contained in this document represents components of the legal health record. It is not the complete legal health record.[facility]
--- OUTSIDE RECORDS SUMMARY | 2025-03-27 18:14 | XMS_ITS | Encounter Summary ---
Author Organization [facility] Address [address] [place] [address] Phone Care Team Providers Care Middle [employer] Football Coach Name Role Phone Trav Whaley MD Unavailable [phone] Amanda Aguilar MD Primary Care Provider [phone] Reason for Referral * MRI/CAT Scan - Closed Specialty Diagnoses / Procedures Referred By Liberty johnston Referred To Contact Radiology Procedures Outside MR Spine Report Only [facility] [address] [place] [address] Phone: tel: fax: Referral ID Status Reason Start Date Expiration Date Visits Re quested Visits Authorized [id number] Closed 03/04/2025 1 1 Encounter Details Date Type Department Care Team (Late st Contact Info) Description 03/04/2025 Orders Only [facility] [address] [place] [address] Ana Valdivia MD [address] [place] [address] Social History Tobacco Use Types Packs/Day Years [...] Description 04/18/2025 4:30 PM EST Office Visit [facility] [address] [place] [address] Amanda Aguilar MD [address] [facility], [address] [address] [email or web address] documented as of this encounter Procedures Procedure Name Priority Date/Time Associated Diagnosis Comments OUTSIDE MR SPINE REPORT ONLY Routine 03/04/2025 3:59 PM EST documented in this encounter Results * Outside MR Spine Report Only (03/04/2025 3:59 PM EST) us Historical Provider MD ADORNO MR SPINE Final Res ult documented in this encounter Visit Diagnoses Not on filedocumented in this encounter Additional Health Concerns Assessment Noted Time PHQ-2 Depression Total Score: 0 05/03/19 25 4:11 PM EST documented as of this encounter Care Teams Middle [employer] Football Coach Relationship Specialty Start Date End Date Amanda gAuilar MD [address] [facility], [facility] [address] [id number] [email or web address] PCP - General Family Medicine 02/01/23 Trav Whaley MD [address] [place] [address], [address] [address] [email or web address] Historical LMR Provider 01/22/17 documented as of this encounter Additional Source Comments The information contained in this document represents components of the legal health record. It is not the complete legal health record.[facility]
[2025-03-27 18:17] LABS: Appearance Urine Clear; Glucose Urine UA Negative (Negative); PH 6.0 (5.0-9.0); Specific Gravity - Urine 1.010 (1.005-1.025); UMIC TRIGGER UACC YES
[2025-03-27 18:18] LABS: INTERNATIONAL NORM RATIO 1.2 (0.9-1.1); Prothrombin Time 15.0 SEC (11.2-13.5)
[2025-03-27 18:29] LABS: Alanine Aminotransferase 47 U/L (0-40); Albumin Level 4.9 g/dL (3.5-5.0); Alkaline Phosphatase 56 U/L (39-117); Anion Gap 12 (12-20); Aspartate Amino Transferase 42 U/L (5-37); Blood Urea Nitrogen 28 mg/dL (9-16); Calcium 10.3 mg/dL (8.4-10.2); Carbon Dioxide 27 mmol/L (22-29); Chloride 103 mmol/L (96-108); Creatinine Clr Calc Pharmacy 48.1; Estimated Glomerular Filt Rate 40; Potassium 4.3 mmol/L (3.3-5.1); Sodium 138 mmol/L (135-145); Total Protein 7.9 g/dL (6.5-8.0)
[2025-03-27 19:00] VITALS: BP 148/80; PULSE 70; RESP 18; TEMP 36.1; O2SAT 98
== END 2025-03-27 19:00 | disposition home or self-care (01) ==
PROVIDERS: Registered Nurse Emergency; Emergency Provider Emergency Medicine; PCP Student in an Organized Health Care Education/Training Program
DX: R31.9 Hematuria, unspecified (principal); I48.0 Paroxysmal atrial fibrillation; I10 Essential (primary) hypertension; Z79.01 Long term (current) use of anticoagulants; Z79.899 Other long term (current) drug therapy
CPT/HCPCS: 36415; 76775; 80053; 81001; 85025; 85610; 99282; 99284